=== PATIENT | female | born 1950 | race Caucasian/White ===

== ENCOUNTER 2020-03-30 19:24 | Inpatient (IN) | payer MEDICARE, MEDICAID, SELFPAY ==
[2020-03-30] VITALS (8 sets, daily range): BP systolic 133–167; BP diastolic 75–102; PULSE 95–117; RESP 20–36; TEMP 37.1; O2SAT 93–95
--- NOTE | ~2020-03-30 | XR_ITS ---
EXAMINATION: XR chest 2V DATE: 03/30/2020 20:33 INDICATION: Hypertension and asthma presenting with shortness of breath. TECHNIQUE: PA and lateral views of the chest were obtained. COMPARISON: Chest radiograph and CT dated 02/23/19 and chest radiograph dated 10/21/2016 FINDINGS: Emphysema with prominent chronic pleural parenchymal scarring at the bilateral apices which appears u nchanged since 10/20/2017. Small amount of dense linear embolized methylmethacrylate in a right middl e lobar pulmonary artery. No other airspace opacities, pulmonary edema, pleural effusion or pneumotho rax. The cardiomediastinal silhouette is normal. Old healed lateral right sixth rib fracture. Chronic compression fractures at T5-T7 with vertebral plasties at both T5 and T7. Embolized methylmethacryla te can be extending into vessels arising from the anterior aspect of the T7 vertebral body. IMPRESSION: 1. Emphysema with stable appearance of chronic prominent biapical pleural-parenchymal scarring. No ac julia cardiopulmonary disease. Reviewed, dictated and finalized at location A. IMPRESSION: 1. Emphysema with stable appearance of chronic prominent biapical pleural-paren chymal scarring. No acute cardiopulmonary disease.
--- NOTE | ~2020-03-30 | CT_ITS ---
EXAMINATION: CTA chest PE protocol EXAM DATE: 03/31/2020 17:28 INDICATION: Shortness of breath. History of COPD. TECHNIQUE: Spiral CTA of the chest (pulmonary arteries) was performed with 100 cc Omnipaque 350 intr avenous contrast injection. Images were acquired during the pulmonary arterial phase. Coronal maxi mum intensity projection 3D-reconstructions were created by the technologist on dedicated workstation . Axial, coronal and sagittal reformatted images were reviewed. The dose-length product (DLP) for t his examination was 152.12 mGy-cm. The exposure was tailored according to patient size (auto mA exp osure control), and iterative reconstruction (ASIR) was used as additional dose reduction technique. Comparison is made to prior examination from 02/23/2019. FINDINGS: Pulmonary arteries are well opacified and without intraluminal thrombus. Again there is s mall amount of embolized methyl methacrylate in right middle lobe segmental artery. No thoracic aorti c dissection. There are biapical opacities again noted consistent with scarring. The lungs are otherwise clear, wit h interval resolution of previously seen bilateral reticular nodular infectious process. There are no pleural or pericardial effusions. The scattered regions of right lower lobe endobronchial debris without evidence of postobstructive pneumonia. There is moderate emphysema and hyperinflation. There is no mediastinal, hilar or axillary lymphade nopathy. There is no pneumothorax. Heart normal in size. There is mild to moderate coronary art erial calcification, arterial sclerosis. Gallstones. T5, 6, 7 compression fractures, with methylmethacrylate injection of the T5 and T7 level s. There is moderate to severe loss of the T6 vertebral body height. Stable compared to prior study. IMPRESSION: 1. No pulmonary emboli or acute cardiopulmonary findings. 2. Moderate emphysema and hyperinflation. 3. Apical scarring Reviewed, dictated and finalized at location A.
--- NOTE | 2020-03-30 19:35 | ECG_ITS ---
Measurements Intervals [place] Rate: 114 P: 76 CO: 141 QRS: -7 QRSD: 93 T: 64 QT: 307 QTc: 424 Interpretive Statements SINUS TACHYCARDIA POSSIBLE RIGHT ATRIAL ENLARGEMENT EARLY PRECORDIAL R/S TRANSITION ABNORMAL ECG Electronically Signed On 03-31-2020 7:08:41 CDT by Gerson Zazueta D.O.
[2020-03-30 19:48] LABS: Basophils Percent Auto 0.3 % (0.2-1.2); Eosinophils Absolute Auto 0.1 K/mm3 (0-0.3); Eosinophils Percent Auto 0.4 % (0-4.4); Hematocrit 44.1 % (37.0-47.0); Hemoglobin 15.3 g/dL (12.0-15.0); Immature Granulocyte Absolute 0.23 K/mm3 (0.00-0.031); Immature Granulocyte Percent A 1.7 % (0-0.5); Lymphocytes Absolute Auto 1.24 K/mm3 (0.9-3.2); Lymphocytes Percent Auto 9.3 % (18.3-44.2); Mean Corpuscular HGB Conc 34.7 g/dl (32-36); Mean Corpuscular Hemoglobin 32.7 pg (26-34); Mean Corpuscular Volume 94.2 fl (80-100); Mean Platelet Volume 8.9 fl (7.4-10.4); Monocytes Absolute Auto 1.2 K/mm3 (0.1-0.6); Monocytes Percent Auto 9.3 % (2.6-8.5); Neutrophils Absolute Auto 10.5 K/mm3 (1.3-6.7); Platelet Count Result 168 k/mm3 (150-375); Red Blood Count 4.68 M/mm3 (4.2-5.4); Red Cell Distribution Width 13.2 % (11.5-14.5); White Blood Count 13.3 K/mm3 (4.5-10.0)
[2020-03-30 19:56] LABS: Blood Urea Nitrogen 21 mg/dL (7-17); Calcium 9.1 mg/dL (8.4-10.2); Carbon Dioxide 25 mmol/L (22-30); Chloride 99 mmol/L (98-107); Estimated CRCL calculation 56 ml/min; Estimated Glomerular Filt Rate > 60; Glucose 108 mg/dL (65-105); Potassium 4.5 mmol/L (3.4-5.0); Sodium 130 mmol/L (137-145)
--- NOTE | 2020-03-30 21:24 | ED.SOB ---
HPI - SOB/Dyspnea General Chief Complaint: Shortness of Breath/Dyspnea Stated Complaint: asthma attack Time Seen by Provider: 03/30/20 20:53 History of Present Illness HPI Narrative: Patient presents with her sister for increasing shortness of breath over the last couple weeks. She says she has a combination of asthma and COPD. She has all of her inhalers, and has recently gotten several steroid shot, in addition to 3 Medrol Dosepaks. She is so short of breath that she can hardly walk in the house. She is pretty much been staying on the couch. She has a little bit of a cough, but no fever chills or sweats. She still smokes cigarettes. When asked if she has wheezes, she says only when she lays down she has some crackles. MD elicited complaint: shortness of breath and cough Related Data Home Medications Medication Instructions Recorded Confirmed albuterol sulfate 90 mcg/actuation INHALATION 11/24/19 aerosol inhaler alprazolam 0.25 mg tablet 0.25 mg PO DAILY 11/24/19 ipratropium 0.5 mg-albuterol 3 mg ml INHALATION 11/24/19 (2.5 mg base)/3 mL nebulization soln methylprednisolone 4 mg tablets in See Rx Instructions PO PER PKG DIR 11/24/19 a dose pack ondansetron 4 mg disintegrating mg PO 11/24/19 tablet Allergies Allergy/AdvReac Type Severity Reaction Status Date / Time codeine AdvReac Unknown Nausea and Verified 03/30/20 19:34 Vomiting propoxyphene AdvReac Unknown Nausea Verified 03/30/20 19:34 Review of Systems Review of Systems: Narrative: CONSTITUTIONAL: Denies fever, chills, or sweats. EYES: Denies visual changes, redness, or discharge. ENT: Denies rhinorrhea, congestion, sore throat, or otalgia. CARDIOVASCULAR: Denies chest pain, palpitations, or edema. RESPIRATORY: She has cough and dyspnea. GASTROINTESTINAL: Denies abdominal pain, nausea, vomiting, or diarrhea. GENITOURINARY: Denies dysuria or hematuria. SKIN: Denies rash or itching. MUSCULOSKELETAL: Denies back pain, joint pain, or myalgia. NEUROLOGIC: Denies headache, numbness, or weakness. PSYCHIATRIC: Denies anxiety or depression. [facility] Past Medical History Medical History Asthma COPD (chronic obstructive pulmonary disease) Osteoarthritis of left knee Osteoporosis Surgical History Surgical History H/O Spinal surgery 5, 6, 7 = Nov 2017 Social History Social History Smoking status: Current every day smoker Alcohol intake: current Additional living arrangements comments: Sister & brother in law Gender identity (if verbalized by the patient): Female Exam Narrative: Exam Narrative: GENERAL: Thin woman with excessive facial wrinkles, and retractions. HEAD: Normocephalic, atraumatic. EYES: PERRLA and EOMI. ENT: Nares clear, no rhinorrhea or epistaxis. Mucous membranes moist. NECK: Supple. CHEST: Scattered wheezes and rhonchi. Intermittent size and retractions. Heart rate went up to 110 and oxygenation down to 94 with just sitting up in the bed. HEART: Regular rate and rhythm. No murmur heard. Normal peripheral pulses. ABDOMEN: Soft, nontender, nondistended, normal active bowel sounds. EXTREMITIES: Normal range of motion. No edema. SKIN: Warm, dry, no rash. NEURO: No focal deficits. Alert and oriented x3. PSYCH: Normal mood and affect. Course Reevaluation(s) Reevaluation #1: Talk to the patient about being admitted. She agrees. Date: 03/31/20 Time: 00:13 Consultations Consultation #1: Call Dr. Balderrama and he accepts the admission for observation. He says he will give her the stop smoking lecture. Date: 03/31/20 Time: 00:11 Vital Signs Vital signs: Vital Signs Temperature 98.7 F 03/30/20 19:30 Pulse Rate 117 H 03/30/20 19:30 Respiratory Rate 36 H 03/30/20 19:30 Blood Pressure 167/102 H 03/30/20 19:30 Pulse Oximetry 95 03/30/20 19:30
[2020-03-30] MEDS: methylPREDNISolone SOD SUCC 125 MG VIAL IV PUSH (21:32)
[2020-03-30 21:47] LABS: NT Pro B Type Natriuretic Pept 233 PG/ML (5-100)
[2020-03-30 21:51] LABS: Alveolar/Arterial O2 Gradient 50.7 mmHg; Fractional Inspired Oxygen 21 %; HCO3 ABG 22.7 mEq/l (22.0-26.0); Oxygen Content ABG 17.3 %vol (16.0-22.0); Oxygen Saturation ABG 90.5 % (95.0-100.0); Oxyhemoglobin 84.6 % THb (90.0-100.0); PCO2 ABG 35.3 mmHg (35.0-45.0); PO2 ABG 56.8 mmHg (80.0-100.0); Total Hemoglobin 14.6 g/dL (12.0-18.0); pH ABG 7.427 (7.350-7.450)
[2020-03-30 21:52] LABS: Device ROOM AIR; Modified Allen's Test Pass; Site Drawn LEFT RADIAL
[2020-03-30] MEDS: ALBUTEROL SULFATE NEB 2.5 MG/0.5 ML INH 10 MG INHALATION (21:55)
--- NOTE | 2020-03-30 22:57 | PC.NURSE ---
pt sister number [id number] Leslye Ott
[2020-03-31] VITALS (30 sets, daily range): BP systolic 131–158; BP diastolic 67–95; PULSE 65–115; RESP 16–37; TEMP 35.9–36.9; O2SAT 92–100; BMI 19.5
--- NOTE | 2020-03-31 01:23 | ADMGEN ---
This patient, Marcella Hernández, was admitted to 2 Medical Room 256-. Patient/family oriented to hospital policies and general routines including ID bracelet, bed and alarms, visiting hours, pain management, procedures, bathroom and other care routines, personal items, smoking policy, room service/diet, and visiting hours. Valuables list has been completed. Information on how to activate the Rapid Response Team has been discussed. Patient/Family are encouraged to report perceived risks to care and to ask questions if they do not understand what they are told or what they should do.
--- NOTE | 2020-03-31 01:49 | PM.IMHP ---
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 The patient has had several medrol dose packs and continued to have severe shortness of breath. The patient continues to smoke cigarettes despite her symptoms and has not been getting any relief from her inhalers. She denies any chest pain, fevers or chills. The patient was treated in the ER tonight with several breathing treatments and solumedrol but continued to have shortness of breath and wheezing. We were asked to admit the patient to the hospital for further care. She denies any other symptoms at this time. Review of Systems Review of Systems: All systems reviewed & are unremarkable except as noted in HPI and below PMFSH Past Medical History Medical History Asthma COPD (chronic obstructive pulmonary disease) Osteoarthritis of left knee Osteoporosis Surgical History Surgical History H/O Spinal surgery 5, 6, 7 = Nov 2017 Family History Family History Other Unknown family medical history Social History Social History Smoking packs per day: 10 Smoking cigarettes per day: 200.0 Years smoked: 30 Smoking pack-years: 300.00 Smoking status: Current every day smoker Tobacco type: cigarettes Alcohol intake: former Substance use: former Substance use type: does not use Additional living arrangements comments: Sister & brother in law Gender identity (if verbalized by the patient): Female Spiritual care concerns: No Meds Home Medications and Allergies Home Medications Medication Instructions Recorded Confirmed Type albuterol sulfate 90 mcg/actuation 90 mcg INHALATION Q4H PRN 11/24/19 03/31/20 History aerosol inhaler alprazolam 0.25 mg tablet 0.25 mg PO HS 11/24/19 03/31/20 History ipratropium 0.5 mg-albuterol 3 mg See Rx Instructions .ROUTE .COMPLEX 11/24/19 03/31/20 History (2.5 mg base)/3 mL nebulization soln ondansetron 4 mg disintegrating 4 mg PO DAILY PRN 11/24/19 03/31/20 History tablet alprazolam [Xanax] 1 mg PO TID PRN 03/31/20 03/31/20 History amlodipine 5 mg PO DAILY 03/31/20 03/31/20 History sertraline [Zoloft] 50 mg PO DAILY 03/31/20 03/31/20 History Allergies Allergy/AdvReac Type Severity Reaction Status Date / Time codeine AdvReac Unknown Nausea and Verified 03/30/20 19:34 Vomiting propoxyphene AdvReac Unknown Nausea Verified 03/30/20 19:34 Vital Signs Vital Signs - 24 hr 03/30/20 19:30 03/30/20 19:35 03/30/20 21:12 Temperature 37.1 C Pulse Rate 117 H 99 95 Respiratory Rate 36 H 25 H Blood Pressure 167/102 H 162/75 H Pulse Oximetry 95 95 94 03/30/20 21:56 03/30/20 22:02 03/30/20 22:29 Temperature Pulse Rate 104 H 104 H 103 H Respiratory Rate 33 H 33 H 26 H Blood Pressure 142/102 H Pulse Oximetry 95 95 03/30/20 22:34 03/30/20 23:47 03/31/20 00:21 Temperature Pulse Rate 102 H 99 92 Respiratory Rate 29 H 20 20 Blood Pressure 133/84 140/72 Pulse Oximetry 93 96 03/31/20 00:59 03/31/20 01:29 03/31/20 01:30 Temperature 35.9 C L 35.9 C L Pulse Rate 99 107 H 107 H Respiratory Rate 20 20 20 Blood Pressure 136/67 149/85 H 149/85 H Pulse Oximetry 99 97 97 03/31/20 01:40 Temperature Pulse Rate 111 H Respiratory Rate Blood Pressure Pulse Oximetry Exam Const: General: cooperative, healthy appearing, alert and awake Nutritional Appearance: thin and underweight Orientation/consciousness: patient oriented x3 HENMT: Head: normal to inspection General
[2020-03-31] MEDS: ALPRAZOLAM 0.25 MG TABLET PO ×3 (02:42→20:46)
[2020-03-31] MEDS: ALBUTEROL SULFATE NEB 2.5 MG/0.5 ML INH 5 MG INHALATION ×2 (03:27→08:10)
[2020-03-31 05:41] LABS: Basophils Percent Auto 0.2 % (0.2-1.2); Blood Urea Nitrogen 17 mg/dL (7-17); Calcium 8.3 mg/dL (8.4-10.2); Carbon Dioxide 28 mmol/L (22-30); Chloride 100 mmol/L (98-107); Estimated CRCL calculation 62 ml/min; Estimated Glomerular Filt Rate > 60; Glucose 143 mg/dL (65-105); Hematocrit 40.9 % (37.0-47.0); Immature Granulocyte Absolute 0.22 K/mm3 (0.00-0.031); Immature Granulocyte Percent A 2.3 % (0-0.5); Lymphocytes Absolute Auto 0.52 K/mm3 (0.9-3.2); Lymphocytes Percent Auto 5.3 % (18.3-44.2); Mean Corpuscular HGB Conc 34.2 g/dl (32-36); Mean Corpuscular Hemoglobin 32.4 pg (26-34); Mean Corpuscular Volume 94.7 fl (80-100); Mean Platelet Volume 9.3 fl (7.4-10.4); Monocytes Absolute Auto 0.2 K/mm3 (0.1-0.6); Monocytes Percent Auto 2.3 % (2.6-8.5); Neutrophils Absolute Auto 8.8 K/mm3 (1.3-6.7); Neutrophils Percent Auto 89.9 % (45.5-73.1); Platelet Count Result 149 k/mm3 (150-375); Potassium 4.1 mmol/L (3.4-5.0); Red Blood Count 4.32 M/mm3 (4.2-5.4); Red Cell Distribution Width 12.9 % (11.5-14.5); Sodium 130 mmol/L (137-145); White Blood Count 9.8 K/mm3 (4.5-10.0)
[2020-03-31] MEDS: methylPREDNISolone SOD SUCC 125 MG VIAL 60 MG IV PUSH ×4 (06:02→23:59)
[2020-03-31] MEDS: AMLODIPINE BESYLATE 5 MG TABLET PO (09:10)
[2020-03-31] MEDS: SERTRALINE HCL 50 MG TABLET PO (09:10)
--- NOTE | 2020-03-31 12:50 | ECG_ITS ---
Measurements Intervals [place] Rate: 86 P: 67 VT: 143 QRS: 2 QRSD: 93 T: 57 QT: 363 QTc: 434 Interpretive Statements SINUS RHYTHM NORMAL ECG Electronically Signed On 03-31-2020 14:19:43 CDT by Gerson Zazueta D.O.
--- NOTE | 2020-03-31 13:04 | PM.IMPN ---
Progress Note: A&P Assessment and Plan (1) Acute respiratory failure: Qualifiers: Respiratory failure complication: hypoxia Qualified Code(s): J96.01 - Acute respiratory failure with hypoxia Code(s): J96.00 - Acute respiratory failure, unspecified whether with hypoxia or hypercapnia Status: Acute Assessment and Plan: Appears to be result of COPD exacerbation. Patient does not wear oxygen at home. Currently on 2 L with good oxygenation. No CO2 retention on ABG. Chest x-ray on admission with emphysema with stable appearance of chronic prominent biapical pleural parenchymal scarring but no acute cardiopulmonary disease. Continue nebulizer treatments and IV steroids. With patient's severity of shortness of breath, will check CTA chest. Will continue to monitor closely. Continue other treatments for COPD exacerbation as noted below. Will have patient on bed rest with bedside commode today. Increase activity as respiratory status allows. With patient's issues today, total time spent in critical care 35 minutes. (2) Acute exacerbation of chronic obstructive pulmonary disease: Code(s): J44.1 - Chronic obstructive pulmonary disease with (acute) exacerbation Status: Acute Assessment and Plan: Chest x-ray as noted above. CTA chest now ordered. Continue nebulizer treatments and IV steroids. Will also add Symbicort. Adjust treatment pending her course. (3) SVT (supraventricular tachycardia): Code(s): I47.1 - Supraventricular tachycardia Status: Acute Assessment and Plan: On review of telemetry, patient more likely with SVT. Has had this in the past when hospitalized in 2017 and did see cardiology at that time. Echocardiogram in 2017 with EF 50%, no focal wall motion abnormalities. Will order echocardiogram for Thursday as cannot do on the weekend unless becomes emergent. Albuterol nebulizer change to Xopenex. Low-dose metoprolol tartrate given as already received amlodipine for blood pressure but will be cautious as patient does have COPD. New EKG ordered with sinus rhythm with rate controlled. Repeat BMP ordered due to high T-waves but normal. No significant changes from previous EKGs in comparison. Continue telemetry. (4) Anxiety: Code(s): F41.9 - Anxiety disorder, unspecified Status: Acute Assessment and Plan: Adding to shortness of breath. Will allow p.r.n. alprazolam along with scheduled alprazolam at HS. Also continue sertraline. Adjust treatment as needed. (5) Hypertension: Qualifiers: Hypertension type: essential hypertension Qualified Code(s): I10 - Essential (primary) hypertension Code(s): I10 - Essential (primary) hypertension Status: Acute Assessment and Plan: Patient reports recently started on amlodipine which has helped with blood pressure. Blood pressure reviewed on 03/31/2020 with mild elevation. Will monitor with amlodipine and metoprolol in place. Adjust treatment if needed. (6) Tobacco dependence: Code(s): F17.200 - Nicotine dependence, unspecified, uncomplicated Status: Acute Assessment and Plan: Cessation encouraged. (7) DVT prophylaxis: Code(s): Z29.9 - Encounter for prophylactic measures, unspecified Status: Acute Assessment and Plan: SCDs. Time Spent With Patient Time with patient: 25 - 35 minutes Subjective Date/time seen: 03/31/20 13:04 Interval history: Date of Service: 03/31/2020. Admitted with COPD exacerbation. Called by nursing with heart rate increased to 190s. Patient awake and alert with heart rate already decreased by time I am in room. Does complain of severe shortness of breath. No cough. Will get lightheaded at times. No chest pain or pressure. No abdominal pain. Review of Systems Review of Systems: Narrative: Does not feel well. Constitutional: Constitutional: Denies chills and Denies fever(s) ENT: Denies dysphagia Car
[2020-03-31] MEDS: PANTOPRAZOLE 40 MG TABLET PO (14:13)
[2020-03-31] MEDS: METOPROLOL TARTRATE 12.5 MG TABLET PO ×2 (14:13→20:47)
[2020-03-31 16:17] LABS: Blood Urea Nitrogen 18 mg/dL (7-17); Carbon Dioxide 27 mmol/L (22-30); Chloride 97 mmol/L (98-107); Estimated CRCL calculation 62 ml/min; Estimated Glomerular Filt Rate > 60; Glucose 130 mg/dL (65-105); Potassium 4.3 mmol/L (3.4-5.0); Sodium 128 mmol/L (137-145)
[2020-04-01] VITALS (27 sets, daily range): BP systolic 108–148; BP diastolic 62–74; PULSE 54–158; RESP 14–29; TEMP 36–36.9; O2SAT 93–100
[2020-04-01 05:02] LABS: Blood Urea Nitrogen 25 mg/dL (7-17); Calcium 8.2 mg/dL (8.4-10.2); Carbon Dioxide 31 mmol/L (22-30); Chloride 99 mmol/L (98-107); Estimated CRCL calculation 54 ml/min; Estimated Glomerular Filt Rate > 60; Glucose 123 mg/dL (65-105); Magnesium 2.3 mg/dL (1.6-2.3); Potassium 4.4 mmol/L (3.4-5.0); Sodium 131 mmol/L (137-145)
[2020-04-01] MEDS: methylPREDNISolone SOD SUCC 125 MG VIAL 60 MG IV PUSH ×3 (05:24→20:08)
[2020-04-01] MEDS: ALPRAZOLAM 0.25 MG TABLET PO ×3 (05:30→20:09)
[2020-04-01] MEDS: PANTOPRAZOLE 40 MG TABLET PO (08:24)
[2020-04-01] MEDS: SERTRALINE HCL 50 MG TABLET PO (08:24)
[2020-04-01] MEDS: AMLODIPINE BESYLATE 5 MG TABLET PO (08:24)
[2020-04-01] MEDS: METOPROLOL TARTRATE 12.5 MG TABLET PO ×2 (08:24→18:48)
--- NOTE | 2020-04-01 12:11 | PM.IMPN ---
Progress Note: A&P Assessment and Plan (1) Acute respiratory failure: Qualifiers: Respiratory failure complication: hypoxia Qualified Code(s): J96.01 - Acute respiratory failure with hypoxia Code(s): J96.00 - Acute respiratory failure, unspecified whether with hypoxia or hypercapnia Status: Acute Assessment and Plan: Appears to be result of COPD exacerbation. Patient does not wear oxygen at home. Currently on 3 L with good oxygenation. No CO2 retention on ABG. Chest x-ray on admission with emphysema with stable appearance of chronic prominent biapical pleural parenchymal scarring but no acute cardiopulmonary disease. CTA chest with no pulmonary emboli or acute cardiopulmonary findings, moderate emphysema and hyperinflation and apical scarring. Starting to make some improvement today. Will try to increase activity but still have bedside commode available. Continue Xopenex nebulizer treatments. Add Atrovent nebulizer treatments as already not in place. Will start weaning IV steroids. Will continue to monitor closely. Received call from respiratory therapy this afternoon. Patient continues to have increased respiratory difficulty but also known to be anxious. Will try BiPAP just to help with her work of breathing. (2) Acute exacerbation of chronic obstructive pulmonary disease: Code(s): J44.1 - Chronic obstructive pulmonary disease with (acute) exacerbation Status: Acute Assessment and Plan: Chest x-ray as noted above. CTA chest as noted above. Weaning IV steroids. Continue nebulizer treatments. Continue Symbicort. Will continue to monitor and adjust treatment as needed. (3) SVT (supraventricular tachycardia): Code(s): I47.1 - Supraventricular tachycardia Status: Acute Assessment and Plan: On review of telemetry, patient more likely with SVT. Has had this in the past when hospitalized in 2017 and did see cardiology at that time. Also had tachy arrhythmia when hospitalized for COPD exacerbation in 2019. Echocardiogram in 2017 with EF 50%, no focal wall motion abnormalities. Now on Xopenex nebulizer treatment in place of albuterol. Does have medication for anxiety. Additionally, low-dose metoprolol started yesterday as patient already on amlodipine for her hypertension. On review of telemetry on 04/01/2020 patient does have PVCs but generally in sinus rhythm. EKG on 03/31/2020 with sinus rhythm with rate controlled. Electrolytes are within normal limits. Echocardiogram ordered for tomorrow. Will continue to monitor and adjust treatment as needed. Continue telemetry for now. (4) Anxiety: Code(s): F41.9 - Anxiety disorder, unspecified Status: Acute Assessment and Plan: Adding to shortness of breath. Will continue to allow p.r.n. alprazolam along with scheduled alprazolam at HS. Will also continue sertraline. Adjust treatment as needed. (5) Hypertension: Qualifiers: Hypertension type: essential hypertension Qualified Code(s): I10 - Essential (primary) hypertension Code(s): I10 - Essential (primary) hypertension Status: Chronic Assessment and Plan: Blood pressure reviewed on 04/01/2020 with some elevated readings but improving. Will continue to monitor on amlodipine and metoprolol. Adjust treatment as needed. (6) Tobacco dependence: Code(s): F17.200 - Nicotine dependence, unspecified, uncomplicated Status: Acute Assessment and Plan: Cessation encouraged again today. (7) DVT prophylaxis: Code(s): Z29.9 - Encounter for prophylactic measures, unspecified Status: Acute Assessment and Plan: SCDs. Time Spent With Patient Time with patient: 15 - 25 minutes Subjective Date/time seen: 04/01/20 12:11 Interval history: Date of Service: 04/01/2020. Admitted with COPD exacerbation. Still with shortness of breath but feels a little bit better today. Does still have ch
[2020-04-01] MEDS: ALBUTEROL SULFATE NEB 2.5 MG/0.5 ML INH INHALATION (12:24)
[2020-04-01] MEDS: ONDANSETRON INJ 4 MG/2 ML VIAL IV PUSH (15:45)
[2020-04-01] MEDS: IPRATROPIUM BR 0.02% INH SOLN 0.5 MG/2.5 ML VIAL INHALATION (20:12)
[2020-04-02] VITALS (21 sets, daily range): BP systolic 127–137; BP diastolic 51–75; PULSE 64–176; RESP 18–24; TEMP 36.1–37.5; O2SAT 79–98
--- NOTE | 2020-04-02 | ECHO_ITS ---
Patient Info Name: Marcella Barreto Hernández Age: 69 years : 1950 Gender: Female Ht: 64 in Wt: 113 lbs BSA: 1.52 m2 HR: 66 bpm BP: 130 / 55 mmHg Heart Rhythm: Sinus Rhythm Technical Quality: Good Exam Date: 04/02/2020 9:42 AM Exam Location: [facility] Patient Status: Inpatient Admit Date: 04/01/2020 Staff Ordering Physician: Ronda Doe MD Director Patient Accounting: Gus Pfeiffer, VALDEZ, RT Attending Provider: Calvin Lee MD Referring Physician: KIAN ISABEL; Exam Type: CA echo doppler color flow Study Info Indications R06.02 - Shortness of breath Complete two-dimensional, color flow and Doppler transthoracic echocardiogram is performed. Summary 1. Left ventricular chamber dimension is normal. 2. The left ventricular diastolic function is normal. 3. Left ventricular systolic function is normal, estimated at 55-60%. 4. No significant valvular pathology. 5. Compared with examination from 2017 there have been no changes. Left Ventricle Left ventricular chamber dimension is normal. Left ventricular systolic function is normal, estimated at 55-60%. The left ventricular diastolic function is normal. Right Ventricle Right ventricular chamber dimension is normal. Left Atria Left atrial chamber dimension is normal. Right Atria Right atrial chamber dimension is normal. Aortic Valve The aortic valve is normal. Pulmonic Valve The pulmonic valve is not well visualized. Mitral Valve The mitral valve has normal leaflets. Tricuspid Valve The tricuspid valve leaflets are normal. Pericardium/Pleural The pericardium appears normal. Aorta The aortic root size at the sinus of Valsalva is normal. Left Ventricular Outflow Tract Name Value Normal LVOT 2D LVOT Diameter 2.0 cm LVOT Doppler LVOT Peak Gradient 4 mmHg LVOT Mean Gradient 2 mmHg LVOT VTI 20 cm LVOT VTI/AV VTI Ratio 0.6 LVOT Stroke Volume 62 ml LVOT CO 4.0 l/min LVOT CI 2.6 l/min/m2 Mitral Valve Name Value Normal MV Doppler MV Decel Rabun 298 cm/s2 MV PHT 75 ms MV Area (PHT) 2.9 cm2 4.0-5.0 MV Diastolic Function MV E Peak Velocity 77 cm/s MV A Peak Velocity 91 cm/s MV E/A 0.8 MV Decel Time 257 ms Tricuspid Valve Name Value Normal
[2020-04-02] MEDS: IPRATROPIUM BR 0.02% INH SOLN 0.5 MG/2.5 ML VIAL INHALATION ×3 (01:11→14:47)
[2020-04-02] MEDS: ONDANSETRON INJ 4 MG/2 ML VIAL IV PUSH (01:21)
[2020-04-02] MEDS: ALPRAZOLAM 0.25 MG TABLET PO ×3 (07:08→16:23)
[2020-04-02] MEDS: methylPREDNISolone SOD SUCC 125 MG VIAL 60 MG IV PUSH ×2 (07:09→11:47)
[2020-04-02] MEDS: AMLODIPINE BESYLATE 5 MG TABLET PO (09:15)
[2020-04-02] MEDS: SERTRALINE HCL 50 MG TABLET PO (09:16)
[2020-04-02] MEDS: PANTOPRAZOLE 40 MG TABLET PO (09:16)
[2020-04-02 09:17] LABS: Blood Urea Nitrogen 32 mg/dL (7-17); Calcium 7.9 mg/dL (8.4-10.2); Carbon Dioxide 30 mmol/L (22-30); Chloride 100 mmol/L (98-107); Estimated CRCL calculation 48 ml/min; Estimated Glomerular Filt Rate > 60; Glucose 135 mg/dL (65-105); Magnesium 2.4 mg/dL (1.6-2.3); Sodium 132 mmol/L (137-145)
[2020-04-02] MEDS: METOPROLOL TARTRATE 12.5 MG TABLET PO ×2 (09:19→10:41)
--- NOTE | 2020-04-02 13:33 | PM.IMPN ---
Progress Note: A&P Assessment and Plan (1) Acute respiratory failure: Qualifiers: Respiratory failure complication: hypoxia Qualified Code(s): J96.01 - Acute respiratory failure with hypoxia Code(s): J96.00 - Acute respiratory failure, unspecified whether with hypoxia or hypercapnia Status: Acute Assessment and Plan: Appears to be result of COPD exacerbation. Patient does not wear oxygen at home but remains on oxygen here. No CO2 retention on ABG. Chest x-ray on admission with emphysema with stable appearance of chronic prominent biapical pleural parenchymal scarring but no acute cardiopulmonary disease. CTA chest with no pulmonary emboli or acute cardiopulmonary findings, moderate emphysema and hyperinflation and apical scarring. Definitely improved today. Continue Xopenex and Atrovent nebulizer treatments. Currently on IV steroids. Had long discussion with patient regarding treatment plan. She did become anxious when I explained I would not be here tomorrow. Decision was made to monitor patient today and re-evaluate later. Home oxygen evaluation ordered after discussion with patient and completed with patient currently requiring 2 L oxygen continuously. Return to see patient. Advised patient echocardiogram remains without change. Re-examined patient with lung sounds clear. Will discharge home tonight on tapering prednisone but will need to follow-up with her primary physician within 1 week. (2) Acute exacerbation of chronic obstructive pulmonary disease: Code(s): J44.1 - Chronic obstructive pulmonary disease with (acute) exacerbation Status: Acute Assessment and Plan: Chest x-ray as noted above. CTA chest as noted above. Transition to tapering prednisone at discharge. Continue Symbicort. Continue nebulizer/HFA at home. (3) SVT (supraventricular tachycardia): Code(s): I47.1 - Supraventricular tachycardia Status: Acute Assessment and Plan: On review of telemetry, patient more likely with SVT. Has had this in the past when hospitalized in 2017 and did see cardiology at that time. Also had tachy arrhythmia when hospitalized for COPD exacerbation in 2019. Echocardiogram in 2017 with EF 50%, no focal wall motion abnormalities. Now on Xopenex nebulizer treatment in place of albuterol. Does have medication for anxiety. Telemetry reviewed on 04/02/2020 with patient still having episodes of SVT. Metoprolol increased this morning. Electrolytes within normal limits. Echocardiogram today with EF 55-60% and essentially no change from 2017. Will need to follow as outpatient. (4) Anxiety: Code(s): F41.9 - Anxiety disorder, unspecified Status: Acute Assessment and Plan: Adding to shortness of breath. Will continue to allow p.r.n. alprazolam along with scheduled alprazolam at HS. Will also continue sertraline. (5) Hypertension: Qualifiers: Hypertension type: essential hypertension Qualified Code(s): I10 - Essential (primary) hypertension Code(s): I10 - Essential (primary) hypertension Status: Chronic Assessment and Plan: Blood pressure reviewed on 04/02/2020 and presently controlled. Continue amlodipine and metoprolol. (6) Tobacco dependence: Code(s): F17.200 - Nicotine dependence, unspecified, uncomplicated Status: Acute Assessment and Plan: Cessation encouraged. (7) DVT prophylaxis: Code(s): Z29.9 - Encounter for prophylactic measures, unspecified Status: Acute Assessment and Plan: SCDs. Time Spent With Patient Time with patient: 15 - 25 minutes Subjective Date/time seen: 04/02/20 13:33 Interval history: Date of Service: 04/02/2020. Admitted with COPD exacerbation. Feels better today. Shortness of breath still present but improving. Wheezing improving. Up did have episode of increased heart rate this morning but much better now. Does still have anxiety. No ch
--- NOTE | 2020-04-02 14:56 | HOMEO2EVAL ---
Home Oxygen Evaluation RC: Home Oxygen (O2) Evaluation Start: 04/02/20 13:34 Freq: ONCE Status: Active Protocol: RPE Activity Type Activity Date Activity User E-Sign Co-Sign Detail Recorded Client Recorded Date Recorded By Document 04/02/20 14:45 KRM [email or web address] 04/02/20 14:56 KRM Document 04/02/20 14:47 KRM [email or web address] 04/02/20 14:56 KRM Document 04/02/20 14:50 KRM [email or web address] 04/02/20 14:56 KRM Document 04/02/20 14:56 KRM [email or web address] 04/02/20 14:56 KRM 04/02/20 04/02/20 04/02/20 14:45 14:47 14:50 Home O2 Evaluation Test Phase Resting Resting Exercise Oxygen Delivery Room Air Nasal Cannula Nasal Cannula Oxygen Flow Rate (L/min) 2 2 Pulse Oximetry (90-100 %) 79 L 92 90 Pulse Rate (60-100 beats/min) 104 H 77 96 Activity Tolerance Fair Ambulation Distance (feet) 50 Home Oxygen Evaluation Comments Treatment Charges O2 Evaluation 04/02/20 14:56 Home O2 Evaluation Test Phase Resting Oxygen Delivery Nasal Cannula Oxygen Flow Rate (L/min) 2 Pulse Oximetry (90-100 %) 92 Pulse Rate (60-100 beats/min) 78 Activity Tolerance Ambulation Distance (feet) Home Oxygen Evaluation Comments 2LPM AT REST AND WITH ACTIVITY. Treatment Charges
--- NOTE | 2020-04-02 15:56 | PCRCNOTE ---
PT. REQUIRES 2LPM AT REST AND WITH ACTIVITY. [facility] DME [phone].
--- NOTE | 2020-04-02 16:45 | PM.DS ---
DS: Admitting Diagnosis Admitting Diagnosis Admitting Diagnosis: Chronic obstructive pulmonary disease with (acute) exacerbation DS: Discharge Diagnosis Discharge Diagnosis (1) Acute respiratory failure: Qualifiers: Respiratory failure complication: hypoxia Qualified Code(s): J96.01 - Acute respiratory failure with hypoxia Code(s): J96.00 - Acute respiratory failure, unspecified whether with hypoxia or hypercapnia Status: Acute (2) Acute exacerbation of chronic obstructive pulmonary disease: Code(s): J44.1 - Chronic obstructive pulmonary disease with (acute) exacerbation Status: Acute (3) SVT (supraventricular tachycardia): Code(s): I47.1 - Supraventricular tachycardia Status: Acute (4) Anxiety: Code(s): F41.9 - Anxiety disorder, unspecified Status: Acute (5) Hypertension: Qualifiers: Hypertension type: essential hypertension Qualified Code(s): I10 - Essential (primary) hypertension Code(s): I10 - Essential (primary) hypertension Status: Chronic (6) Tobacco dependence: Code(s): F17.200 - Nicotine dependence, unspecified, uncomplicated Status: Acute DS: Summary Hospital Course Reason for hospitalization: Shortness of breath. Hospital Course: Date of Service of Discharge: April 02, 2020. History of Present Illness: Patient is a 69-year-old woman with known COPD, hypertension, and continued tobacco use who presented to the emergency room with complaint of worsening shortness of breath, dry cough and wheezing for the past few weeks. She has been on several Medrol Dosepaks with continued severe shortness of breath. She does continue to smoke cigarettes despite her symptoms. She does have inhalers at home but has not been getting any relief. No recent chest pain, fever or chills. Cough is nonproductive. No nausea or vomiting. No headache or dizziness. In the emergency room, she did receive several breathing treatments and Solu-Medrol but continued to have shortness of breath and wheezing. As result, she was admitted for further evaluation and treatment. Course in Hospital: Patient was admitted to the medical floor with telemetry where she remained for the duration of her stay. She was started on IV Solu-Medrol along with nebulizer treatments. No antibiotics were given as these were not necessary. Patient additionally was given Symbicort. She continued to have shortness of breath which was aggravated by anxiety as well as episodes of SVT. CTA chest was done while she was in hospital with no pulmonary emboli or acute cardiopulmonary findings but moderate emphysema and hyperinflation along with apical scarring. Patient did make some steady progress but continued to require oxygen. Patient was substantially by 04/02/2020. Wheezing with minimal with aeration improved but still decreased. Discussion was held with patient regarding staying in hospital at least additional 1 day. Patient was somewhat hesitant. Decision was then made to monitor patient through the day on the day of discharge. On re-evaluation later in the day wheezing was not present and she was stable on 2 L. She did have a home oxygen evaluation completed with need for 2 L of oxygen at rest and with activity. She was encouraged to pursue smoking cessation. During her stay, she did have several episodes of tachyarrhythmia. In review of records, she has been noted to have this previously. Tachyarrhythmia was felt to be SVT. Patient was started on low-dose metoprolol which was advanced during her stay with no further episodes by the afternoon of discharge. She was also continued on her home amlodipine with blood pressure remaining stable on both medications. An echocardiogram was ordered with EF 55-60% and essentially no change from 2017. As noted, she did have significant issues with anxiety which would worsen her shortness of breath. She was continued on her home alpraz
== END 2020-04-02 17:29 | disposition home or self-care (01) | DRG 190 ==
LOC: ANHED 22:25 → ANH2MED 03-31 00:52
PROVIDERS: Admitting Provider Family Medicine; Emergency Provider Emergency Medicine; PCP Family Medicine; Visit Provider Hospitalist
DX: J43.9 Emphysema, unspecified (principal); J96.21 Acute and chronic respiratory failure with hypoxia; I47.1 Supraventricular tachycardia; F41.9 Anxiety disorder, unspecified; I10 Essential (primary) hypertension; M17.12 Unilateral primary osteoarthritis, left knee; M81.0 Age-related osteoporosis without current pathological fracture; F17.200 Nicotine dependence, unspecified, uncomplicated
CPT/HCPCS: 36415; 36600; 71046; 71275; 80048; 82805; 83735; 83880; 85025; 93005; 93306; 94618; 94640; 96365; 96374; 96375; 96376; 99285; A9270; G0378; J0456; J2405; J2930; Q9967

== ENCOUNTER 2020-09-13 12:26 | Emergency (ER) | payer MEDICARE, MEDICAID, SELFPAY ==
[2020-09-13] VITALS (22 sets, daily range): BP systolic 119–157; BP diastolic 74–94; PULSE 93–107; RESP 14–28; TEMP 37.1; O2SAT 95–100
--- NOTE | ~2020-09-13 | XR_ITS ---
EXAMINATION: XR chest 1V DATE: 09/13/2020 13:53 INDICATION: Chest injury. TECHNIQUE: A single frontal view of the chest was obtained. COMPARISON: Chest 2 views 03/30/2020, chest CT 03/31/2020 FINDINGS: There are lucencies in the upper lungs, consistent with emphysema. There is scarring at the lung apices. No pleural effusion or pneumothorax. The heart size is normal. There is an old healed f racture of right seventh rib. There are chronic fractures of T5-T7 vertebral bodies with vertebroplas ty at 2 levels. IMPRESSION: 1. Chronic scarring at the lung apices. 2. Emphysema. Reviewed, dictated and finalized at location A. E FINISHER
--- NOTE | ~2020-09-13 | XR_ITS ---
EXAMINATION: XR knee RT 3V DATE: 09/13/2020 13:53 INDICATION: Right knee injury. TECHNIQUE: 3 views of right knee were obtained. COMPARISON: None. FINDINGS: Bone alignment is normal. No fracture. There is mild osteoarthritis of lateral and patellof emoral compartments characterized by tiny marginal osteophytes. No knee joint effusion. IMPRESSION: 1. Mild right knee osteoarthritis. Reviewed, dictated and finalized at location A. TH SERVICES MANAGER
--- NOTE | ~2020-09-13 | CT_ITS ---
EXAMINATION: CT cervical spine wo con EXAM DATE: 09/13/2020 13:34 INDICATION: Head injury. TECHNIQUE: Spiral CT of the cervical spine was performed without contrast. Axial images were reviewe d. Coronal and sagittal reformatted images were also reviewed. The dose-length product (DLP) for thi s examination was 153.45 mGy-cm. The exposure was tailored according to patient size (auto mA exposu re control), and iterative reconstruction (ASIR) was used as additional dose reduction technique. Th ere is no prior study for comparison. FINDINGS: There is no evidence of acute cervical fracture. The odontoid process is intact. Pre-dens space is normal. Prevertebral soft tissue is normal. There are no soft tissue abnormalities identi fied. There is no disc space widening or traumatic vertebral body subluxation suspected. There is m oderate loss of the C5-6 disc height. Moderate right neural foraminal stenosis at that level and mild to moderate on the left. The vertebral body and disc heights are otherwise well maintained. Biapical opacities most likely scarring. There is some emphysema. A detailed level by level evaluation of sp ondylosis can be added as addendum if requested. IMPRESSION: 1. No acute cervical fracture. Reviewed, dictated and finalized at location A. PRODUCER
--- NOTE | ~2020-09-13 | XR_ITS ---
EXAMINATION: XR pelvis 1-2V DATE: 09/13/2020 13:53 INDICATION: Pelvis injury. TECHNIQUE: An anteroposterior view of the pelvis was obtained. COMPARISON: None. FINDINGS: Bone alignment is normal. No fracture. Right hip joint is normal. There is mild left hip os teoarthritis. IMPRESSION: 1. Mild left hip osteoarthritis. Reviewed, dictated and finalized at location A. E FEDERAL RELATIONS DEPUTY DIRECTOR
--- NOTE | ~2020-09-13 | XR_ITS ---
EXAMINATION: XR knee LT 3V DATE: 09/13/2020 13:53 INDICATION: Left knee injury. TECHNIQUE: 3 views of left knee were obtained. COMPARISON: Left knee radiographs 11/24/2019 FINDINGS: Bone alignment is normal. No fracture. There is moderate tricompartmental osteoarthritis. T here is a small knee joint effusion. IMPRESSION: 1. Moderate left knee osteoarthritis. 2. Small left knee joint effusion. Reviewed, dictated and finalized at location A. B CONSULTANT
--- NOTE | ~2020-09-13 | CT_ITS ---
EXAMINATION: CT brain wo con DATE: 09/13/2020 13:33 INDICATION: Fall. TECHNIQUE: Computed tomography (CT) of the head was performed without intravenous contrast. The mA wa s adjusted according to patient size. Iterative reconstruction technique was employed. The dose-lengt h product was 605.33 mGy-cm. COMPARISON: None FINDINGS: There is no intracranial hemorrhage, acute infarction, or abnormal intracranial mass lesion . There is an old lacunar infarct in the right lentiform nucleus. There are scattered areas of low at tenuation in the cerebral white matter, which is within normal limits for the patient's age. The vent ricles are normal in size. There are likely changes of ocular lens replacement surgeries. The paranas al sinuses are clear. The mastoid air cells are normal. IMPRESSION: 1. Old lacunar infarct in the right lentiform nucleus. Reviewed, dictated and finalized at location A. AND EYE SEWING MACHINE OPERATOR
[2020-09-13 13:13] LABS: Basophils Absolute Auto 0.1 K/mm3 (0.0-0.1); Basophils Percent Auto 0.6 % (0.2-1.2); Eosinophils Absolute Auto 0.1 K/mm3 (0-0.3); Eosinophils Percent Auto 1.3 % (0-4.4); Hematocrit 30.3 % (37.0-47.0); Hemoglobin 10.1 g/dL (12.0-15.0); Immature Granulocyte Absolute 0.32 K/mm3 (0.00-0.031); Immature Granulocyte Percent A 3.9 % (0-0.5); Lymphocytes Percent Auto 18.2 % (18.3-44.2); Mean Corpuscular HGB Conc 33.3 g/dl (32-36); Mean Corpuscular Hemoglobin 34.2 pg (26-34); Mean Corpuscular Volume 102.7 fl (80-100); Mean Platelet Volume 9.1 fl (7.4-10.4); Monocytes Absolute Auto 0.7 K/mm3 (0.1-0.6); Monocytes Percent Auto 8.3 % (2.6-8.5); Neutrophils Absolute Auto 5.6 K/mm3 (1.3-6.7); Neutrophils Percent Auto 67.7 % (45.5-73.1); Platelet Count Result 172 k/mm3 (150-375); Red Blood Count 2.95 M/mm3 (4.2-5.4); White Blood Count 8.2 K/mm3 (4.5-10.0)
[2020-09-13 13:24] LABS: Anion Gap 7 mmol/L (8-16); Blood Urea Nitrogen 17 mg/dL (7-17); Calcium 9.4 mg/dL (8.4-10.2); Carbon Dioxide 26 mmol/L (22-30); Chloride 109 mmol/L (98-107); Estimated CRCL calculation 38 ml/min; Estimated Glomerular Filt Rate 55; Glucose 116 mg/dL (65-105); Potassium 3.9 mmol/L (3.4-5.0); Sodium 142 mmol/L (137-145)
[2020-09-13 13:28] LABS: Prothrombin Time 13.4 Seconds (11.1-14.7)
[2020-09-13 13:29] LABS: Partial Thromboplastin Time 24.9 SECONDS (22.3-36.8)
[2020-09-13 13:55] LABS: Troponin I 0.014 ng/mL (0.000-0.034)
--- NOTE | 2020-09-13 14:33 | ED.FALL ---
HPI - Fall General Chief Complaint: Fall Stated Complaint: facial injury/knee injury Time Seen by Provider: 09/13/20 12:37 Source: patient, family and EMS Mode of arrival: EMS Limitations: no limitations History of Present Illness HPI Narrative: Patient is a 70-year-old female who presents for evaluation of injuries related to tripping and falling forward while ambulating just prior to arrival patient presents with skin tears and abrasions of the upper extremities and lower extremities and face patient denies loss of consciousness syncope headache lightheadedness dizziness patient on arrival to emergency department is in no distress does not wish for any kind of pain medication at this time presents with family patient notes that the fall was mechanical Related Data Home Medications Medication Instructions Recorded Confirmed albuterol sulfate 90 mcg/actuation 90 mcg INHALATION Q4H PRN 11/24/19 04/17/20 aerosol inhaler alprazolam 0.25 mg tablet 0.25 mg PO HS 11/24/19 04/17/20 ipratropium 0.5 mg-albuterol 3 mg See Rx Instructions .ROUTE .COMPLEX 11/24/19 04/17/20 (2.5 mg base)/3 mL nebulization soln ondansetron 4 mg disintegrating 4 mg PO DAILY PRN 11/24/19 04/17/20 tablet alprazolam [Xanax] 1 mg PO TID PRN 03/31/20 04/17/20 amlodipine 5 mg PO DAILY 03/31/20 04/17/20 sertraline [Zoloft] 50 mg PO DAILY 03/31/20 04/17/20 calcium carbonate-vitamin D3 1 cap PO HS 04/02/20 04/17/20 [Calcium 600 with Vitamin D3] lansoprazole 30 mg PO BID 04/02/20 04/17/20 Allergies Allergy/AdvReac Type Severity Reaction Status Date / Time codeine AdvReac Unknown Nausea and Verified 09/13/20 12:37 Vomiting propoxyphene AdvReac Unknown Nausea Verified 09/13/20 12:37 Review of Systems Review of Systems: All systems reviewed & are unremarkable except as noted in HPI and below PMFSH Past Medical History Medical History (Updated 09/13/20 @ 15:37 by Chuy Stewart PA-C) Asthma COPD (chronic obstructive pulmonary disease) Osteoarthritis of left knee Osteoporosis Surgical History Surgical History H/O Spinal surgery 5, 6, 7 = Nov 2017 Family History Family History Other Unknown family medical history Social History Social History Smoking packs per day: 10 Smoking cigarettes per day: 200.0 Years smoked: 30 Smoking pack-years: 300.00 Smoking status: Current every day smoker Tobacco type: cigarettes Alcohol intake: former Substance use: former Substance use type: does not use Additional living arrangements comments: Sister & brother in law Gender identity (if verbalized by the patient): Female Spiritual care concerns: No Exam Narrative: Exam Narrative: GENERAL: Well-appearing, well-nourished, and in no acute distress. HEAD: Normocephalic, skin abrasions of the nose upper lip and chin EYES: PERRLA and EOMI. ENT: Nares clear, no rhinorrhea or epistaxis. Mucous membranes moist. NECK: Supple. No adenopathy or masses. CHEST: Clear to auscultation. No respiratory distress. No wheezes rales or rhonchi HEART: Regular rate and rhythm. No murmur heard. Normal peripheral pulses. ABDOMEN: Soft, nontender, nondistended EXTREMITIES: Normal range of motion. No edema. Skin tear left marino as well as the left anterior knee. Skin tear to the right palm. No midline cervical thoracic or lumbar tenderness SKIN: Warm, dry, no rash. NEURO: No focal deficits. Alert and oriented x3. Neurovascularly intact. Capillary refill less than 2-second. Cranial nerves II through XII grossly intact PSYCH: Normal mood and affect. Course Course Emergency Course: Patient had repair of her wounds in the emergency department evaluated felt appropriate for discharge home patient is resting comfortably in no distress noting minimal pain hemodynamically s
== END 2020-09-13 16:01 | disposition home or self-care (01) ==
PROVIDERS: Emergency Medicine Emergency Medical Services; Emergency Provider Emergency Medicine; PCP Family Medicine
DX: S01.81XA Laceration without foreign body of other part of head, initial encounter (principal); S81.812A Laceration without foreign body, left lower leg, initial encounter; S61.411A Laceration without foreign body of right hand, initial encounter; S09.90XA Unspecified injury of head, initial encounter; J43.9 Emphysema, unspecified; F17.210 Nicotine dependence, cigarettes, uncomplicated; M81.0 Age-related osteoporosis without current pathological fracture; M17.0 Bilateral primary osteoarthritis of knee; M16.12 Unilateral primary osteoarthritis, left hip; W01.0XXA Fall on same level from slipping, tripping and stumbling without subsequent striking against object, initial encounter
CPT/HCPCS: 12011; 36415; 70450; 71045; 72125; 72170; 73562; 80048; 84484; 85025; 85610; 85730; 99284

== ENCOUNTER 2021-01-03 08:56 | Observation (INO) | payer MEDICARE, MEDICAID, SELFPAY ==
[2021-01-03] VITALS (29 sets, daily range): BP systolic 114–180; BP diastolic 67–99; PULSE 61–152; RESP 19–32; TEMP 36.4–37.2; O2SAT 90–100; BMI 19.0
--- NOTE | ~2021-01-03 | XR_ITS ---
EXAMINATION: XR chest 1V portable DATE: 01/03/2021 09:55 INDICATION: Chest pain. TECHNIQUE: A single frontal view of the chest was obtained. COMPARISON: Chest single view 09/13/2020, chest CT 03/31/2020 FINDINGS: There is stable scarring at the lung apices. There are lucencies in the upper lungs, consis tent with emphysema. There are changes of vertebroplasty at 2 levels in thoracic spine. There is roller man herb embolized bone cement in right middle lobe. No pleural effusion or pneumothorax. The heart size i s normal. There is an old healed right rib fracture. IMPRESSION: 1. Stable scarring at the lung apices. 2. Emphysema. Reviewed, dictated and finalized at location A. [facility] REPRESENTATIVE
--- NOTE | 2021-01-03 09:59 | ECG_ITS ---
Measurements Intervals [place] Rate: 71 P: 60 [place]: 139 QRS: -56 QRSD: 138 T: -1 QT: 417 QTc: 454 Interpretive Statements SINUS RHYTHM RIGHT BUNDLE BRANCH BLOCK LEFT ANTERIOR FASCICULAR BLOCK BASELINE ARTIFACT- I, III, AVL ABNORMAL ECG Electronically Signed On 01-03-2021 10:32:56 INFECTIOUS DISEASE PHYSICIAN by Gerson Zazueta D.O.
[2021-01-03 10:22] LABS: Basophils Absolute Auto 0.1 K/mm3 (0.0-0.1); Basophils Percent Auto 0.5 % (0.2-1.2); Eosinophils Absolute Auto 0.1 K/mm3 (0-0.3); Eosinophils Percent Auto 0.7 % (0-4.4); Hematocrit 36.9 % (37.0-47.0); Hemoglobin 11.9 g/dL (12.0-15.0); Immature Granulocyte Absolute 0.58 K/mm3 (0.00-0.031); Immature Granulocyte Percent A 4.4 % (0-0.5); Immature Platelet Fraction Pct 2.6 % (0.9-11.2); Lymphocytes Percent Auto 9.8 % (18.3-44.2); Mean Corpuscular HGB Conc 32.2 g/dl (32-36); Mean Corpuscular Volume 92.9 fl (80-100); Mean Platelet Volume 10.2 fl (7.4-10.4); Monocytes Percent Auto 7.8 % (2.6-8.5); Neutrophils Absolute Auto 10.2 K/mm3 (1.3-6.7); Neutrophils Percent Auto 76.8 % (45.5-73.1); Platelet Count Result 134 k/mm3 (150-375); Red Blood Count 3.97 M/mm3 (4.2-5.4); Red Cell Distribution Width 16.2 % (11.5-14.5); White Blood Count 13.3 K/mm3 (4.5-10.0)
[2021-01-03 10:32] LABS: INR 0.9; Prothrombin Time 13.1 Seconds (11.1-14.7)
[2021-01-03 10:33] LABS: Partial Thromboplastin Time 20.8 SECONDS (22.3-36.8)
[2021-01-03 10:35] LABS: Alanine Aminotransferase 19 U/L (4-35); Albumin Level 3.3 g/dL (3.5-5.1); Alkaline Phosphatase 66 U/L (38-126); Anion Gap 5 mmol/L (8-16); Aspartate Amino Transferase 20 U/L (14-36); Bilirubin,Total 0.5 mg/dL (0.2-1.3); Blood Urea Nitrogen 22 mg/dL (7-17); Calcium 8.3 mg/dL (8.4-10.2); Carbon Dioxide 25 mmol/L (22-30); Chloride 107 mmol/L (98-107); Estimated CRCL calculation 54 ml/min; Estimated Glomerular Filt Rate > 60; Glucose 96 mg/dL (65-105); Magnesium 1.8 mg/dL (1.6-2.3); Potassium 3.4 mmol/L (3.4-5.0); Sodium 137 mmol/L (137-145)
[2021-01-03] MEDS: IPRATROPIUM BR 0.02% INH SOLN 0.5 MG/2.5 ML VIAL INHALATION (10:40)
[2021-01-03 10:47] LABS: Troponin I 0.368 ng/mL (0.000-0.034)
[2021-01-03] MEDS: SODIUM CHLORIDE 0.9% IV 500 ML 999 ML IV CONT (10:55)
[2021-01-03] MEDS: ASPIRIN 81 MG CHEWABLE TABLET 324 MG PO (10:55)
[2021-01-03 11:17] LABS: Add Urine Microscopic? NO; Appearance Urine Clear (Clear); Bilirubin Urine Negative (Negative); Blood Urine Negative (Negative); Color Urine Straw (Yellow); Glucose Urine UA Negative (Negative); Ketones Urine Negative (Negative); Leukocyte Esterase Ur Negative LEU/UL (Negative); Mucus Urine Rare /lpf; Nitrate Urine Negative (Negative); Protein Urine Negative (Negative); RBC Urine 0-2 /hpf (0-2); Specific Grav Ur 1.012 (1.001-1.035); Squamous Epithelial Cell Urine Rare /hpf (Few); Urobilinogen Urine Negative mg/dL (<2.0); WBC Urine 0-3 /hpf
[2021-01-03] MEDS: HEPARIN SODIUM 5,000 UNITS/ML VIAL 2500 UNITS IV PUSH (11:53)
[2021-01-03] MEDS: HEPARIN SOD/D5W 100 UNITS/ML 25,000 UNITS/250 ML BAG IV CONT (12:33)
--- NOTE | 2021-01-03 13:48 | ED.CHESTPAIN ---
HPI - Chest Pain General Chief Complaint: Chest Pain <Chuy Stewart PA-C - Last Filed: 01/03/21 20:24> Stated Complaint: I feel like I'm having a heart attack/stroke <JORGE Olea Last Filed: 01/03/21 20:24> Time Seen by Provider: 01/03/21 09:05 <JORGE Olea Last Filed: 01/03/21 20:24> Source: patient <JORGE Olea Last Filed: 01/03/21 20:24> Mode of arrival: ambulatory <JORGE Olea Last Filed: 01/03/21 20:24> Limitations: no limitations <JORGE Olea Last Filed: 01/03/21 20:24> History of Present Illness HPI narrative: Patient is 70-year-old female who presents for evaluation of left-sided chest pain left arm pain and nausea that was self-limited and occurred this morning upon waking patient was brought private vehicle to emergency department by her daughter for evaluation of this on arrival to emergency department the patient's symptoms have resolved patient notes that she had recent evaluation and admission to the ICU at [facility] for SVT was hospitalized for several days and then discharged home. Patient with history of coronary artery disease SVT COPD and tobacco abuse. Patient is followed by Dr. Delgado at [facility] for cardiology where the majority of her doctors are located. Patient resting comfortably in the room in no distress upon arrival patient denies other complaints or illness or injury or trauma <JORGE Olea Last Filed: 01/03/21 20:24> Related Data Home Medications: Home Medications Medication Instructions Recorded Confirmed albuterol sulfate 90 mcg/actuation 2 puff INHALATION Q4H PRN 11/24/19 01/03/21 aerosol inhaler alprazolam 0.25 mg tablet 0.5 mg PO TID PRN 11/24/19 01/03/21 ipratropium 0.5 mg-albuterol 3 mg 3 ml INHALATION Q4H 11/24/19 01/03/21 (2.5 mg base)/3 mL nebulization soln ondansetron 4 mg disintegrating 4 mg PO Q8H PRN 11/24/19 01/03/21 tablet calcium carbonate-vitamin D3 1 cap PO HS 04/02/20 01/03/21 [Calcium 600 with Vitamin D3] amlodipine 2.5 mg PO DAILY 01/03/21 01/03/21 denosumab [Prolia] 60 mg SUBCUT Q6M 01/03/21 01/03/21 furosemide 20 mg PO BID 01/03/21 01/03/21 lansoprazole 15 mg PO BID 01/03/21 01/03/21 meclizine 6.25 mg PO TID PRN 01/03/21 01/03/21 metoprolol succinate 50 mg PO Q12H 01/03/21 01/03/21 potassium chloride 10 meq PO DAILY 01/03/21 01/03/21 prednisone 10 mg PO DIRECTED 01/03/21 01/03/21 rosuvastatin 2.5 mg PO DAILY 01/03/21 01/03/21 sertraline 25 mg PO BID 01/03/21 01/03/21 <Chuy Stewart PA-C - Last Filed: 01/03/21 20:24> Allergies/Adverse Reactions: Allergies Allergy/AdvReac Type Severity Reaction Status Date / Time codeine AdvReac Unknown Nausea and Verified 01/03/21 22:16 Vomiting propoxyphene AdvReac Unknown Nausea Verified 01/03/21 22:16 <Chuy Stewart PA-C - Last Filed: 01/03/21 20:24> Review of Systems Review of Systems: All systems reviewed & are unremarkable except as noted in HPI and below <JORGE Olea Last Filed: 01/03/21 20:24> [facility] Past Medical History Medical History: Medical History Asthma COPD (chronic obstructive pulmonary disease) Coronary artery disease Osteoarthritis of left knee Osteoporosis <JORGE Olea Last Filed: 01/03/21 20:24> Surgical History Surgical History: Surgical History H/O Spinal surgery 5, 6, 7 = Nov 2017 <Chuy Stewart PA-C - Last Filed: 01/03/21 20:24> Family History Family History: Family History Other Unknown family medical history <Chuy Stewart PA-C - Last Filed: 01/03/21 20:24> Social History Social History: Social History Smoking packs per day: 0.5 [place]
--- NOTE | 2021-01-03 14:15 | PC.NURSE ---
Went in to draw patients blood, Pt refusing at this time.
--- NOTE | 2021-01-03 14:16 | PC.NURSE ---
Amol speaking with patient at this time
[2021-01-03] MEDS: LORazepam INJ (*CRX) 2 MG/ML VIAL 1 MG IV PUSH ×2 (14:45→20:56)
--- NOTE | 2021-01-03 15:49 | PC.NURSE ---
checked status of bed status [facility] at this time will call upon receiving
--- NOTE | 2021-01-03 19:30 | PC.NURSE ---
[facility] CALLED TO UPDATE US. THEY WILL NOT HAVE A BED UNTIL TOMORROW. WILL CALL BACK IN THE MORNING WHEN THEY HAVE A BED OPEN.
--- NOTE | 2021-01-03 20:35 | PM.IMHP ---
H&P: HPI History of Present Illness Date/Time: 01/03/21 20:35 Chief Complaint: Left sided chest and arm pain this morning++ Narrative: This is a 70 year old female with known COPD who was recently admitted to [facility] for SVT and today woke up with severe left arm and left chest pain. Associated symptoms included shortness of breath although she denies any worsening cough, fever, nausea, vomiting, chills, or diaphoresis. The patient was evaluated in the ER and found to be having an NSTEMI with elevated troponin of 7.690. She states that she just had a vascular procedure done at [facility] but she can't tell me the name of it. She also believes that she recently had a cardiac angiogram at [facility] but doesn't know the results or exactly what was done. She denies any previous coronary artery disease history. She continues to smoke cigarettes. The patient has been very anxious in the ER today because she has been accepted for transfer to [facility] where all her doctors are but at this time they do not have a bed available. She verbalizes to me that This is a nightmare, I should never have come here . She has been in the ER now for almost 11 hours and has been treated with various doses of ativan IV in the ER. Cardiology has been consulted by ER provider. Currently she denies any chest pain and is just upset that she has to wait to be transferred. The patient has been treated with Xopenex, Aspirin, and anticoagulated with heparin IV. Review of Systems Review of Systems: All systems reviewed & are unremarkable except as noted in HPI and below PMFSH Past Medical History Medical History Asthma COPD (chronic obstructive pulmonary disease) Coronary artery disease Osteoarthritis of left knee Osteoporosis Surgical History Surgical History H/O Spinal surgery 5, 6, 7 = Nov 2017 Family History Family History Other Unknown family medical history Social History Social History Smoking packs per day: 10 Smoking cigarettes per day: 200.0 Years smoked: 30 Smoking pack-years: 300.00 Smoking status: Current every day smoker Tobacco type: cigarettes Alcohol intake: former Substance use: former Substance use type: does not use Additional living arrangements comments: Sister & brother in law Gender identity (if verbalized by the patient): Female Spiritual care concerns: No Meds Home Medications and Allergies Home Medications Medication Instructions Recorded Confirmed Type albuterol sulfate 90 mcg/actuation 90 mcg INHALATION Q4H PRN 11/24/19 04/17/20 History aerosol inhaler alprazolam 0.25 mg tablet 0.5 mg PO HS 11/24/19 04/17/20 History ipratropium 0.5 mg-albuterol 3 mg See Rx Instructions .ROUTE .COMPLEX 11/24/19 04/17/20 History (2.5 mg base)/3 mL nebulization soln ondansetron 4 mg disintegrating 4 mg PO DAILY PRN 11/24/19 04/17/20 History tablet amlodipine 5 mg PO DAILY 03/31/20 04/17/20 History sertraline [Zoloft] 50 mg PO DAILY 03/31/20 04/17/20 History budesonide-formoterol [Symbicort] 2 puff INHALATION Q12HRT 30 Days 04/02/20 04/17/20 Rx #10.2 gm calcium carbonate-vitamin D3 1 cap PO HS 04/02/20 04/17/20 History [Calcium 600 with Vitamin D3] lansoprazole 30 mg PO BID 04/02/20 04/17/20 History metoprolol tartrate 25 mg PO Q12HR 30 Days #60 tablet 04/02/20 04/17/20 Rx prednisone 10 mg PO DIRECTED #30 tablet 04/02/20 04/17/20 Rx furosemide 01/03/21 History meclizine mg 01/03/21 History potassium chloride meq PO 01/03/21 History rosuvastatin mg 01/03/21 History Allergies Allergy/AdvReac Type Severity Reaction Status Date / Time codeine AdvReac Unknown Nausea and Verified 01/03/21 10:08 Vomiting propoxyphene AdvReac Unkn
[2021-01-03 20:55] LABS: Partial Thromboplastin Time 29.9 SECONDS (22.3-36.8)
[2021-01-03 20:57] LABS: Cholesterol 196 mg/dL (0-200); HDL Direct 72 mg/dL; Triglycerides 139 mg/dL (<150)
[2021-01-03 21:08] LABS: LDL Cholesterol Direct 96 mg/dL
[2021-01-03 22:20] LABS: Partial Thromboplastin Time 28.3 SECONDS (22.3-36.8)
--- NOTE | 2021-01-03 22:33 | ADMGEN ---
This patient, Marcella Hernández, was admitted on 01/03/21 at 2142 to IMU Room 204-01. Patient/family oriented to hospital policies and general routines including ID bracelet, bed and alarms, visiting hours, pain management, procedures, bathroom and other care routines, personal items, smoking policy, room service/diet, and visiting hours. Information on how to activate the Rapid Response Team has been discussed. Patient/Family are encouraged to report perceived risks to care and to ask questions if they do not understand what they are told or what they should do.
[2021-01-03] MEDS: HEPARIN SODIUM 5,000 UNITS/ML VIAL 3500 UNITS IV PUSH (23:22)
--- NOTE | 2021-01-03 23:26 | ECG_ITS ---
Measurements Intervals [place] Rate: 90 P: 64 MT: 134 QRS: -63 QRSD: 134 T: 0 QT: 369 QTc: 452 Interpretive Statements SINUS RHYTHM ATRIAL PREMATURE COMPLEXES RIGHT BUNDLE BRANCH BLOCK LEFT ANTERIOR FASCICULAR BLOCK BASELINE ARTIFACT- II, III, V4-V6 ABNORMAL ECG Electronically Signed On 01-04-2021 7:05:22 MAINTENANCE MANAGER by Gerson Zazueta D.O.
[2021-01-04] VITALS (31 sets, daily range): BP systolic 91–140; BP diastolic 60–93; PULSE 69–146; RESP 16–25; TEMP 36.1–36.9; O2SAT 93–98; BMI 19.0
[2021-01-04] MEDS: LORazepam INJ (*CRX) 2 MG/ML VIAL 1 MG IV PUSH (03:10)
[2021-01-04 06:24] LABS: Basophils Absolute Auto 0.1 K/mm3 (0.0-0.1); Basophils Percent Auto 0.4 % (0.2-1.2); Eosinophils Absolute Auto 0.1 K/mm3 (0-0.3); Eosinophils Percent Auto 0.5 % (0-4.4); Hematocrit 40.1 % (37.0-47.0); Hemoglobin 13.1 g/dL (12.0-15.0); Immature Granulocyte Absolute 0.47 K/mm3 (0.00-0.031); Immature Granulocyte Percent A 3.4 % (0-0.5); Lymphocytes Absolute Auto 1.24 K/mm3 (0.9-3.2); Mean Corpuscular HGB Conc 32.7 g/dl (32-36); Mean Corpuscular Hemoglobin 29.8 pg (26-34); Mean Corpuscular Volume 91.1 fl (80-100); Mean Platelet Volume 9.9 fl (7.4-10.4); Monocytes Absolute Auto 0.9 K/mm3 (0.1-0.6); Monocytes Percent Auto 6.8 % (2.6-8.5); Neutrophils Percent Auto 79.9 % (45.5-73.1); Nucleated Red Blood Cells Perc 0.1 % (0.0-0.2); Platelet Count Result 140 k/mm3 (150-375); Red Cell Distribution Width 16.4 % (11.5-14.5); White Blood Count 13.8 K/mm3 (4.5-10.0)
[2021-01-04] MEDS: METOPROLOL SUCCINATE EXT REL 50 MG TABCR PO ×2 (06:32→20:38)
[2021-01-04 06:39] LABS: Partial Thromboplastin Time 55.7 SECONDS (22.3-36.8)
[2021-01-04 06:47] LABS: Anion Gap 3 mmol/L (8-16); Blood Urea Nitrogen 15 mg/dL (7-17); Calcium 8.1 mg/dL (8.4-10.2); Carbon Dioxide 25 mmol/L (22-30); Chloride 106 mmol/L (98-107); Estimated CRCL calculation 49 ml/min; Estimated Glomerular Filt Rate > 60; Glucose 110 mg/dL (65-105); Magnesium 1.7 mg/dL (1.6-2.3); Potassium 3.6 mmol/L (3.4-5.0); Sodium 134 mmol/L (137-145)
[2021-01-04] MEDS: ALPRAZolam (*CRX) 0.5 MG TABLET PO ×2 (08:04→20:40)
[2021-01-04] MEDS: HEPARIN SODIUM 5,000 UNITS/ML VIAL 2000 UNITS IV PUSH (08:04)
--- NOTE | 2021-01-04 08:09 | PM.CNCAR ---
Assessment and Plan Assessment and plan (1) Hyperlipidemia: Qualifiers: Hyperlipidemia type: unspecified Qualified Code(s): E78.5 - Hyperlipidemia, unspecified Code(s): E78.5 - Hyperlipidemia, unspecified Status: Chronic (2) COPD (chronic obstructive pulmonary disease): Qualifiers: COPD type: unspecified COPD Qualified Code(s): J44.9 - Chronic obstructive pulmonary disease, unspecified Code(s): J44.9 - Chronic obstructive pulmonary disease, unspecified Status: Chronic (3) SVT (supraventricular tachycardia): Code(s): I47.1 - Supraventricular tachycardia Status: Acute Assessment and Plan: she was seen and evaluated by Dr. Jordan Blake at [facility], had ablation twice, but now she has recurrence, continue with metoprolol, will consider adding amiodarone (4) Acute respiratory failure: Qualifiers: Respiratory failure complication: hypoxia Qualified Code(s): J96.01 - Acute respiratory failure with hypoxia Code(s): J96.00 - Acute respiratory failure, unspecified whether with hypoxia or hypercapnia Status: Acute (5) Hypoxia: Code(s): R09.02 - Hypoxemia Status: Acute (6) CHF with unknown LVEF: Code(s): I50.9 - Heart failure, unspecified Status: Acute Assessment and Plan: with known severe left ventricular systolic dysfunction, will repeat her echo to evaluate current status (7) Acute non-ST elevation myocardial infarction (NSTEMI): Code(s): I21.4 - Non-ST elevation (NSTEMI) myocardial infarction Status: Acute Assessment and Plan: continue with aspirin heparin, if she gets transferred to [facility] then she will proceed with cardiac catheterization there if she stays here will proceed with cardiac catheterization here with possible intervention as indicated History of Present Illness History of Present Illness Consult date/time: 01/04/21 08:09 70 years old lady with history of known coronary disease known cardiomyopathy, was admitted to the hospital because of history of fall and weakness, noted to have significant shortness of breath and had episode of nausea this morning. I was asked see because of worsening shortness of breath, and episode of significant nausea and then elevated troponin. Apparently she sees stone layout marker at [facility] she had cardiac catheterization a few months ago revealing obtuse marginal disease but it was thought to be too small for intervention, treated medically, at that time also noted to have left ventricular systolic dysfunction treated medically. She has not very good historian and she has significant anxiety and she is very nervous now at this time, her nausea improved lately but her troponin is significantly elevated now. No active chest pain, no orthopnea no leg swelling she has some cough with no sputum production. As she was supposed to be transferred to [facility] but they still do not have beds. Currently she is on heparin and aspirin, and she is more comfortable as far as shortness of breath and cough but she still has some anxiety. I spent some time discussing the findings with her as well as her family at the bedside. She seems to be able to understand and willing to go further for her treatment Reason For Visit: non stemi, copd exacerbation Review of Systems Review of Systems: Narrative: major anxiety nervousness, she is malnutrition, with significant ecchymosis noted all over Cardiovascular: Cardiovascular: Reports as per HPI Respiratory: Respiratory: Reports as per HPI Gastrointestinal: Gastrointestinal: Reports as per HPI [facility] Past Medical History Medical History Asthma COPD (chronic obstructive pulmonary disease) Coronary artery disease Osteoarthritis of left knee Osteoporosis Surgical History Surgical History H
[2021-01-04] MEDS: predniSONE 10 MG TABLET PO (08:13)
[2021-01-04] MEDS: PANTOPRAZOLE 40 MG TABLET PO (08:14)
[2021-01-04] MEDS: SERTRALINE HCL 25 MG TABLET PO ×2 (08:14→18:53)
[2021-01-04] MEDS: amLODIPine BESYLATE 2.5 MG TABLET PO (08:14)
[2021-01-04] MEDS: lisinopriL 10 MG TABLET PO (08:14)
[2021-01-04] MEDS: ASPIRIN 81 MG CHEWABLE TABLET PO (08:14)
[2021-01-04] MEDS: FUROSEMIDE 20 MG TABLET PO (08:14)
--- NOTE | 2021-01-04 11:20 | PM.IMPN ---
Progress Note: A&P Assessment and Plan (1) Acute non-ST elevation myocardial infarction (NSTEMI): Code(s): I21.4 - Non-ST elevation (NSTEMI) myocardial infarction Status: Acute Assessment and Plan: Patient presents with left chest pain to left arm that is now resolved. Troponins 0.368 -> 6.51 -> 7.69 -> 12.5. ED has initiated transfer to [place] where she gets much of her care including her supervisor building maintenance Dr Deglado. We are awaiting bed availability for transfer to [facility] today. Dr Ocasio consulted. If still awaiting transfer into this afternoon he may perform cath here. She remains on heparin gtt. Continue to monitor with cardiac telemetry, monitor for chest pain while awaiting transfer. She has intermittent SVT which cardiology is aware of. (2) Leukocytosis: Qualifiers: Leukocytosis type: unspecified Qualified Code(s): D72.829 - Elevated white blood cell count, unspecified Code(s): D72.829 - Elevated white blood cell count, unspecified Status: Acute Assessment and Plan: WBC 13,800. Afebrile. Suspect may be reactive secondary to above. UA is negative. CXR with emphysema without acute process. No infectious process is suspected at present. Monitor CBC. (3) Anxiety: Code(s): F41.9 - Anxiety disorder, unspecified Status: Acute Assessment and Plan: Requiring multiple doses of ativan in ED. Continue her home Zoloft. Monitor. (4) COPD (chronic obstructive pulmonary disease): Qualifiers: COPD type: unspecified COPD Qualified Code(s): J44.9 - Chronic obstructive pulmonary disease, unspecified Code(s): J44.9 - Chronic obstructive pulmonary disease, unspecified Status: Chronic Assessment and Plan: Continue Xopenex nebs, home symbicort, finishing the end of a prednisone taper started by her digital director 12/28/20. (5) Hyperlipidemia: Qualifiers: Hyperlipidemia type: unspecified Qualified Code(s): E78.5 - Hyperlipidemia, unspecified Code(s): E78.5 - Hyperlipidemia, unspecified Status: Chronic Assessment and Plan: Continue home statin therapy. (6) Hypertension: Qualifiers: Hypertension type: essential hypertension Qualified Code(s): I10 - Essential (primary) hypertension Code(s): I10 - Essential (primary) hypertension Status: Chronic Assessment and Plan: BPs were variable yesterday, appear more stable this morning last 122/77. Continue home Norvasc, lisinopril, metoprolol. Monitor BP and adjust treatment as needed. (7) Tobacco dependence: Code(s): F17.200 - Nicotine dependence, unspecified, uncomplicated Status: Chronic Assessment and Plan: Educated on smoking cessation. She verbalized her understanding. Subjective Date/time seen: 01/04/21 1030 Interval history: Ms. Hernández is a 70yo F admitted for NSTEMI. Her supervisor building maintenance is Dr Delgado at [facility] and in fact it is documented that she was recently hospitalized at [facility] in the ICU due to SVT. She is to be transferred to [facility] today. She is upset that there is still no bed available. She does not wish to answer many of my questions however tells me she is not having chest pain at present. Tells me her breathing is fine . Review of Systems Review of Systems: ROS unobtainable: Yes other (Limited given her decreased cooperation) Exam Narrative: Exam Narrative: General: Thin female resting supine in bed in no acute distress. Anxious but stable. HEENT: Normocephalic, EOMI, oral mucosa moist. Cardiovascular: Rate and rhythm are regular at my encounter. Telemetry review shows in
[2021-01-04] MEDS: ROSUVASTATIN 2.5 MG TABLET PO (11:38)
--- NOTE | 2021-01-04 13:15 | PCNSR ---
On 01/04/21, the student, Tiffanie Lo, provided care and completed [facility] documentation on this patient. I have reviewed the student's documentation and agree with the findings.
[2021-01-04 15:37] LABS: Partial Thromboplastin Time 64.6 SECONDS (22.3-36.8)
--- NOTE | 2021-01-04 15:38 | WPDMODSED ---
Moderate Sedation Note-Pt Data Patient Data Allergies Allergy/AdvReac Type Severity Reaction Status Date / Time codeine AdvReac Unknown Nausea and Verified 01/03/21 22:16 Vomiting propoxyphene AdvReac Unknown Nausea Verified 01/03/21 22:16 Home Medications Medication Instructions Recorded Confirmed Type albuterol sulfate 90 mcg/actuation 2 puff INHALATION Q4H PRN 11/24/19 01/03/21 History aerosol inhaler alprazolam 0.25 mg tablet 0.5 mg PO TID PRN 11/24/19 01/03/21 History ipratropium 0.5 mg-albuterol 3 mg 3 ml INHALATION Q4H 11/24/19 01/03/21 History (2.5 mg base)/3 mL nebulization soln ondansetron 4 mg disintegrating 4 mg PO Q8H PRN 11/24/19 01/03/21 History tablet budesonide-formoterol [Symbicort] 2 puff INHALATION Q12HRT 30 Days 04/02/20 01/03/21 Rx #10.2 gm calcium carbonate-vitamin D3 1 cap PO HS 04/02/20 01/03/21 History [Calcium 600 with Vitamin D3] amlodipine 2.5 mg PO DAILY 01/03/21 01/03/21 History denosumab [Prolia] 60 mg SUBCUT Q6M 01/03/21 01/03/21 History furosemide 20 mg PO BID 01/03/21 01/03/21 History lansoprazole 15 mg PO BID 01/03/21 01/03/21 History meclizine 6.25 mg PO TID PRN 01/03/21 01/03/21 History metoprolol succinate 50 mg PO Q12H 01/03/21 01/03/21 History potassium chloride 10 meq PO DAILY 01/03/21 01/03/21 History prednisone 10 mg PO DIRECTED 01/03/21 01/03/21 History rosuvastatin 2.5 mg PO DAILY 01/03/21 01/03/21 History sertraline 25 mg PO BID 01/03/21 01/03/21 History Current Medications: Active Medications Acetaminophen (Acetaminophen 325 Mg Tablet) 650 mg PO Q4H PRN PRN Reason: Mild Pain (1-3) Alprazolam (Alprazolam (*Crx) 0.5 Mg Tablet) 0.5 mg PO TID PRN PRN Reason: Anxiety Last Admin: 01/04/21 08:04 Dose: 0.5 mg Documented by: Amlodipine Besylate (Amlodipine Besylate 2.5 Mg Tablet) 2.5 mg PO DAILY [facility] Last Admin: 01/04/21 08:14 Dose: 2.5 mg Documented by: Aspirin (Aspirin 81 Mg Chewable Tablet) 81 mg PO DAILY@0800 [facility] Last Admin: 01/04/21 08:14 Dose: 81 mg Documented by: Budesonide/Formoterol Fumarate (Budesonide/Form 160-4.5 Mcg (*Sp)) 2 puff INHALATION Q12HRT [facility] Last Admin: 01/04/21 07:21 Dose: 2 puff Documented by: Calcium Carbonate (Calcium/Vitamin D 500 Mg Tablet) 500 mg PO [facility] Furosemide (Furosemide 20 Mg Tablet) 20 mg PO BID [facility] Last Admin: 01/04/21 08:14 Dose: 20 mg Documented by: Heparin Sodium (Porcine) (Heparin Sodium 5,000 Units/Ml Vial) 3,500 units IV PUSH PRN PRN PRN Reason: aPTT less than 55 seconds Last Admin: 01/03/21 23:22 Dose: 3,500 units Documented by: Heparin Sodium (Porcine) (Heparin Sodium 5,000 Units/Ml Vial) 2,000 units IV PUSH PRN PRN PRN Reason: aPTT 55 - 70 seconds Last Admin: 01/04/21 08:04 Dose: 2,000 units Documented by: Heparin Sodium/Dextrose (Heparin Sodium/D5w 100 Units/Ml) 25,000 units in 250 mls @ 8 mls/hr IV CONT .Q24H [facility]; Protocol Last Titration: 01/04/21 08:05 Dose: 800 units/hr, 8 mls/hr Documented by: Levalbuterol HCl (Levalbuterol Neb 1.25 Mg/0.5 Ml) 1.25 mg INHALATION Q6HRT [facility] Last Admin: 01/04/21 13:05 Dose: 1.25 mg Documented by: Lisinopril (Lisinopril 10 Mg Tablet) 10 mg PO DAILY [facility] Last Admin: 01/04/21 08:14 Dose: 10 mg Documented by: Lorazepam (Lorazepam Inj (*Crx) 2 Mg/Ml Vial) 1 mg IV PUSH Q6H PRN PRN Reason: Anxiety Last Admin: 01/04/21 03:10 Dose: 1 mg Documented by: Metoprolol Succinate (Metoprolol Succinate Ext Rel 50 Mg Tabcr) 50 mg PO Q12HR [facility] Last Admin: 01/04/21 06:32 Dose: 50 mg Documented by: Ondansetron HCl (Ondansetron Inj 4 Mg/2 Ml Vial) 4 mg IV PUSH Q6H PRN PRN Reason: Nausea And Vomiting Pantoprazole Sodium (Pantoprazole 40 Mg Tablet) 40 mg PO QAM [facility] Last Admin: 01/04/21 08:14 Dose: 40 mg Documented by: Prednisone (Prednisone 10 Mg Tablet) 10 mg PO DAILY@0800 [facility] Stop: 01/05/21 08:01 Last Admin: 01/04/21 08:13 Dose: 10 mg Documented by: Rosuvastatin Calcium (Rosuvastatin 2.5 Mg Tablet) 2.5 mg PO DAILY
--- NOTE | 2021-01-04 17:02 | WPDCARDPROC ---
Cardiac Cath Procedure Note Date of procedure:: 01/04/21 Performing physician:: aRmsey Ocasio MD Procedure: 1. Left heart catheterization, selective coronary angiogram. 2. Left ventricular angiogram. 3. Conscious sedation. 4. Angio-Seal device for arterial hemostasis Cable Machine Operator: Dr. Ramsey Ocasio Complications: None. Sedation: Conscious sedation, local anesthesia, using 1% lidocaine for local anesthesia. starting time is 4:40 need p.m. ending time is 4:50 p.m. History: Technique: After informed consent was obtained from patient, was brought to the civil laboratory technician, put in the civil laboratory technician table, prepped and draped in usual sterile fashion. Five Lebanese sheath was inserted into the right common femoral artery, through the sheath 5 Lebanese JL4 catheter inserted, advanced to the left coronary artery, left coronary artery angiogram was obtained. The catheter was exchanged over guidewire into a 5 Lebanese JR4 catheter, advanced to the right coronary artery, right coronary artery angiogram was obtained. The catheter then was exchanged over guidewire into this 5 Lebanese pigtail catheter, advanced to left ventricle, left ventricular angiogram was obtained. The catheter then was pulled, the sheath was pulled applying Angio-Seal device for arterial hemostasis. Patient tolerated the procedure no complication, taken from the civil laboratory technician to his room in stable condition stable vital signs. Hemodynamics: aortic pressure 98/60 . LV pressure 94/04 with LVEDP of 12 mmHg Angiographic findings: Left main: Medium size artery no significant disease or stenosis. Lad medium size artery showed distal LAD 75% tubular lesion but is very distal at the vessel level, at the apex Left circumflex artery, medium size artery, no significant disease or stenosis. There is 1 small obtuse marginal that has total occlusion with stuttering flow but seems to be smaller vessel RCA: Dominant vessel, showed mid RCA significant irregularity with a 40-50% disease. LV: Normal size left ventricle with normal left ventricular systolic function. Summary: Mild coronary artery disease, normal left ventricular systolic function. Recommendation: Maximum medical treatment. Risk factor modification
[2021-01-04] MEDS: SODIUM CHLORIDE 0.9% IV 1,000 ML 125 ML IV CONT (18:53)
[2021-01-04] MEDS: TICAGRELOR 90 MG TABLET 180 MG PO (21:16)
[2021-01-05] VITALS (14 sets, daily range): BP systolic 115–132; BP diastolic 72–75; PULSE 68–91; RESP 12–26; TEMP 36.3–36.4; O2SAT 96–99
[2021-01-05] MEDS: LORazepam INJ (*CRX) 2 MG/ML VIAL 1 MG IV PUSH ×2 (00:23→08:31)
[2021-01-05 05:18] LABS: Basophils Percent Auto 0.2 % (0.2-1.2); Eosinophils Percent Auto 0.2 % (0-4.4); Hemoglobin 11.6 g/dL (12.0-15.0); Immature Granulocyte Percent A 2.9 % (0-0.5); Lymphocytes Absolute Auto 0.63 K/mm3 (0.9-3.2); Lymphocytes Percent Auto 4.6 % (18.3-44.2); Mean Corpuscular HGB Conc 33.1 g/dl (32-36); Mean Corpuscular Hemoglobin 30.7 pg (26-34); Mean Corpuscular Volume 92.6 fl (80-100); Mean Platelet Volume 10.2 fl (7.4-10.4); Monocytes Percent Auto 7.5 % (2.6-8.5); Neutrophils Absolute Auto 11.5 K/mm3 (1.3-6.7); Neutrophils Percent Auto 84.6 % (45.5-73.1); Platelet Count Result 114 k/mm3 (150-375); Red Blood Count 3.78 M/mm3 (4.2-5.4); Red Cell Distribution Width 16.7 % (11.5-14.5); White Blood Count 13.6 K/mm3 (4.5-10.0)
[2021-01-05 05:31] LABS: Anion Gap 4 mmol/L (8-16); Blood Urea Nitrogen 20 mg/dL (7-17); Calcium 8.1 mg/dL (8.4-10.2); Carbon Dioxide 22 mmol/L (22-30); Chloride 109 mmol/L (98-107); Estimated CRCL calculation 56 ml/min; Estimated Glomerular Filt Rate > 60; Glucose 82 mg/dL (65-105); Magnesium 1.7 mg/dL (1.6-2.3); Potassium 3.1 mmol/L (3.4-5.0); Sodium 135 mmol/L (137-145)
[2021-01-05] MEDS: ONDANSETRON INJ 4 MG/2 ML VIAL IV PUSH (06:29)
[2021-01-05] MEDS: ALPRAZolam (*CRX) 0.5 MG TABLET PO (06:29)
[2021-01-05] MEDS: METOPROLOL SUCCINATE EXT REL 50 MG TABCR PO (08:30)
[2021-01-05] MEDS: MAGNESIUM SULF 2 GM/WATER 50ML 2 GM/50 ML BAG IVPB (08:30)
[2021-01-05] MEDS: predniSONE 10 MG TABLET PO (08:30)
[2021-01-05] MEDS: ASPIRIN 81 MG CHEWABLE TABLET PO (08:30)
[2021-01-05] MEDS: POTASSIUM CHLORIDE 20 MEQ TABLET 40 MEQ PO (08:30)
[2021-01-05] MEDS: SERTRALINE HCL 25 MG TABLET PO (08:31)
[2021-01-05] MEDS: PANTOPRAZOLE 40 MG TABLET PO (08:31)
[2021-01-05] MEDS: ROSUVASTATIN 2.5 MG TABLET PO (08:31)
--- NOTE | 2021-01-05 10:19 | P.PNIM_ITS ---
Progress Note: A&P Assessment and Plan (1) Acute non-ST elevation myocardial infarction (NSTEMI): Code(s): I21.4 - Non-ST elevation (NSTEMI) myocardial infarction Status: Acute Assessment and Plan: * Patient presents with left chest pain to left arm that is now resolved with no further recurrence. * Troponins 0.368 -> 6.51 -> 7.69 -> 12.5. ED had initiated transfer to [place] where she gets much of her care including her credit operations processor Dr Delgado however there was still no bed available late yesterday thus cath was performed here. * Dr Ocasio consulted. She was treated with heparin gtt initially now s/p C yesterday. * Cath 01/04/[address] Ocasio showed distal LAD 75% tubular lesion distal; one small obtuse marginal with total occlusion; RCA with 40-50% disease. Further management per Dr Ocasio - appreciate input. * Continue to monitor with cardiac telemetry, monitor for chest pain. (2) Leukocytosis: Qualifiers: Leukocytosis type: unspecified Qualified Code(s): D72.829 - Elevated white blood cell count, unspecified Code(s): D72.829 - Elevated white blood cell count, unspecified Status: Acute Assessment and Plan: * WBC 13,600. Afebrile. Suspect may be reactive secondary to above. She has also been on steroids by her pulley mortiser operator which can be contributing. UA is neg ative. CXR with emphysema without acute process. No infectious process is suspected at present. Monitor CBC. (3) Anxiety: Code(s): F41.9 - Anxiety disorder, unspecified Status: Acute Assessment and Plan: * Continue Ativan PRN. Continue her home Zoloft. Monitor. (4) COPD (chronic obstructive pulmonary disease): Qualifiers: COPD type: unspecified COPD Qualified Code(s): J44.9 - Chronic obstructive pulmonary disease, unspecified Code(s): J44.9 - Chronic obstructive pulmonary disease, unspecified Status: Chronic Assessment and Plan: * Continue Xopenex nebs, home Symbicort, finishing the end of a prednisone taper started by her pulley mortiser operator 12/28/20 but will increase prednisone back up to 50mg daily for now given her significant wheezing this morning. (5) Hyperlipidemia: Qualifiers: Hyperlipidemia type: unspecified Qualified Code(s): E78.5 - Hyperlipidemia, unspecified Code(s): E78.5 - Hyperlipidemia, unspecified Status: Chronic Assessment and Plan: * Continue home statin therapy. (6) Hypertension: Qualifiers: Hypertension type: essential hypertension Qualified Code(s): I10 - Essential (primary) hypertension Code(s): I10 - Essential (primary) hypertension Status: Chronic Assessment and Plan: * BPs more stable this morning last 123/72. * Continue home Norvasc, lisinopril, metoprolol. Monitor BP and adjust treatment as needed. (7) Tobacco dependence: Code(s): F17.200 - Nicotine dependence, unspecified, uncomplicated Status: Chronic Assessment and Plan: * Educated on smoking cessation. She verbalized her understanding. (8) Hypokalemia: Code(s): E87.6 - Hypokalemia Status: Acute Assessment and Plan: * K is low at 3.1 and Mg 1.7 this AM. Replace both. Inverted t-waves are noted, RN is notifying cardiology and I will repe
--- NOTE | 2021-01-05 10:19 | PM.IMPN ---
Progress Note: A&P Assessment and Plan (1) Acute non-ST elevation myocardial infarction (NSTEMI): Code(s): I21.4 - Non-ST elevation (NSTEMI) myocardial infarction Status: Acute Assessment and Plan: Patient presents with left chest pain to left arm that is now resolved with no further recurrence. Troponins 0.368 -> 6.51 -> 7.69 -> 12.5. 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 Dr Ocasio consulted. She was treated with heparin gtt initially now s/p C yesterday. Cath 01/04/[address] Ocasio showed distal LAD 75% tubular lesion distal; one small obtuse marginal with total occlusion; RCA with 40-50% disease. Further management per Dr Ocasio - appreciate input. Continue to monitor with cardiac telemetry, monitor for chest pain. (2) Leukocytosis: Qualifiers: Leukocytosis type: unspecified Qualified Code(s): D72.829 - Elevated white blood cell count, unspecified Code(s): D72.829 - Elevated white blood cell count, unspecified Status: Acute Assessment and Plan: WBC 13,600. Afebrile. Suspect may be reactive secondary to above. 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 UA is negative. CXR with emphysema without acute process. No infectious process is suspected at present. Monitor CBC. (3) Anxiety: Code(s): F41.9 - Anxiety disorder, unspecified Status: Acute Assessment and Plan: Continue Ativan PRN. Continue her home Zoloft. Monitor. (4) COPD (chronic obstructive pulmonary disease): Qualifiers: COPD type: unspecified COPD Qualified Code(s): J44.9 - Chronic obstructive pulmonary disease, unspecified Code(s): J44.9 - Chronic obstructive pulmonary disease, unspecified Status: Chronic Assessment and Plan: Continue Xopenex nebs, home Symbicort, finishing the end of a prednisone taper started by her correctional agency director 12/28/20 but will increase prednisone back up to 50mg daily for now given her significant wheezing this morning. (5) Hyperlipidemia: Qualifiers: Hyperlipidemia type: unspecified Qualified Code(s): E78.5 - Hyperlipidemia, unspecified Code(s): E78.5 - Hyperlipidemia, unspecified Status: Chronic Assessment and Plan: Continue home statin therapy. (6) Hypertension: Qualifiers: Hypertension type: essential hypertension Qualified Code(s): I10 - Essential (primary) hypertension Code(s): I10 - Essential (primary) hypertension Status: Chronic Assessment and Plan: BPs more stable this morning last 123/72. Continue home Norvasc, lisinopril, metoprolol. Monitor BP and adjust treatment as needed. (7) Tobacco dependence: Code(s): F17.200 - Nicotine dependence, unspecified, uncomplicated Status: Chronic Assessment and Plan: Educated on smoking cessation. She verbalized her understanding. (8) Hypokalemia: Code(s): E87.6 - Hypokalemia Status: Acute Assessment and Plan: K is low at 3.1 and Mg 1.7 this AM. Replace both. Inverted t-waves are noted, RN is notifying cardiology and I will repeat BMP and Mg now, replace both as needed with goal to keep K > 4.0 and Mg > 2.0 Subjective Date/time seen: 01/05/21 0930 Interval history: Ms. Hernández is a 70yo F admitted for NSTEMI. 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
[2021-01-05] MEDS: METOPROLOL SUCCINATE EXT REL 25 MG TABCR PO (12:23)
[2021-01-05] MEDS: predniSONE 20 MG TABLET 40 MG PO (12:23)
[2021-01-05] MEDS: TICAGRELOR 90 MG TABLET PO (12:24)
--- NOTE | 2021-01-05 13:54 | PCPTNOTE ---
PT/OR orders received...OT attempted x 2, PT x 1, patient is tearful, adamant about declining to participate with therapy...states that she is going to leave AMA...patient's sister is present and also encourages patient to participate..without success...spoke with LALA Storey she said to go ahead and d/c the patient...will d/c patient
--- NOTE | 2021-01-05 14:18 | PC.NURSE ---
Patient notified of risks of leaving AMA. Dr. Ocasio and Cordelia REEVES notified. Follow up instructions given to patient. Patient signed AMA form.
--- NOTE | 2021-01-05 14:37 | PM.PNCARD ---
Progress Note: A&P Assessment and Plan (1) Hyperlipidemia: Qualifiers: Hyperlipidemia type: unspecified Qualified Code(s): E78.5 - Hyperlipidemia, unspecified Code(s): E78.5 - Hyperlipidemia, unspecified Status: Chronic (2) COPD (chronic obstructive pulmonary disease): Qualifiers: COPD type: unspecified COPD Qualified Code(s): J44.9 - Chronic obstructive pulmonary disease, unspecified Code(s): J44.9 - Chronic obstructive pulmonary disease, unspecified Status: Chronic (3) SVT (supraventricular tachycardia): Code(s): I47.1 - Supraventricular tachycardia Status: Acute Assessment and Plan: she was seen and evaluated by Dr. Jordan Blake at [facility], had ablation twice, but now she has recurrence, continue with metoprolol, But with increased dose of metoprolol to 75 twice a day she has no recurrence, she is okay to be discharged home on that, and to have a follow-up with her own reliner (4) Acute respiratory failure: Qualifiers: Respiratory failure complication: hypoxia Qualified Code(s): J96.01 - Acute respiratory failure with hypoxia Code(s): J96.00 - Acute respiratory failure, unspecified whether with hypoxia or hypercapnia Status: Acute (5) Hypoxia: Code(s): R09.02 - Hypoxemia Status: Acute (6) CHF with unknown LVEF: Code(s): I50.9 - Heart failure, unspecified Status: Acute Assessment and Plan: with known severe left ventricular systolic dysfunction, will repeat her echo to evaluate current status, repeat LV g showed normal left ventricular systolic function (7) Acute non-ST elevation myocardial infarction (NSTEMI): Code(s): I21.4 - Non-ST elevation (NSTEMI) myocardial infarction Status: Acute Assessment and Plan: cardiac catheterization done yesterday showed occluded small obtuse marginal but is very small vessel and moderate disease in the distal LAD but at that level became smaller vessel also her LV function is normal. she is okay from cardiac standpoint to be discharged home, to follow up with her primary reliner in 1-2 weeks Subjective Date/time seen: 01/05/21 14:37 she feels better today, no chest pain no significant arrhythmia now no palpitation. Had cardiac catheterization yesterday showed normal left ventricular systolic function with occluded small obtuse marginal, and moderate distal LAD disease, both of which are very small vessels Exam Narrative: Exam Narrative: Awake alert oriented x3 very mild nutrition, seems to have ecchymoses all over, in moderate nervousness but not in acute respiratory distress Neck is supple no obvious JVD, no carotid bruit Chest: Good air entry bilaterally, lungs are clear to auscultation and percussion bilaterally Cardiovascular: Regular rate and rhythm, 2/6 systolic murmur noted left sternal border Abdomen: Soft nontender bowel sounds positive Extremities: No edema has decreased pulses distally bilaterally Objective Data Vital Signs Vital Signs: Vital Signs - 24 hr 01/04/21 16:00 01/04/21 17:15 01/04/21 17:30 Temperature 36.9 C 36.9 C Pulse Rate 93 81 81 Pulse Rate [Bilateral Pedal (Dorsalis Pedis) Palpation] 81 81 Respiratory Rate 18 25 H 22 H Blood Pressure 102/83 102/69 98/74 L Pulse Oximetry 93 96 96 01/04/21 17:45 01/04/21 18:00 01/04/21 18:31 Temperature 36.6 C Pulse Rate 82 88 81 Pulse Rate [Bilateral Pedal (Dorsalis Pedis) Palpation] 82 88 Respiratory Rate 21 H 20 24 H Blood Pressure 111/86 91/64 L 104/68 Pulse Oximetry 94 94 96 01/04/21 19:00 01/04/21 19:40 01/04/21 19:50 Temperature 36.6 C Pulse Rate 87 76 85 Pulse Rate [Bilateral Pedal (Dorsalis Pedis) Palpation] Respiratory Rate 18 20 20 Blood Pressure 97/67 L Pulse Oximetry 96 01/04/21 20:00 01/04/21 20:38 01/04/21 21:00 Temperature 36.6 C 36.4 C L Pulse Rate 82 79 74 Pulse Rate [Bilateral Pedal (Dorsalis Pedi
== END 2021-01-05 14:27 | disposition left against medical advice (07) ==
LOC: ANHED 20:45 → ANHIMU 20:50
PROVIDERS: Emergency Medicine Emergency Medical Services; Specialist; Admitting Provider Family Medicine; Emergency Provider General Practice; PCP Family Medicine; Visit Provider Physician Assistant
PROC: 4A023N7 Measurement of Cardiac Sampling and Pressure, Left Heart, Percutaneous Approach (ICD-10-PCS; CPT 93452; principal; 2021-01-04 15:30)
DX: I21.4 Non-ST elevation (NSTEMI) myocardial infarction (principal); D72.829 Elevated white blood cell count, unspecified; E87.6 Hypokalemia; F41.9 Anxiety disorder, unspecified; J44.9 Chronic obstructive pulmonary disease, unspecified; E78.5 Hyperlipidemia, unspecified; F17.210 Nicotine dependence, cigarettes, uncomplicated; I47.1 Supraventricular tachycardia; I11.0 Hypertensive heart disease with heart failure; I50.9 Heart failure, unspecified; R06.02 Shortness of breath
CPT/HCPCS: 36415; 51701; 71045; 80048; 80053; 80061; 81003; 83735; 84484; 85025; 85055; 85610; 85730; 93005; 93458; 94640; 96361; 96365; 96366; 96375; 96376; 99291; A9270; C1760; C1887; C1894; G0269; G0378; J1644; J2060; J2250; J2405; J3010; J3475; J7030; J7040; J7512

== ENCOUNTER 2021-08-07 17:06 | Emergency (ER) | payer MEDICARE, MEDICAID, SELFPAY ==
[2021-08-07 17:21] VITALS: BP 136/78; PULSE 99; RESP 16; TEMP 36.9; O2SAT 97
--- NOTE | 2021-08-07 17:25 | ED.WOUNDLAC ---
HPI - Wound/Laceration General Chief Complaint: Wound/Laceration Stated Complaint: cut left leg Time Seen by Provider: 08/07/21 17:35 Source: patient and RN notes reviewed Mode of arrival: ambulatory Limitations: no limitations History of Present Illness HPI narrative: 71-year-old female presents concern for skin tear to the left leg. Reports she sustained a skin tear prior to arrival Extremity Location: Left: lower leg Related Data Home Medications Medication Instructions Recorded Confirmed albuterol sulfate 90 mcg/actuation 2 puff INHALATION Q4H PRN 11/24/19 01/30/21 aerosol inhaler alprazolam 0.25 mg tablet 0.5 mg PO TID PRN 11/24/19 01/30/21 ipratropium 0.5 mg-albuterol 3 mg 3 ml INHALATION Q4H 11/24/19 01/30/21 (2.5 mg base)/3 mL nebulization soln ondansetron 4 mg disintegrating 4 mg PO Q8H PRN 11/24/19 01/30/21 tablet calcium carbonate-vitamin D3 1 cap PO HS 04/02/20 01/30/21 [Calcium 600 with Vitamin D3] amlodipine 2.5 mg PO DAILY 01/03/21 01/30/21 denosumab [Prolia] 60 mg SUBCUT Q6M 01/03/21 01/30/21 furosemide 20 mg PO BID 01/03/21 01/30/21 lansoprazole 15 mg PO BID 01/03/21 01/30/21 meclizine 6.25 mg PO TID PRN 01/03/21 01/30/21 metoprolol succinate 50 mg PO Q12H 01/03/21 01/30/21 potassium chloride 10 meq PO DAILY 01/03/21 01/30/21 prednisone 10 mg PO DIRECTED 01/03/21 01/30/21 rosuvastatin 2.5 mg PO DAILY 01/03/21 01/30/21 sertraline 25 mg PO BID 01/03/21 01/30/21 clopidogrel 08/07/21 [id number] INHALATION 08/07/21 [Trelegy Ellipta] Allergies Allergy/AdvReac Type Severity Reaction Status Date / Time codeine AdvReac Unknown Nausea and Verified 01/03/21 22:16 Vomiting propoxyphene AdvReac Unknown Nausea Verified 01/03/21 22:16 Review of Systems Review of Systems: CONSTITUTIONAL: Denies malaise, chills, sweats, or fever. SKIN: Reports skin tear to the left lower leg MUSCULOSKELETAL: Denies muscle skeletal pain All systems reviewed & are unremarkable except as noted in HPI and below PMFSH Past Medical History Medical History (Updated 08/07/21 @ 18:07 by Nell Kamara NP) Asthma COPD (chronic obstructive pulmonary disease) Coronary artery disease Osteoarthritis of left knee Osteoporosis Surgical History Surgical History H/O Spinal surgery 5, 6, 7 = Nov 2017 Family History Family History Other Unknown family medical history Social History Social History Smoking packs per day: 0.5 Smoking cigarettes per day: 10.0 Years smoked: 40 Smoking pack-years: 20.00 Smoking status: Current every day smoker Tobacco type: cigarettes Alcohol intake: never Alcohol use details: Occasional Substance use: never Substance use type: does not use Additional living arrangements comments: Sister & brother in law Gender identity (if verbalized by the patient): Female Spiritual care concerns: No Comments At time of signature, agree with nursing past medical, surgical, social and family history. There is no relevant family history pertinent to the presenting complaint Exam Narrative: GENERAL: Well-appearing, well-nourished, and in no acute distress. HEAD: Normocephalic, atraumatic. EYES: PERRLA, conjunctivae clear ENT: Mucous membranes moist. NECK: Supple. No lymphadenopathy CHEST: Clear to auscultation. No respiratory distress. HEART: Regular rate and rhythm. SKIN: Warm, dry. 8 cm linear skin tear over the noted to the left lower leg with surrounding ecchymosis. No edema, erythema, induration noted NEURO: Alert and oriented x3. PSYCH: Normal mood and affect Course Course Emergency Course: Torn skin replaced, approximated as much as possible, wound closed with Steri-Strips and covered with Tegaderm. Patient is aware of diagnosis, understands and agrees to jg
== END 2021-08-07 18:14 | disposition home or self-care (01) ==
PROVIDERS: Emergency Provider Nurse Practitioner; PCP Family Medicine
DX: S81.812A Laceration without foreign body, left lower leg, initial encounter (principal); X58.XXXA Exposure to other specified factors, initial encounter; F17.210 Nicotine dependence, cigarettes, uncomplicated; J44.9 Chronic obstructive pulmonary disease, unspecified; I25.10 Atherosclerotic heart disease of native coronary artery without angina pectoris; M17.12 Unilateral primary osteoarthritis, left knee; M81.0 Age-related osteoporosis without current pathological fracture
CPT/HCPCS: 99213; G0463

== ENCOUNTER 2021-10-02 08:01 | Inpatient (IN) | payer MEDICARE, MEDICAID, SELFPAY ==
[2021-10-02] VITALS (21 sets, daily range): BP systolic 120–153; BP diastolic 64–90; PULSE 63–89; RESP 14–26; TEMP 36.3–36.5; O2SAT 96–100
--- NOTE | ~2021-10-02 | CT_ITS ---
EXAMINATION: CT chest abdomen pelvis w con DATE: 10/02/2021 10:22 INDICATION: Chest tightness and left-sided abdominal pain post fall TECHNIQUE: Computed tomography (CT) of the chest, abdomen, and pelvis was performed with 100 mL Omnip aque-350 intravenous contrast. Automated exposure control and iterative reconstruction technique were employed. The dose-length product was 347.82 mGy-cm. COMPARISON: Chest CT dated 03/31/2020 and 11/22/2017 FINDINGS: CHEST CT: Moderate emphysema with stable appearance of prominent relatively symmetric biapical pleural-parenchy mal scarring. Mild dependent atelectasis in the right lower lobe. No pneumonia, pulmonary edema, pleu ral effusion or pneumothorax. Small amount of embolized methylmethacrylate within the pulmonary arter y of the right middle lobe. Heart size is normal. Atherosclerotic coronary artery calcification. No p ericardial effusion. Atherosclerotic calcifications along the normal caliber aorta. Small penetrating atherosclerotic ulcer along the medial side of the distal descending thoracic aorta. No dissection. No pathologically enlarged thoracic lymphadenopathy. Compression fractures with vertebral plasties at T5 and T7 and without plasty at T6. ABDOMEN/PELVIS CT: Focal hepatic steatosis at the ligamentum teres. 6 mm hepatic cyst along the gallbladder fossa. Galls tones at the neck of the otherwise normal-appearing gallbladder with no wall thickening or pericholec ystic inflammatory change to suggest acute cholecystitis. Spleen, pancreas and bilateral adrenal glan ds are normal. Bilateral renal cysts measuring up to 2.7 cm the right kidney. Large gas-filled gastri c diverticulum at the gastric fundus. Moderate amount stool scattered throughout the colon. Prominent sigmoid diverticulosis without adjacent inflammatory change to suggest diverticulitis. No bowel obst ruction. Bladder, uterus and bilateral adnexa are unremarkable. No free intraperitoneal gas or fluid. No pathologically enlarged abdominal or pelvic lymphadenopathy. There is scattered calcified atheros clerosis of the tortuous and ectatic aorta and many of the other arteries without hemodynamically sig nificant stenosis. Moderate to severe lower lumbar spondylosis. No acute osseous abnormality. IMPRESSION: 1. No acute osseous abnormality or acute intrathoracic, abdominal or pelvic process. 2. Moderate emphysema with prominent chronic biapical pleural-parenchymal scarring. 3. Cholelithiasis. 4. Sigmoid diverticulosis. 5. Small penetrating atherosclerotic ulcer at the distal descending thoracic aorta. Reviewed, dictated and finalized at location B. STOCK CARET[employer]ER IMPRESSION: 1. No acute osseous abnormality or acute intrathoracic, abdominal or pelvic pro cess. 2. Moderate emphysema with prominent chronic biapical pleural-parenchymal scarr ing. 3. Cholelithiasis. 4. Sigmoid diverticulosis. 5. Small penetrating atherosclerotic ulcer at the distal descending thoracic ao rta.
--- NOTE | ~2021-10-02 | CT_ITS ---
EXAMINATION: CT cervical spine wo con DATE: 10/02/2021 10:21 INDICATION: Neck pain. TECHNIQUE: Computed tomography (CT) of the cervical spine was performed without intravenous contrast. Automated exposure control and iterative reconstruction technique were employed. The dose-length pro duct was 108.51 mGy-cm. COMPARISON: CT cervical spine 09/13/2020, chest CT 03/31/2020 FINDINGS: The lung apices demonstrate emphysema and chronic scarring. There is 2 mm retrolisthesis of C4 on C5 and C5 on C6. Vertebral body heights are normal. There is mildly decreased disc height at C 4-C5 and moderately decreased disc at C5-C6. The following disc levels are specifically discussed: C2-C3: There is mild bilateral uncovertebral joint osteoarthritis. There is mild bilateral facet join t osteoarthritis. There is mild right neural foraminal stenosis. There is no central canal stenosis. C3-C4: There is mild bilateral uncovertebral joint osteoarthritis. There is moderate bilateral facet joint osteoarthritis. There is mild right neural foraminal stenosis. There is no central canal stenos is. C4-C5: There is no uncovertebral joint osteoarthritis. There is moderate bilateral facet joint osteoa rthritis. There is no neural foraminal stenosis. There is no central canal stenosis. C5-C6: There is severe bilateral uncovertebral joint osteoarthritis. There is mild bilateral facet valentine int osteoarthritis. There is moderate right and mild left neural foraminal stenosis. There is mild ce ntral canal stenosis. C6-C7: There is mild left uncovertebral joint osteoarthritis. There is no facet joint osteoarthritis. There is no neural foraminal stenosis. There is mild central canal stenosis. C7-T1: There is no uncovertebral joint osteoarthritis. There is mild bilateral facet joint osteoarthr itis. There is no neural foraminal stenosis. There is no central canal stenosis. IMPRESSION: 1. No fracture. 2. Moderate cervical spondylosis. Reviewed, dictated and finalized at location A. LESOFT TALEO MANAGER
--- NOTE | ~2021-10-02 | MR_ITS ---
EXAMINATION: MR brain/brain stem wo/w con DATE: 10/03/2021 11:32 INDICATION: Confusion. TECHNIQUE: Magnetic resonance imaging (MRI) of the brain and brainstem was performed without and with 9 mL MultiHance intravenous contrast. Sequences included sagittal and axial T1-weighted FSE, axial d iffusion-weighted FS EPI, axial T2*-weighted GRE, axial T2-weighted FLAIR Propeller, and axial T2-vira ghted Propeller. Postcontrast sequences included axial, sagittal, and coronal T1-weighted FSE. Appare nt diffusion coefficient (ADC) maps were created. COMPARISON: Head CT 10/02/2021 FINDINGS: There are scattered areas of nonspecific increased T2-weighted signal intensity in the cere bral white matter and alison, which is within normal limits for the patient's age. There are prominent perivascular spaces in the bilateral basal ganglia. There is no intracranial hemorrhage, acute infarc tion, or abnormal intracranial mass lesion. The ventricles are normal in size. There are likely hernández es of ocular lens replacement surgeries. The paranasal sinuses are clear. The mastoid air cells are n ormal. IMPRESSION: 1. Normal aging brain. Reviewed, dictated and finalized at location A. DRESSER IMPRESSION: 1. Normal aging brain.
--- NOTE | ~2021-10-02 | XR_ITS ---
EXAMINATION: XR hand RT min 3V DATE: 10/02/2021 08:48 INDICATION: Right hand injury. TECHNIQUE: 3 views of right hand were obtained. COMPARISON: None. FINDINGS: Bone alignment is normal. No fracture. There is severe osteoarthritis of triscaphe joint an d mild osteoarthritis of first carpometacarpal joint, first and second metacarpophalangeal joints, an d most of the interphalangeal joints. IMPRESSION: 1. Polyarticular osteoarthritis. Reviewed, dictated and finalized at location A. EW SCHEDULING COORDINATOR
--- NOTE | ~2021-10-02 | XR_ITS ---
EXAMINATION: XR knee RT 3V DATE: 10/02/2021 08:48 INDICATION: Right knee injury. TECHNIQUE: 3 views of right knee were obtained. COMPARISON: Right knee radiographs 09/13/2020 FINDINGS: Bone alignment is normal. No fracture. There is mild osteoarthritis of patellofemoral michael rtment. No knee joint effusion. IMPRESSION: 1. Mild right knee osteoarthritis. Reviewed, dictated and finalized at location A. CAPTAIN
--- NOTE | ~2021-10-02 | CT_ITS ---
EXAMINATION: CT brain wo con DATE: 10/02/2021 10:21 INDICATION: Headache. TECHNIQUE: Computed tomography (CT) of the head was performed without intravenous contrast. The mA wa s adjusted according to patient size. Iterative reconstruction technique was employed. The dose-lengt h product was 605.33 mGy-cm. COMPARISON: Head CT 09/13/2020 FINDINGS: There are old lacunar infarcts in the right basal ganglia. There are scattered areas of low attenuation in the cerebral white matter, which is within normal limits for the patient's age. There is no intracranial hemorrhage, acute infarction, or abnormal intracranial mass lesion. The ventricle s are normal in size. The paranasal sinuses are clear. There are likely changes of ocular lens replac ement surgeries. There are trace bilateral mastoid effusions. IMPRESSION: 1. Old lacunar infarcts in the right basal ganglia. Reviewed, dictated and finalized at location A. VAN CDL TRUCK DRIVER
--- NOTE | ~2021-10-02 | XR_ITS ---
EXAMINATION: XR chest 1V portable DATE: 10/04/2021 12:45 INDICATION: Cough and wheezing TECHNIQUE: frontal view of the chest was obtained. COMPARISON: 01/03/[address] dated 10/02/2021 FINDINGS: Hyperexpansion of lungs consistent with emphysema better appreciated on prior CT. Unchanged moderate biapical pleural-parenchymal scarring. 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 No other airspace opacities, pulmonary edema, pleural effusion or pneumothorax. The cardiomediastinal silhouette is normal. Compression fractures with prior vertebroplasty at T5 and T7 and without vertebral plasties at T6. Old right seventh rib fracture. IMPRESSION: 1. Emphysema with chronic moderate biapical pleural-parenchymal scarring. No acute cardiopulmonary di sease. Reviewed, dictated and finalized at location B. F TENDER HEAD IMPRESSION: 1. Emphysema with chronic moderate biapical pleural-parenchymal scarring. No ac tyonek cardiopulmonary disease.
--- NOTE | ~2021-10-02 | XR_ITS ---
EXAMINATION: XR hand LT min 3V DATE: 10/02/2021 08:48 INDICATION: Left hand injury. TECHNIQUE: 3 views of left hand were obtained. COMPARISON: None. FINDINGS: Bone alignment is normal. No fracture. There is mild osteoarthritis of triscaphe joint and moderate osteoarthritis of first carpometacarpal joint. There is mild osteoarthritis of most of the i nterphalangeal joints. IMPRESSION: 1. Polyarticular osteoarthritis. Reviewed, dictated and finalized at location A. HEARTH LABORER
--- NOTE | ~2021-10-02 | XR_ITS ---
EXAMINATION: XR wrist RT min 3V DATE: 10/02/2021 08:48 INDICATION: Right wrist injury. TECHNIQUE: 4 views of right wrist were obtained. COMPARISON: None. FINDINGS: Bone alignment is normal. No fracture. There is severe osteoarthritis of triscaphe joint an d mild osteoarthritis of first carpometacarpal joint. IMPRESSION: 1. Polyarticular osteoarthritis. Reviewed, dictated and finalized at location A. RVISOR BROODER FARM
--- NOTE | ~2021-10-02 | US_ITS ---
EXAMINATION: US carotid duplex BI DATE: 10/03/2021 09:08 INDICATION: Infarcts in the right basal ganglia. TECHNIQUE: Grayscale, color Doppler, and pulsed Doppler images of the cervical carotid arteries were obtained. The degree of vessel stenosis is placed in one of the following categories: normal, <50%, 5 0-69%, >=70% but less than near-occlusion, near-occlusion, or total occlusion. Note that percent sten osis relative to normal distal artery lumen diameter is indirectly measured from velocity measurement s as described by Munir, et al. Radiology 2003; 229:340-346. COMPARISON: None. FINDINGS: RIGHT: The right common carotid artery (CCA) peak systolic velocity (PSV) is 71 cm/s. The right internal car otid artery (ICA) PSV is 57 cm/s. The right ICA end-diastolic velocity (EDV) is 14 cm/s. The right IC A/CCA PSV ratio is 0.8. Grayscale and color Doppler images yield an estimate of <50% diameter reducti on from plaque in the ICA. There is antegrade flow in the right vertebral artery. LEFT: The left CCA PSV is 72 cm/s. The left ICA PSV is 81 cm/s. The left ICA EDV is 24 cm/s. The left ICA/C CA PSV ratio is 1.1. Grayscale and color Doppler images yield an estimate of <50% diameter reduction from plaque in the ICA. There is antegrade flow in the left vertebral artery. IMPRESSION: 1. <50% stenosis in the right internal carotid artery. 2. <50% stenosis in the left internal carotid artery. Reviewed, dictated and finalized at location A. N GROWER
--- NOTE | ~2021-10-02 | XR_ITS ---
EXAMINATION: XR elbow LT min 3V DATE: 10/02/2021 08:48 INDICATION: Left elbow injury. TECHNIQUE: 4 views of left elbow were obtained. COMPARISON: None. FINDINGS: Bone alignment is normal. No fracture. Joint spaces are well maintained. There is no elbow joint effusion. IMPRESSION: 1. No fracture. Reviewed, dictated and finalized at location A. RRER MACHINE IMPRESSION: 1. No fracture.
--- NOTE | 2021-10-02 08:19 | ECG_ITS ---
Measurements Intervals [place] Rate: 68 P: 52 MA: 171 QRS: -54 QRSD: 160 T: 33 QT: 490 QTc: 523 Interpretive Statements SINUS RHYTHM ATRIAL PREMATURE COMPLEXES RIGHT BUNDLE BRANCH BLOCK LEFT ANTERIOR FASCICULAR BLOCK BASELINE ARTIFACT- V4-V5 ABNORMAL ECG Electronically Signed On 10-02-2021 11:27:46 CHANGE MANAGEMENT ANALYST by Gerson Zazueta D.O.
[2021-10-02] MEDS: SODIUM CHLORIDE 0.9% IV 1,000 ML 999 ML IV CONT (08:25)
[2021-10-02 09:34] LABS: Prothrombin Time 13.5 Seconds (11.1-14.7)
[2021-10-02 09:35] LABS: Partial Thromboplastin Time 29.5 SECONDS (22.3-36.8)
[2021-10-02 09:40] LABS: Acetaminophen < 10 ug/mL (10-30); Ammonia < 9 umol/L (9-30); Ethanol < 10 mg/dL (<10); Salicylate < 1.0 mg/dL (2-20)
[2021-10-02 09:45] LABS: Alanine Aminotransferase 9 U/L (4-35); Albumin Level 3.8 g/dL (3.5-5.1); Alkaline Phosphatase 83 U/L (38-126); Anion Gap 8 mmol/L (8-16); Aspartate Amino Transferase 19 U/L (14-36); Bilirubin,Total 0.6 mg/dL (0.2-1.3); Blood Urea Nitrogen 20 mg/dL (7-17); Calcium 8.7 mg/dL (8.4-10.2); Carbon Dioxide 27 mmol/L (22-30); Chloride 100 mmol/L (98-107); Estimated Glomerular Filt Rate 44; Glucose 82 mg/dL (65-110); Potassium 2.7 mmol/L (3.4-5.0); Sodium 135 mmol/L (137-145)
[2021-10-02 09:48] LABS: Troponin I 0.028 ng/mL (0.000-0.034)
[2021-10-02] MEDS: POTASSIUM CHLORIDE 20 MEQ PACKET (FOR LIQUID) 40 MEQ PO (09:54)
[2021-10-02 10:11] LABS: Basophils Absolute Auto 0.1 K/mm3 (0.0-0.1); Basophils Percent Auto 0.5 % (0.2-1.2); Eosinophils Absolute Auto 0.3 K/mm3 (0-0.3); Eosinophils Percent Auto 2.5 % (0-4.4); Hemoglobin 10.2 g/dL (12.0-15.0); Immature Granulocyte Absolute 0.11 K/mm3 (0.00-0.031); Lymphocytes Absolute Auto 1.41 K/mm3 (0.9-3.2); Lymphocytes Percent Auto 12.7 % (18.3-44.2); Mean Corpuscular HGB Conc 31.9 g/dl (32-36); Mean Corpuscular Hemoglobin 30.2 pg (26-34); Mean Corpuscular Volume 94.7 fl (80-100); Mean Platelet Volume 11.4 fl (7.4-10.4); Monocytes Absolute Auto 0.8 K/mm3 (0.1-0.6); Monocytes Percent Auto 7.6 % (2.6-8.5); Neutrophils Absolute Auto 8.4 K/mm3 (1.3-6.7); Neutrophils Percent Auto 75.7 % (45.5-73.1); Platelet Count Result 150 k/mm3 (150-375); Red Blood Count 3.38 M/mm3 (4.2-5.4); Red Cell Distribution Width 15.1 % (11.5-14.5); White Blood Count 11.1 K/mm3 (4.5-10.0)
[2021-10-02 10:14] LABS: Magnesium 1.8 mg/dL (1.6-2.3); Phosphorus 2.4 mg/dL (2.5-4.5)
[2021-10-02] MEDS: TETANUS,DIPHTHERIA,AC PERTUSSIS ADULT (0.5 ML) BOOSTRIX IM (10:32)
--- NOTE | 2021-10-02 11:35 | ED.FALL ---
HPI - Fall General Chief Complaint: Fall Stated Complaint: fall Time Seen by Provider: 10/02/21 08:14 Source: patient and family History of Present Illness HPI Narrative: Patient was brought in the ER after a fall. Family reports she was very confused last night denies prior history of dementia. Family reports she was dressed like to start her day she was talking to individuals that were there. She thought her grandson was sitting on the couch after looking at a picture of him sitting on the couch. They have noted intermittent episodes of confusion over the past couple weeks but most significantly last night. They returned to monitor however she ended up in the garage and was screaming for help. They found her on the ground by the car the fall was unwitnessed. Patient is unable to clearly describe the events. Patient's only complaint is low back pain Related Data Home Medications Medication Instructions Recorded Confirmed albuterol sulfate 90 mcg/actuation 2 puff INHALATION Q4H PRN 11/24/19 09/18/21 aerosol inhaler alprazolam 0.25 mg tablet 0.5 mg PO TID PRN 11/24/19 09/18/21 ipratropium 0.5 mg-albuterol 3 mg 3 ml INHALATION Q4H 11/24/19 09/18/21 (2.5 mg base)/3 mL nebulization soln ondansetron 4 mg disintegrating 4 mg PO Q8H PRN 11/24/19 09/18/21 tablet calcium carbonate-vitamin D3 1 cap PO HS 04/02/20 09/18/21 [Calcium 600 with Vitamin D3] amlodipine 2.5 mg PO DAILY 01/03/21 09/18/21 denosumab [Prolia] 60 mg SUBCUT Q6M 01/03/21 09/18/21 furosemide 20 mg PO BID 01/03/21 09/18/21 lansoprazole 15 mg PO BID 01/03/21 09/18/21 meclizine 6.25 mg PO TID PRN 01/03/21 09/18/21 metoprolol succinate 50 mg PO Q12H 01/03/21 09/18/21 potassium chloride 10 meq PO DAILY 01/03/21 09/18/21 prednisone 10 mg PO DIRECTED 01/03/21 09/18/21 rosuvastatin 2.5 mg PO DAILY 01/03/21 09/18/21 sertraline 25 mg PO BID 01/03/21 09/18/21 clopidogrel 08/07/21 09/18/21 [id number]-[id number] INHALATION 08/07/21 09/18/21 [Trelegy Ellipta] Allergies Allergy/AdvReac Type Severity Reaction Status Date / Time codeine AdvReac Unknown Nausea and Verified 10/02/21 08:20 Vomiting propoxyphene AdvReac Unknown Nausea Verified 10/02/21 08:20 Review of Systems Review of Systems: CONSTITUTIONAL: Denies fever, chills, or sweats. EYES: Denies visual changes, redness, or discharge. ENT: Denies rhinorrhea, congestion, sore throat, or otalgia. CARDIOVASCULAR: Denies chest pain, palpitations, or edema. RESPIRATORY: Denies cough or dyspnea. GASTROINTESTINAL: Denies abdominal pain, nausea, vomiting, or diarrhea. GENITOURINARY: Denies dysuria or hematuria. SKIN: Denies rash or itching. MUSCULOSKELETAL: Denies back pain, joint pain, or myalgia. NEUROLOGIC: Denies headache, numbness, dizziness, or weakness. PSYCHIATRIC: Denies anxiety or depression. All systems reviewed & are unremarkable except as noted in HPI and below PMFSH Past Medical History Medical History (Updated 10/02/21 @ 15:37 by Joanne Hogan NP) Anxiety Asthma COPD (chronic obstructive pulmonary disease) Coronary artery disease Hypertension Osteoarthritis of left knee Osteoporosis Surgical History Surgical History H/O Spinal surgery 5, 6, 7 = Nov 2017 Family History Family History Other Unknown family medical history Social History Social History (Updated 10/02/21 @ 15:09 by Joanne Hogan NP) Social History: The patient is listed as a full code. She is listed as currently being a smoker. He is not known how much she drinks Smoking packs per day: 0.5 Smoking cigarettes per day: 10.0 Years smoked: 40 Smoking pack-years: 20.00 Smoking status: Current every day smoker Tobacco type: cigarettes Alcohol intake: never Alcohol use details: Occasional Substance use: never Substance use type: does not use Additional daniel
[2021-10-02 12:14] LABS: Glucose Point of Care 68 mg/dl (65-105)
--- NOTE | 2021-10-02 12:23 | PC.NURSE ---
Bedside glucose 68. Pt given pepsi, refused apple juice, aware.
[2021-10-02 13:18] LABS: Add Urine Microscopic? YES; Appearance Urine Clear (Clear); Bilirubin Urine Negative (Negative); Blood Urine 1+ (Negative); Color Urine Straw (Yellow); Glucose Urine UA Negative (Negative); Ketones Urine Negative (Negative); Leukocyte Esterase Ur Trace LEU/UL (Negative); Nitrate Urine Negative (Negative); Protein Urine Negative (Negative); Squamous Epithelial Cell Urine Many /hpf (Few); Urobilinogen Urine Negative mg/dL (<2.0)
[2021-10-02 13:31] LABS: Amphetamine Screen Urine Negative (Negative); Barbiturate Screen Urine Negative (Negative); Benzodiazepines Screen Urine Positive (Negative); Cannabinoid Screen Urine Negative (Negative); Cocaine Screen Urine Negative (Negative); Methadone Screen Urine Negative (Negative); Opiate Screen Urine Negative (Negative); Phencyclidine Screen Urine Negative (Negative)
[2021-10-02] MEDS: HALOPERIDOL LACTATE 5 MG/ML VIAL IV PUSH ×2 (13:33→14:16)
[2021-10-02] MEDS: LORazepam INJ (*CRX) 2 MG/ML VIAL 1 MG IV PUSH ×2 (13:48→16:24)
--- NOTE | 2021-10-02 14:51 | PM.IMHP ---
H&P: HPI History of Present Illness Date/Time: 10/02/21 14:51 this is a 71-year-old female patient who resides with her family. Is reported that she has a history of dementia. The family is not at the bedside at this time. However troponin ER note that the patient was very confused last night. The family reported to the emergency provider that she was dressed home and was talking to individuals that were not there. The patient was having hallucinations. She thought that her grandson was sitting on the couch after looking at a picture of him. She is having episodes of confusion over the past couple weeks. The patient has multiple purple bruises and skin tears on both of her arms. Since our purple bruise over her left eyelid and multiple skin tears to both her arms. She has purple bruising all over arms and her legs. The patient stated that she had fallen down 14 steps. The patient stated that she falls all the time. The family reported to the emergency department that the patient has been having more episodes of confusion over the last couple weeks but more significantly at night. The patient was found to be in the garage and was screaming for help. The fall was unwitnessed. When I went to assess the patient in the room, she started screaming and was wanting to call the police. I had asked her about what happened and why she was at the hospital and that is when she got became very upset. She accused me of possibly reporting conditions in her home and accused the nurse of causing all of her skin tears when an IV was placed. The patient is very confused and attempting to get out of bed. She is refusing to get back into bed and is unsteady on her feet. I did order her some Haldol in the ER physician gave her some Ativan. The patient was given a tetanus booster, IV fluids, Haldol and Ativan. Her white count was noted to be 11.1. H&H 10.2 and 32. Potassium 2.7. Potassium supplement has been ordered. Creatinine 1.2 the patient is being admitted to observation status on the date of service 10/02/2021. Chief Complaint: Fall Review of Systems Review of Systems: ROS unobtainable: Yes unobtainable due to mental status [facility] Past Medical History Medical History (Updated 10/02/21 @ 15:37 by Joanne Hogan NP) Anxiety Asthma COPD (chronic obstructive pulmonary disease) Coronary artery disease Hypertension Osteoarthritis of left knee Osteoporosis Surgical History Surgical History H/O Spinal surgery 5, 6, 7 = Nov 2017 Family History Family History Other Unknown family medical history Social History Social History (Updated 10/02/21 @ 15:09 by Joanne Hogan NP) Social History: The patient is listed as a full code. She is listed as currently being a smoker. He is not known how much she drinks Smoking packs per day: 0.5 Smoking cigarettes per day: 10.0 Years smoked: 40 Smoking pack-years: 20.00 Smoking status: Current every day smoker Tobacco type: cigarettes Alcohol intake: never Alcohol use details: Occasional Substance use: never Substance use type: does not use Additional living arrangements comments: Sister & brother in law Gender identity (if verbalized by the patient): Female Spiritual care concerns: No Meds Home Medications and Allergies Home Medications Medication Instructions Recorded Confirmed Type albuterol sulfate 90 mcg/actuation 2 puff INHALATION Q4H PRN 11/24/19 09/18/21 History aerosol inhaler alprazolam 0.25 mg tablet 0.5 mg PO TID PRN 11/24/19 09/18/21 History ipratropium 0.5 mg-albuterol 3 mg 3 ml INHALATION Q4H 11/24/19 09/18/21 History (2.5 mg base)/3 mL nebulization soln ondansetron 4 mg disintegrating 4 mg PO Q8H PRN 11/24/19 09/18/21 History tablet budesonide-formoterol [Symbicort] 2 puff INHALATION Q12HRT 30 Days 04/02/20 1
[2021-10-02] MEDS: NICOTINE (*PBKC) 21 MG PATCH 1 PATCH TRANSDERM (15:14)
[2021-10-02] MEDS: HALOPERIDOL LACTATE 5 MG/ML VIAL 10 MG IV PUSH (15:14)
[2021-10-02 15:23] LABS: Glucose Point of Care 86 mg/dl (65-105)
[2021-10-02] MEDS: diphenhydrAMINE HCl INJ 50 MG/ML VIAL 25 MG IV PUSH (17:01)
--- NOTE | 2021-10-02 18:08 | ADMGEN ---
This patient, Marcella Hernández, was admitted to Medical Room 257-01. Patient/family oriented to hospital policies and general routines including ID bracelet, bed and alarms, visiting hours, pain management, procedures, bathroom and other care routines, personal items, smoking policy, room service/diet, and visiting hours. Information on how to activate the Rapid Response Team has been discussed. Patient/Family are encouraged to report perceived risks to care and to ask questions if they do not understand what they are told or what they should do.
[2021-10-02] MEDS: SODIUM CHLORIDE 0.9% IV 1,000 ML 125 ML IV CONT (18:50)
[2021-10-02 21:27] LABS: Anion Gap 7 mmol/L (8-16); Blood Urea Nitrogen 16 mg/dL (7-17); Carbon Dioxide 24 mmol/L (22-30); Chloride 104 mmol/L (98-107); Estimated Glomerular Filt Rate > 60; Glucose 86 mg/dL (65-110); Potassium 2.7 mmol/L (3.4-5.0); Sodium 135 mmol/L (137-145)
--- NOTE | 2021-10-02 23:33 | PC.NURSE ---
Late entry charting: Around 1:00 PM, patient became increasingly agitated. Remained oriented to person, place, and time, but was increasingly difficult to redirect or calm. MD aware, ordered haldol. Throughout the day, patient continued to be agitated and combative, which escalated to security being present to attempt to keep patient in bed and allow RN to give IV medications. Daughters were called for the patient in an attempt to help re-orient patient to no avail. Daughters remained at bedside, very helpful in attempting to redirect patient. Pt was placed on a bed alarm, 1:1 registered safety engineer to keep patient free from falls and in bed. Multiple skin tears made worse by patient thrashing herself in bed. Multiple attempts by this RN were made to re-dress and cover wounds using triple antibiotic, telfa, gauze, and coban when patient would allow without hitting.
[2021-10-02] MEDS: LORazepam INJ (*CRX) 2 MG/ML VIAL 0.5 MG IV PUSH (23:38)
[2021-10-02] MEDS: MAGNESIUM SULF 1 GM/D5W 100 ML 1 GM/100 ML BAG IVPB (23:44)
[2021-10-03] VITALS (14 sets, daily range): BP systolic 108–192; BP diastolic 59–95; PULSE 77–97; RESP 18–24; TEMP 36.2–36.7; O2SAT 90–99
--- NOTE | 2021-10-03 | ECHO_ITS ---
Patient Info Name: Marcella Barreto Hernández Age: 71 years : 1950 Gender: Female Ht: 64 in Wt: 99 lbs BSA: 1.41 m2 HR: 87 bpm BP: 192 / 95 mmHg Heart Rhythm: Sinus Rhythm Technical Quality: Good Exam Date: 10/03/2021 9:17 AM Exam Location: [facility] Patient Status: Inpatient Admit Date: 10/02/2021 Staff Ordering Physician: Tonie Timmons PA-C Cuff Matcher: Sherry Shirley RDCS Attending Provider: Tonie Timmons PA-C Referring Physician: Iain KELLY; Exam Type: CA echo doppler w bubble study Study Info Indications - CONFUSION - OLD CVA Complete two-dimensional, color flow and Doppler transthoracic echocardiogram is performed with agitated saline. Contrast/Agitated Saline Contrast/Ag. Saline: Agitated Saline Amount: 30.00 ml Existing IV Access: Yes IV Access Condition: patent with no signs of infiltration Summary 1. Left ventricular chamber dimension is mildly enlarged. 2. Left ventricular systolic function is normal, estimated at 55-60%. 3. There is mildly increased left ventricular wall thickness. 4. The left ventricular diastolic function is grade I diastolic dysfunction. 5. Left atrial chamber dimension is mildly enlarged. 6. Intact interatrial septum visualized by color flow imaging. 7. A couple of bubbles are noted greater than 5 cardiac cycles after injection and with Valsalva. 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 8. The mitral valve annulus is mildly calcified. 9. There is mild mitral valve regurgitation. 10. There is mild tricuspid valve regurgitation. Left Ventricle Left ventricular chamber dimension is mildly enlarged. Left ventricular systolic function is normal, estimated at 55-60%. There is mildly increased left ventricular wall thickness. The left ventricular diastolic function is grade I diastolic dysfunction. Right Ventricle Right ventricular chamber dimension is normal. Right ventricular systolic function is normal. Left Atria Left atrial chamber dimension is mildly enlarged. Right Atria Right atrial chamber dimension is normal. Atrial Septum A couple of bubbles are noted greater than 5 cardiac cycles after injection and with Valsalva. 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 Intact interatrial septum visualized by color flow imaging. Aortic Valve The aortic valve is trileaflet. There is mild aortic valve sclerosis. There is no aortic valve stenosis. There is trace aortic valve regurgitation. Pulmonic Valve The pulmonic valve is normal. There is no pulmonic valve stenosis. There is trace pulmonic regurgitation. Mitral Valve There is no mitral valve stenosis. There is mild mitral valve regurgitation. The mitral valve annulus is mildly calcified. Tricuspid Valve The tricuspid valve leaflets are normal. There is no significant tricuspid valve stenosis. There is mild tricuspid valve regurgitation. No pulmonary hypertension, estimated pulmonary arterial systolic pressure is 25 mmHg. Pericardium/Pleural The pericardium appears normal. There is no pericardial effusion. Inferior Vena Cava Normal inferior vena cava with >50% collapse upon inspiration consistent with normal right atrial pressure, 10 mmHg. Aorta The aortic root size at the sinus of Valsalva is normal. There is mild aortic atherosclerosis. Left Ventri
[2021-10-03] MEDS: KCL 20 MEQ/SW 100 ML 100 ML 50 MEQ IVPB ×2 (00:35→02:58)
[2021-10-03] MEDS: SODIUM CHLORIDE 0.9% IV 1,000 ML 125 ML IV CONT (04:09)
--- NOTE | 2021-10-03 07:30 | PM.IMPN ---
Progress Note: A&P Assessment and Plan (1) Fall: Qualifiers: Encounter type: initial encounter Qualified Code(s): W19.XXXA - Unspecified fall, initial encounter Code(s): W19.XXXA - Unspecified fall, initial encounter Status: Acute Assessment and Plan: Patient is a 71-year-old woman with a history of mild coronary artery disease per catheterization on December 2020, COPD on DuoNeb treatments, dyslipidemia, history of SVT status post 2 ablation and currently on metoprolol for rate control, who presented to the emergency room after sustaining a fall at home. The patient lives with her sister and her . She has been having increased confusion, trouble with her balance, frequent falls, high anxiety, agitation, and increased shortness of breath over the last few weeks. She was brought to the emergency room secondary to a fall for further evaluation and workup since it was unwitnessed. Initial vitals showed elevated blood pressure 141/73, heart rate 68 beats per minute, increased respiratory rate 25, afebrile, normal oxygenation 96% on room air. Initial labs showed leukocytosis at 11,100, normocytic anemia with a hemoglobin of 10, hematocrit 32%, normal coag panel, hypokalemia at 2.7, elevated creatinine at 1.2, BUN 20, low phosphorus at 2.4, normal LFTs, negative ammonia level, troponin within normal limits x1. Urinalysis showed no signs of UTI only contaminant with many squamous cells. Urine drug screen was positive for benzodiazepines, negative for alcohol, Tylenol overdoses or salicylates. due to the patient's fall and multiple bruises she had multiple x-rays of her elbow, hands, knee, wrist which showed no acute fracture. CT head showed old lacunar infarcts in the right basal ganglia. Cervical CT showed no fracture, moderate cervical spondylosis. CT chest abdomen pelvis with contrast showed no osseous abnormality or acute intra thoracic, abdominal or pelvic process. Moderate emphysema. Cholelithiasis. And a small penetrating atherosclerotic ulcer at the distal descending thoracic aorta. Carotid Doppler showed less than 50% stenosis bilaterally. MRI showed normal aging brain. Patient was admitted into the hospital for further evaluation of her agitation, confusion, and consult to neurology. Neurology evaluated the patient and recommended getting an EEG to rule out seizure activity. I also talked to the neurologist about making adjustments to her medication given her anxiety, confusion and sundowning she has been having. He recommended adding Seroquel 12.5 mg b.i.d.. PT OT have been ordered for further evaluation Will continue monitoring overnight for further confusion episodes. Will keep IV Ativan p.r.n. for agitation or anxiety. talked to the patient's son Pop about the patient's findings and pending EEG results and echocardiogram. Plan for PT/ OT therapy and we will discuss further options tomorrow. Continue monitoring. Appreciate neurology's input. If the patient continues have issues with agitation then I might need to consult the psychiatrist Dr. Gonzalez. (2) Confusion: Code(s): R41.0 - Disorientation, unspecified Status: Acute Assessment and Plan: see above. (3) Hypokalemia: Code(s): E87.6 - Hypokalemia Status: Acute Assessment and Plan: Potassium is 2.7 which was replaced And potassium was 3.1 today. Will give another 40 mEq p.o. of potassium and IV magnesium 2 g. Will recheck labs in the morning. (4) Hypertension: Qualifiers: Hypertension type: essential hypertension Qualified Code(s): I10 - Essential (primary) hypertension Code(s): I10 - Essential (primary) hypertension Status: Chronic Assessment and Plan: patient's blood pressure has been intermittently eleva
[2021-10-03] MEDS: FLUTICASONE/SALMETEROL 115-21 MCG INHALER 1 PUFF 2 PUFF INHALATION (08:14)
[2021-10-03] MEDS: POTASSIUM PHOS/SODIUM PHOS 250 MG TABLET PO (10:08)
[2021-10-03] MEDS: POTASSIUM CHLORIDE 20 MEQ TABLET 40 MEQ PO ×2 (10:08→13:51)
[2021-10-03] MEDS: CLOPIDOGREL BISULFATE 75 MG TABLET PO (10:11)
[2021-10-03] MEDS: FAMOTIDINE 20 MG TABLET PO ×2 (10:11→16:25)
[2021-10-03] MEDS: METOPROLOL TARTRATE 12.5 MG TABLET PO ×2 (10:12→21:44)
[2021-10-03] MEDS: PANTOPRAZOLE 40 MG TABLET PO (10:12)
[2021-10-03] MEDS: FUROSEMIDE 20 MG TABLET PO (10:12)
[2021-10-03] MEDS: ROSUVASTATIN 10 MG TABLET PO (10:13)
[2021-10-03] MEDS: SERTRALINE HCL 25 MG TABLET PO ×2 (10:13→21:44)
[2021-10-03] MEDS: ENOXAPARIN 40 MG/0.4 ML SYRINGE SUB-Q (10:25)
[2021-10-03] MEDS: LORazepam INJ (*CRX) 2 MG/ML VIAL 0.5 MG IV PUSH ×3 (10:56→23:39)
[2021-10-03 11:30] LABS: Basophils Absolute Auto 0.1 K/mm3 (0.0-0.1); Basophils Percent Auto 0.6 % (0.2-1.2); Eosinophils Absolute Auto 0.2 K/mm3 (0-0.3); Eosinophils Percent Auto 1.8 % (0-4.4); Hematocrit 33.4 % (37.0-47.0); Hemoglobin 10.8 g/dL (12.0-15.0); Immature Granulocyte Absolute 0.08 K/mm3 (0.00-0.031); Immature Granulocyte Percent A 0.8 % (0-0.5); Immature Platelet Fraction Pct 14.7 % (0.9-11.2); Lymphocytes Percent Auto 10.5 % (18.3-44.2); Mean Corpuscular HGB Conc 32.3 g/dl (32-36); Mean Corpuscular Hemoglobin 29.9 pg (26-34); Mean Corpuscular Volume 92.5 fl (80-100); Mean Platelet Volume 11.3 fl (7.4-10.4); Monocytes Absolute Auto 0.7 K/mm3 (0.1-0.6); Monocytes Percent Auto 6.5 % (2.6-8.5); Neutrophils Absolute Auto 8.4 K/mm3 (1.3-6.7); Neutrophils Percent Auto 79.8 % (45.5-73.1); Red Blood Count 3.61 M/mm3 (4.2-5.4); Red Cell Distribution Width 14.9 % (11.5-14.5); White Blood Count 10.5 K/mm3 (4.5-10.0)
--- NOTE | 2021-10-03 11:56 | WPDNEURCNPN ---
Assessment and Plan Additional Plan 1. Ongoing dementia 2. Moderate cervical spondylosis 3 atherosclerotic ulcer at the descending distal thoracic aorta number hypokalemia 5. Intermittent hallucination rule out the possibility of seizures Consult date: 10/03/21 HPI: Marcella Hernández is a 71 year old female[facility] where it was reported by the family members that she was talking to the individuals that were not there she thought that her grandson was with sitting on the couch after looking at a picture of him and they also reported she has been having episodes of confusion over the last several weeks she was noted to have multiple bruises and skin tears on both of upper extremities along with the purple bruise over her left eyelid and multiple skin tears to both her arms she had fallen down 14 steps and she also reported that she has fallen several times by the family it was mentioned to the ER physicians that she has several episodes of increasing confusion and L3-1 time was in the garage and was screaming for help at the time of initial evaluation by the hospitalist she was increasingly confused is screaming and had to be given Ativan and Haldol in the emergency room before came to the floor routine lab had documented hemoglobin 10.2 but potassium only 2.7 which was supplemented. She does have ongoing history of COPD, coronary artery disease, hypertension, osteoarthritis of left knee, and osteoporosis. Initial evaluation documented negative x-rays of the elbow hand x-rays with polyarticular osteoarthritis knee x-ray with mild right knee osteoarthritis, CT scan of the head with old lacunar infarct in the right basal ganglia, moderate cervical spondylosis of the cervical spine, moderate emphysema with prominent chronic by epic [place] pleural parenchymal scarring cholelithiasis and sigmoid diverticulosis on chest and abdomen and pelvis CT scan along with small penetrating atherosclerotic ulcer at the distal descending thoracic aorta Review of Systems Review of Systems: All systems reviewed & are unremarkable except as noted in HPI and below [facility] Past Medical History Medical History Anxiety Asthma COPD (chronic obstructive pulmonary disease) Coronary artery disease Hypertension Osteoarthritis of left knee Osteoporosis Surgical History Surgical History H/O Spinal surgery 5, 6, 7 = Nov 2017 Family History Family History Other Unknown family medical history Social History Social History Social History: The patient is listed as a full code. She is listed as currently being a smoker. He is not known how much she drinks Smoking packs per day: 0.5 Smoking cigarettes per day: 10.0 Years smoked: 40 Smoking pack-years: 20.00 Smoking status: Current every day smoker Tobacco type: cigarettes Alcohol intake: never Alcohol use details: Occasional Substance use: never Substance use type: does not use Additional living arrangements comments: Sister & brother in law Gender identity (if verbalized by the patient): Female Spiritual care concerns: No Meds Home Medications and Allergies Home Medications Medication Instructions Recorded Confirmed Type albuterol sulfate 90 mcg/actuation 2 puff INHALATION Q4H PRN 11/24/19 10/02/21 History aerosol inhaler ipratropium 0.5 mg-albuterol 3 mg 3 ml INHALATION Q4H 11/24/19 10/02/21 History (2.5 mg base)/3 mL nebulization soln budesonide-formoterol [Symbicort] 2 puff INHALATION Q12HRT 30 Days 04/02/20 10/02/21 Rx #10.2 gm furosemide 20 mg PO DAILY 01/03/21 10/02/21 History meclizine 6.25 mg PO TID PRN 01/03/21 10/02/21 History rosuvastatin 10 mg PO DAILY 01/03/21 10/02/21 History sertraline 25 mg PO BID
[2021-10-03 12:20] LABS: Platelet Clumps Present; Platelet Estimate Adequate (Adequate)
[2021-10-03 13:02] LABS: Alanine Aminotransferase 9 U/L (4-35); Albumin Level 3.3 g/dL (3.5-5.1); Alkaline Phosphatase 86 U/L (38-126); Anion Gap 11 mmol/L (8-16); Aspartate Amino Transferase 20 U/L (14-36); Bilirubin,Total 0.4 mg/dL (0.2-1.3); Blood Urea Nitrogen 9 mg/dL (7-17); CRP 1.9 mg/dL (<1.0); Calcium 7.6 mg/dL (8.4-10.2); Carbon Dioxide 18 mmol/L (22-30); Chloride 104 mmol/L (98-107); Estimated Glomerular Filt Rate > 60; Glucose 89 mg/dL (65-110); Lactate Dehydrogenase 467 U/L (313-618); Magnesium 1.8 mg/dL (1.6-2.3); Potassium 3.1 mmol/L (3.4-5.0); Sodium 133 mmol/L (137-145)
--- NOTE | 2021-10-03 13:30 | PCNEURO ---
EEG was attempted but unable to complete due to patients confusion and unable to lay still. Will check back on patient condition tomorrow morning.
[2021-10-03] MEDS: MAGNESIUM SULF 2 GM/WATER 50ML 2 GM/50 ML BAG IVPB (13:50)
[2021-10-03] MEDS: ALBUTEROL SULFATE NEB 2.5 MG/0.5 ML INH INHALATION ×2 (14:01→22:02)
[2021-10-03] MEDS: IPRATROPIUM BR 0.02% INH SOLN 0.5 MG/2.5 ML VIAL INHALATION ×2 (14:02→22:02)
--- NOTE | 2021-10-03 15:20 | PCOTNOTE ---
Attempted OT evaluation, despite education on benefits of participating with OT patient reports cannot get out of bed at this time due to being to tired. Will follow and attempt at later time.
[2021-10-03] MEDS: SUCRALFATE 1 GM TABLET PO ×2 (16:25→21:44)
[2021-10-03] MEDS: diphenhydrAMINE HCl INJ 50 MG/ML VIAL 25 MG IV PUSH (21:44)
[2021-10-03] MEDS: QUEtiapine FUMARATE 12.5 MG TABLET PO (21:44)
[2021-10-04] VITALS (13 sets, daily range): BP systolic 118–133; BP diastolic 67–68; PULSE 74–104; RESP 17–20; TEMP 36–37.2; O2SAT 95–97; BMI 17.5
[2021-10-04] MEDS: ALBUTEROL SULFATE NEB 2.5 MG/0.5 ML INH INHALATION ×3 (00:30→15:05)
[2021-10-04] MEDS: IPRATROPIUM BR 0.02% INH SOLN 0.5 MG/2.5 ML VIAL INHALATION ×3 (00:30→15:06)
--- NOTE | 2021-10-04 00:33 | PCRCNOTE ---
pt extremely combative
--- NOTE | 2021-10-04 00:35 | PCRCNOTE ---
pt took nebulizer off and refused treatment senior living through
[2021-10-04] MEDS: diphenhydrAMINE HCl INJ 50 MG/ML VIAL 25 MG IV PUSH (03:49)
--- NOTE | 2021-10-04 04:36 | PCRCNOTE ---
pt unavailable to do treatment- CUT OFF MACHINE OPERATOR cleaning pt up
--- NOTE | 2021-10-04 05:39 | PC.NURSE ---
PT WAS RESTLESS ALL NIGHT DID NOT SLEEP. MULTIPLE NEW SKIN TEARS ON ARMS AND LEGS MEPILEX DRESSINGS APPLIED. WAS UNABLE TO RESTART PT IV FLUIDS DO TO AGITATION AND PICKING AT THE IV SITE.
[2021-10-04 06:26] LABS: Basophils Absolute Auto 0.1 K/mm3 (0.0-0.1); Basophils Percent Auto 0.5 % (0.2-1.2); Eosinophils Absolute Auto 0.2 K/mm3 (0-0.3); Eosinophils Percent Auto 1.9 % (0-4.4); Hemoglobin 10.1 g/dL (12.0-15.0); Immature Granulocyte Absolute 0.07 K/mm3 (0.00-0.031); Immature Granulocyte Percent A 0.6 % (0-0.5); Immature Platelet Fraction Pct 12.5 % (0.9-11.2); Lymphocytes Absolute Auto 0.96 K/mm3 (0.9-3.2); Lymphocytes Percent Auto 8.4 % (18.3-44.2); Mean Corpuscular HGB Conc 31.6 g/dl (32-36); Mean Corpuscular Hemoglobin 30.2 pg (26-34); Mean Corpuscular Volume 95.8 fl (80-100); Monocytes Absolute Auto 0.9 K/mm3 (0.1-0.6); Neutrophils Absolute Auto 9.2 K/mm3 (1.3-6.7); Neutrophils Percent Auto 80.6 % (45.5-73.1); Red Blood Count 3.34 M/mm3 (4.2-5.4); Red Cell Distribution Width 15.2 % (11.5-14.5); White Blood Count 11.4 K/mm3 (4.5-10.0)
[2021-10-04 06:35] LABS: Anion Gap 8 mmol/L (8-16); Blood Urea Nitrogen 11 mg/dL (7-17); Calcium 7.7 mg/dL (8.4-10.2); Carbon Dioxide 19 mmol/L (22-30); Chloride 108 mmol/L (98-107); Estimated Glomerular Filt Rate > 60; Glucose 92 mg/dL (65-110); Magnesium 2.6 mg/dL (1.6-2.3); Potassium 3.3 mmol/L (3.4-5.0); Sodium 135 mmol/L (137-145)
[2021-10-04 09:10] LABS: Platelet Estimate Adequate (Adequate)
[2021-10-04 09:11] LABS: Platelet Clumps Present
--- NOTE | 2021-10-04 09:45 | PCNEURO ---
EEG was attempted again this morning. Family member at bedside and agreed patient would be unable to cooperate enough for the hour it would take to do test.
[2021-10-04] MEDS: POTASSIUM CHLORIDE 20 MEQ TABLET 40 MEQ PO (09:55)
[2021-10-04] MEDS: NICOTINE (*PBKC) 21 MG PATCH 1 PATCH TRANSDERM (09:55)
--- NOTE | 2021-10-04 10:55 | PCRCNOTE ---
Window of time for administration has passed. See next scheduled administration.
[2021-10-04] MEDS: FLUTICASONE/SALMETEROL 115-21 MCG INHALER 1 PUFF 2 PUFF INHALATION ×2 (11:12→20:30)
--- NOTE | 2021-10-04 11:46 | PC.NURSE ---
patient refused to take all medication this morning. multiple attempts were taken. will continue to try throughout the day. Laura REEVES notified
--- NOTE | 2021-10-04 11:58 | PM.IMPN ---
Progress Note: A&P Assessment and Plan (1) Fall: Qualifiers: Encounter type: initial encounter Qualified Code(s): W19.XXXA - Unspecified fall, initial encounter Code(s): W19.XXXA - Unspecified fall, initial encounter Status: Acute Assessment and Plan: Patient is a 71-year-old woman with a history of mild coronary artery disease per catheterization on December 2020, COPD on DuoNeb treatments, dyslipidemia, history of SVT status post 2 ablation and currently on metoprolol for rate control, who presented to the emergency room after sustaining a fall at home. The patient lives with her sister and her . She has been having increased confusion, trouble with her balance, frequent falls, high anxiety, agitation, and increased shortness of breath over the last few weeks. She was brought to the emergency room secondary to a fall for further evaluation and workup since it was unwitnessed. Initial vitals showed elevated blood pressure 141/73, heart rate 68 beats per minute, increased respiratory rate 25, afebrile, normal oxygenation 96% on room air. Initial labs showed leukocytosis at 11,100, normocytic anemia with a hemoglobin of 10, hematocrit 32%, normal coag panel, hypokalemia at 2.7, elevated creatinine at 1.2, BUN 20, low phosphorus at 2.4, normal LFTs, negative ammonia level, troponin within normal limits x1. Urinalysis showed no signs of UTI only contaminant with many squamous cells. Urine drug screen was positive for benzodiazepines, negative for alcohol, Tylenol overdoses or salicylates. due to the patient's fall and multiple bruises she had multiple x-rays of her elbow, hands, knee, wrist which showed no acute fracture. CT head showed old lacunar infarcts in the right basal ganglia. Cervical CT showed no fracture, moderate cervical spondylosis. CT chest abdomen pelvis with contrast showed no osseous abnormality or acute intra thoracic, abdominal or pelvic process. Moderate emphysema. Cholelithiasis. And a small penetrating atherosclerotic ulcer at the distal descending thoracic aorta. Carotid Doppler showed less than 50% stenosis bilaterally. MRI showed normal aging brain. Patient was admitted into the hospital for further evaluation of her agitation, confusion, and consult to neurology. Neurology evaluated the patient and recommended getting an EEG to rule out seizure activity which is pending PT OT have been ordered for further evaluation I called Dr. Gonzalez Psychiastrist about the patient and recommended discontinuing the Seroquel, increasing Zoloft to 50 mg AM and 25 mg HS, Continuing on her home Benzodiazapines but plans to wean her off of them to prevent further falls. He will also come and see her in consultation and appreciate any further recommendations he has. Discussed with the patients family, Daughter, sister and son Pop. We will see about discharge planning to include possible inpatient geripsych vs assisted with hospice vs SNF. Continue monitoring. Appreciate neurology's and psych input and recommendations. (2) Confusion: Code(s): R41.0 - Disorientation, unspecified Status: Acute Assessment and Plan: see above. (3) Hypokalemia: Code(s): E87.6 - Hypokalemia Status: Acute Assessment and Plan: Potassium is 2.7 which was replaced And potassium was 3.3 today. Will give another 40 mEq p.o. of potassium Magnesium was normal. (4) Hypertension: Qualifiers: Hypertension type: essential hypertension Qualified Code(s): I10 - Essential (primary) hypertension Code(s): I10 - Essential (primary) hypertension Status: Chronic Assessment and Plan: Patient's blood pressure has been intermittently elevated most likely secondary to her confusion and anxiety. She is not o
[2021-10-04] MEDS: ALPRAZolam (*CRX) 0.5 MG TABLET PO ×2 (13:00→18:20)
[2021-10-04] MEDS: NYSTATIN 100,000 UNITS/ML SUSP 5 ML ORAL.SUSP PO ×2 (13:54→22:27)
[2021-10-04 14:58] LABS: EDCOVIDSCREEN Negative (Negative)
--- NOTE | 2021-10-04 19:47 | WPDCNPSYCH ---
HPI Data of Consult Date/Time: 10/04/21 19:47 Requesting Physician: Tonie Timmons PA-C Primary Care Provider: Jordan Gay, Consult Narrative Narrative: Attention: When I approached the patient with her nurse and with sister visiting at approximately 7:45 p.m. on Thursday, , the patient refused the interview. She stated she had things to do and that she would contact me by phone later on and that I should leave my business card. She would not even respond to simple questions about orientation. Patient terminated the interview at that point with a plan to return next morning. I had conducted a thorough chart review and had even interviewed the patient's nurse prior to seeing the patient. The patient's sister who was visiting explained to me that earlier in the evening the patient was not recognizing who the sister was. The patient was confused and thought the patient was actually the daughter. She told her sister to go out and play thinking that she was speaking with her daughter. Later however she was able to be reoriented and recognized her sister for who she was. This evaluation is being conducted in the context of a psychiatric emergency as evidenced by the patient refusing to take medications and food. I spoke with the sugar house supervisor. We do not have a restriction of rights form they can be completed prior to my going forward with this evaluation in treatment. However the best interest of the patient we will do so. 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 Although psychosis may be high in the differential diagnosis, confabulation from advanced dementia which may also have a superimposed delirium from multiple medical problems is also a consideration. She was able to be reoriented when she thought that her sister was actually her daughter. Her thinking that she is out to dinner and that someone is going to get her may actually be more of being disoriented to situation rather than having the fixed belief of a delusion of some primary psychotic disorder. As her medical condition optimizes, hopefully she will be better at reality testing and will be able to again eat and take medications. The patient may need to be transferred to a geriatric psychiatry service that has associated tertiary care medical services available. Plan: Increase sertraline from 25mg p.o. b.i.d. to sertraline 50mg p.o. q.a.m.; and, 25mg p.o. q.h.s. 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 Patient was on according to her physician assistant football coach verbal report alprazolam 1mg p.o. t.i.d.. Alprazolam is reduced to 0.5mg p.o. q.i.d.. Olanzapine 2.5mg p.o. q.h.s. might be a good intervention for the target symptom of psychosis and her behavioral features Haldol 0.5 mg p.o. or IM t.i.d. p.r.n. psychosis. Ativan ( lorazepam ) 0.5mg p.o. or IM b.i.d. p.r.n. agitation might be a worthwhile consideration Medical evaluation to include hepatitis panel, serum HIV, serum RPR, and perhaps a repeat urine analysis. Reason for consultation: Patient is a 71-year-old lady whose consultation has been ordered by LALA Rivas for depression, psychosis, and agitation. the patient's physician assistant football coach, nurse, chart, and sister served as historians the patient made only a few comments to me. History of present illness: Patient was admitted to the medical service through the emergency department following a fall at home. She had been having increased confusion, trouble with balance, frequent falls, high anxiety, agitation, and shortness of breath over the past few weeks. The patient's physician assistant football coach reported that the patient has advanced dementia and can no longer rec
[2021-10-04] MEDS: METOPROLOL TARTRATE 12.5 MG TABLET PO (22:27)
[2021-10-04] MEDS: SUCRALFATE 1 GM TABLET PO (22:27)
[2021-10-04] MEDS: SERTRALINE HCL 25 MG TABLET PO (22:28)
[2021-10-04 22:57] LABS: HIV 1/2 Ab P24 Ag Result Negative (Negative)
[2021-10-04 23:14] LABS: Hepatitis B Surface Antigen Negative (Negative)
[2021-10-04 23:20] LABS: HAV RESULT Negative (Negative); Hepatitis B Core IgM Result Negative (Negative)
[2021-10-04 23:32] LABS: Hepatitis C Virus Antibody Negative (Negative)
[2021-10-05] VITALS (10 sets, daily range): BP systolic 122–152; BP diastolic 63–84; PULSE 70–98; RESP 14–20; TEMP 36.4–37.1; O2SAT 95–100
[2021-10-05] MEDS: LORazepam INJ (*CRX) 2 MG/ML VIAL 0.5 MG IM
[2021-10-05] MEDS: ALBUTEROL SULFATE (*SP) AEROSOL 1 PUFF 2 PUFF INHALATION (00:16)
[2021-10-05 05:53] LABS: Basophils Percent Auto 0.3 % (0.2-1.2); Eosinophils Absolute Auto 0.4 K/mm3 (0-0.3); Eosinophils Percent Auto 3.9 % (0-4.4); Hemoglobin 9.6 g/dL (12.0-15.0); Immature Granulocyte Absolute 0.06 K/mm3 (0.00-0.031); Immature Granulocyte Percent A 0.6 % (0-0.5); Lymphocytes Absolute Auto 0.91 K/mm3 (0.9-3.2); Lymphocytes Percent Auto 9.6 % (18.3-44.2); Mean Corpuscular Volume 93.8 fl (80-100); Mean Platelet Volume 10.3 fl (7.4-10.4); Monocytes Absolute Auto 0.9 K/mm3 (0.1-0.6); Monocytes Percent Auto 8.9 % (2.6-8.5); Neutrophils Absolute Auto 7.3 K/mm3 (1.3-6.7); Neutrophils Percent Auto 76.7 % (45.5-73.1); Platelet Count Result 197 k/mm3 (150-375); Red Cell Distribution Width 15.3 % (11.5-14.5); White Blood Count 9.5 K/mm3 (4.5-10.0)
[2021-10-05 06:07] LABS: Anion Gap 9 mmol/L (8-16); Blood Urea Nitrogen 13 mg/dL (7-17); Calcium 7.7 mg/dL (8.4-10.2); Carbon Dioxide 18 mmol/L (22-30); Chloride 110 mmol/L (98-107); Estimated CRCL calculation 46 ml/min; Estimated Glomerular Filt Rate > 60; Glucose 111 mg/dL (65-110); Sodium 137 mmol/L (137-145)
[2021-10-05] MEDS: ASPIRIN 81 MG ENTERIC TABLET PO (08:17)
[2021-10-05] MEDS: FUROSEMIDE 20 MG TABLET PO (08:17)
[2021-10-05] MEDS: FAMOTIDINE 20 MG TABLET PO (08:17)
[2021-10-05] MEDS: OLANZapine 2.5 MG TABLET PO (08:18)
[2021-10-05] MEDS: SERTRALINE HCL 50 MG TABLET PO (08:18)
[2021-10-05] MEDS: LORazepam (*CRX) 0.5 MG TABLET PO ×4 (08:18→21:54)
[2021-10-05] MEDS: METOPROLOL TARTRATE 12.5 MG TABLET PO ×2 (08:18→21:54)
[2021-10-05] MEDS: PANTOPRAZOLE 40 MG TABLET PO ×2 (08:18→21:54)
[2021-10-05] MEDS: ROSUVASTATIN 10 MG TABLET PO (08:18)
[2021-10-05] MEDS: NICOTINE (*PBKC) 21 MG PATCH 1 PATCH TRANSDERM (08:19)
[2021-10-05] MEDS: NYSTATIN 100,000 UNITS/ML SUSP 5 ML ORAL.SUSP PO ×4 (08:19→21:55)
[2021-10-05] MEDS: POTASSIUM CHLORIDE 20 MEQ PACKET (FOR LIQUID) 40 MEQ PO ×2 (08:54→17:14)
--- NOTE | 2021-10-05 10:25 | PM.IMPN ---
Progress Note: A&P Assessment and Plan (1) Fall: Qualifiers: Encounter type: initial encounter Qualified Code(s): W19.XXXA - Unspecified fall, initial encounter Code(s): W19.XXXA - Unspecified fall, initial encounter Status: Acute Assessment and Plan: Patient is a 71-year-old woman with a history of mild coronary artery disease per catheterization on December 2020, COPD on DuoNeb treatments, dyslipidemia, history of SVT status post 2 ablation and currently on metoprolol for rate control, who presented to the emergency room after sustaining a fall at home. The patient lives with her sister and her . She has been having increased confusion, trouble with her balance, frequent falls, high anxiety, agitation, and increased shortness of breath over the last few weeks. She was brought to the emergency room secondary to a fall for further evaluation and workup since it was unwitnessed. Initial vitals showed elevated blood pressure 141/73, heart rate 68 beats per minute, increased respiratory rate 25, afebrile, normal oxygenation 96% on room air. Initial labs showed leukocytosis at 11,100, normocytic anemia with a hemoglobin of 10, hematocrit 32%, normal coag panel, hypokalemia at 2.7, elevated creatinine at 1.2, BUN 20, low phosphorus at 2.4, normal LFTs, negative ammonia level, troponin within normal limits x1. Urinalysis showed no signs of UTI only contaminant with many squamous cells. Urine drug screen was positive for benzodiazepines, negative for alcohol, Tylenol overdoses or salicylates. due to the patient's fall and multiple bruises she had multiple x-rays of her elbow, hands, knee, wrist which showed no acute fracture. CT head showed old lacunar infarcts in the right basal ganglia. Cervical CT showed no fracture, moderate cervical spondylosis. CT chest abdomen pelvis with contrast showed no osseous abnormality or acute intra thoracic, abdominal or pelvic process. Moderate emphysema. Cholelithiasis. And a small penetrating atherosclerotic ulcer at the distal descending thoracic aorta. Carotid Doppler showed less than 50% stenosis bilaterally. MRI showed normal aging brain. Patient was admitted into the hospital for further evaluation of her agitation, confusion, and consult to neurology. Neurology evaluated the patient and recommended getting an EEG to rule out seizure activity which is pending PT OT have been ordered for further evaluation I called Dr. Gonzalez Psychiastrist about the patient and recommended discontinuing the Seroquel, increasing Zoloft to 50 mg AM and 25 mg HS, Continuing on her home Benzodiazapines but plans to wean her off of them to prevent further falls, Alprazolam 0.5 mg QID, Olanzapine 2.5 mg HS, Haldol as needed for psychosis and Ativan as needed for benzo withdrawal. The patient is doing much better today. Talked to Dr. Gonzalez who is not going to make any further medication adjustments at this time and will continue to monitor. Patient maybe able to be discharged home with home health vs SNF placement if she continues to do well on her medications. Will talk with family. Continue monitoring. Appreciate neurology's and psych input and recommendations. (2) Confusion: Code(s): R41.0 - Disorientation, unspecified Status: Acute Assessment and Plan: see above. (3) Hypokalemia: Code(s): E87.6 - Hypokalemia Status: Acute Assessment and Plan: Potassium is 2.7 which was replaced and potassium was 3.0 today. Will give another 40 mEq p.o. BID scheduled Magnesium was normal. (4) Hypertension: Qualifiers: Hypertension type: essential hypertension Qualified Code(s): I10 - Essential (primary) hypertension Code(s): I10 - Essential (primary) hypertension Status: Chroni
--- NOTE | 2021-10-05 11:02 | WPDPNPSYCH ---
Objective Data Vital Signs Vital Signs: Vital Signs - 24 hr 10/04/21 11:16 10/04/21 11:28 10/04/21 12:00 Temperature Pulse Rate 96 92 98 Respiratory Rate 20 20 Blood Pressure Pulse Oximetry 10/04/21 14:05 10/04/21 15:06 10/04/21 15:12 Temperature 99.0 F Pulse Rate 104 H 96 100 Respiratory Rate 20 20 20 Blood Pressure 133/68 Pulse Oximetry 97 10/04/21 22:00 10/04/21 22:27 10/05/21 05:00 Temperature 96.8 F L 97.6 F Pulse Rate 98 100 87 Respiratory Rate 17 20 Blood Pressure 118/67 122/63 Pulse Oximetry 95 95 10/05/21 08:18 Temperature Pulse Rate 70 Respiratory Rate Blood Pressure Pulse Oximetry Intake/Output Intake/Output: Intake & Output 10/02/21 10/03/21 10/04/21 10/05/21 23:59 23:59 23:59 23:59 Intake Total 1000 2070 502 560 Output Total 1000 Balance 1000 1070 502 560 Meds/Results Medications: Active Medications Generic Name Dose Route Start Last Admin Trade Name Freq PRN Reason Stop Dose Admin Albuterol 2 puff 10/03/21 07:31 10/05/21 00:16 Albuterol Sulfate (*Sp) Aerosol 1 Puff INHALATION 2 puff Q4H PRN Administration Bronchospasm Albuterol 2.5 mg 10/03/21 12:00 10/05/21 05:53 Albuterol Sulfate Neb 2.5 Mg/0.5 Ml Inh INHALATION Not Given Q4HRT ALTA Aspirin 81 mg 10/04/21 09:00 10/05/21 08:17 Aspirin 81 Mg Enteric Tablet PO 81 mg QAM ALTA Administration Diphenhydramine HCl 25 mg 10/02/21 16:50 10/04/21 03:49 Diphenhydramine Hcl Inj 50 Mg/Ml Vial IV PUSH 25 mg Q4H PRN Administration Itching Enoxaparin Sodium 40 mg 10/03/21 09:00 10/05/21 08:17 Enoxaparin 40 Mg/0.4 Ml Syringe SUB-Q Not Given DAILY ALTA Famotidine 20 mg 10/03/21 09:00 10/05/21 08:17 Famotidine 20 Mg Tablet PO 20 mg BID ALTA Administration Furosemide 20 mg 10/03/21 09:00 10/05/21 08:17 Furosemide 20 Mg Tablet PO 20 mg DAILY ALTA Administration Haloperidol 0.5 mg 10/04/21 21:04 Haloperidol 0.5 Mg Tablet PO BID PRN Psychosis Haloperidol Lactate 0.5 mg 10/04/21 21:04 Haloperidol Lactate 5 Mg/Ml Vial IM BID PRN Psychosis Hydralazine HCl 10 mg 10/03/21 07:36 Hydralazine Hcl 20 Mg/Ml Vial IV PUSH Q8H PRN Blood Pressure - High Ipratropium [place] 0.5 mg 10/03/21 12:00 10/05/21 05:53 Ipratropium Br 0.02% Inh Soln 0.5 Mg/2.5 Ml Vial INHALATION Not Given Q4HRT ALTA Lorazepam 0.5 mg 10/04/21 21:04 Lorazepam (*Crx) 0.5 Mg Tablet PO BID PRN Agitation Lorazepam 0.5 mg 10/04/21 21:04 10/05/21 00:00 Lorazepam Inj (*Crx) 2 Mg/Ml Vial IM 0.5 mg BID PRN Administration Agitation Lorazepam 0.5 mg 10/05/21 09:00 10/05/21 08:18 Lorazepam (*Crx) 0.5 Mg Tablet PO 0.5 mg QID ALTA Administration Lorazepam 0.5 mg 10/05/21 02:53 Lorazepam (*Crx) 0.5 Mg Tablet PO Q4H PRN Hypertension or Tachycardia Lorazepam 0.5 mg 10/05/21 02:55 Lorazepam Inj (*Crx) 2 Mg/Ml Vial IM Q4H PRN Hypertension or Tachycardia Meclizine HCl 6.25 mg 10/03/21 07:31 Meclizine Hcl 6.25 Mg Tablet PO TID PRN Dizziness Metoprolol Tartrate 12.5 mg 10/03/21 09:00 10/05/21 08:18 Metoprolol Tartrate 12.5 Mg Tablet PO 12.5 mg Q12HR ALTA Administration Nicotine 1 patch 10/04/21 09:00 10/05/21 08:19 Nicotine (*Pbkc) 21 Mg Patch TRANSDERM 1 patch QAM ALTA Administration Nystatin 5 ml 10/04/21 13:00 10/05/21 08:19 Nystatin 100,000 Units/Ml Susp 5 Ml Oral.Susp PO 5 ml QID ALTA Administration Olanzapine 2.5 mg 10/05/21 09:00 10/05/21 08:18 Olanzapine 2.5 Mg Tablet PO 2.5 mg QAM ALTA Administration Pantoprazole Sodium 40 mg 10/03/21 09:00 10/05/21 08:18 Pantoprazole 40 Mg Tablet PO 40 mg QAM ALTA Administration Potassium Chloride 40 meq 10/05/21 09:00 10/05/21 08:54 Potassium Chloride 20 Meq Packet (For Liquid) PO 40 meq BID ALTA Administration Rosuvastatin
[2021-10-05] MEDS: IPRATROPIUM BR 0.02% INH SOLN 0.5 MG/2.5 ML VIAL INHALATION (12:26)
[2021-10-05] MEDS: ALBUTEROL SULFATE NEB 2.5 MG/0.5 ML INH INHALATION (12:27)
[2021-10-05] MEDS: SUCRALFATE 1 GM TABLET PO ×3 (12:29→21:53)
[2021-10-05] MEDS: FLUTICASONE/SALMETEROL 115-21 MCG INHALER 1 PUFF 2 PUFF INHALATION (21:05)
[2021-10-05] MEDS: SERTRALINE HCL 25 MG TABLET PO (21:53)
[2021-10-06] VITALS (14 sets, daily range): BP systolic 105–141; BP diastolic 54–71; PULSE 63–89; RESP 14–20; TEMP 36–37.1; O2SAT 93–98
[2021-10-06] MEDS: LORazepam INJ (*CRX) 2 MG/ML VIAL 0.5 MG IM (01:18)
[2021-10-06 06:00] LABS: Hematocrit 32.2 % (37.0-47.0)
[2021-10-06] MEDS: SUCRALFATE 1 GM TABLET PO ×4 (06:00→20:32)
--- NOTE | 2021-10-06 06:00 | PC.NURSE ---
called respiratory about missed nebulizer treatments overnight. Per Quin Mauricio and KARENA stated that patient did receive her treatments overnight and they must not have scanned. They will correct this to reflect in the MAR
[2021-10-06 06:20] LABS: Anion Gap 8 mmol/L (8-16); Blood Urea Nitrogen 13 mg/dL (7-17); Calcium 7.6 mg/dL (8.4-10.2); Carbon Dioxide 19 mmol/L (22-30); Chloride 111 mmol/L (98-107); Estimated CRCL calculation 46 ml/min; Estimated Glomerular Filt Rate > 60; Glucose 100 mg/dL (65-110); Magnesium 2.1 mg/dL (1.6-2.3); Potassium 3.2 mmol/L (3.4-5.0); Sodium 138 mmol/L (137-145)
--- NOTE | 2021-10-06 08:55 | PCOTNOTE ---
Attempted to see pt for occupational therapy tx this AM, pt was pleasantly confused asking where the kitchen table was. When pt was oriented to place and purpose of therapy, pt declined to participate stating that she would prefer to complete self care tasks with her sister/daughter here and is more worried about finding her items she lost and getting her cup of coffee. Pt declined to complete any therapeutic activities/exercises also at this time. If therapist is able to, pt will be attempted later today if available. RN was made aware of pt's refusal. Will continue per POC duration/frequency tomorrow.
[2021-10-06] MEDS: NICOTINE (*PBKC) 21 MG PATCH 1 PATCH TRANSDERM (09:23)
[2021-10-06] MEDS: NYSTATIN 100,000 UNITS/ML SUSP 5 ML ORAL.SUSP PO ×3 (09:23→20:32)
[2021-10-06] MEDS: PANTOPRAZOLE 40 MG TABLET PO ×2 (09:24→20:31)
[2021-10-06] MEDS: ROSUVASTATIN 10 MG TABLET PO (09:24)
[2021-10-06] MEDS: METOPROLOL TARTRATE 12.5 MG TABLET PO ×2 (09:24→20:31)
[2021-10-06] MEDS: OLANZapine 2.5 MG TABLET PO (09:24)
[2021-10-06] MEDS: ASPIRIN 81 MG ENTERIC TABLET PO (09:24)
[2021-10-06] MEDS: SERTRALINE HCL 50 MG TABLET PO (09:24)
[2021-10-06] MEDS: LORazepam (*CRX) 0.5 MG TABLET PO ×4 (09:24→20:31)
[2021-10-06] MEDS: POTASSIUM CHLORIDE 20 MEQ PACKET (FOR LIQUID) 40 MEQ PO ×2 (09:25→18:02)
[2021-10-06] MEDS: POTASSIUM CHLORIDE 20 MEQ PACKET (FOR LIQUID) PO (09:28)
--- NOTE | 2021-10-06 11:12 | PCRCNOTE ---
Window of time for administration has passed. See next scheduled administration.
--- NOTE | 2021-10-06 11:17 | WPDPNPSYCH ---
Objective Data Vital Signs Vital Signs: Vital Signs - 24 hr 10/05/21 12:00 10/05/21 12:25 10/05/21 12:31 Temperature 97.7 F Pulse Rate 88 87 90 Respiratory Rate 14 20 20 Blood Pressure 132/68 Pulse Oximetry 100 10/05/21 16:00 10/05/21 20:00 10/05/21 20:40 Temperature 98.1 F 98.8 F Pulse Rate 93 98 90 Respiratory Rate 14 18 20 Blood Pressure 152/84 H 146/78 H Pulse Oximetry 99 98 10/05/21 20:50 10/05/21 21:54 10/06/21 00:00 Temperature 97.5 F L Pulse Rate 92 92 63 Respiratory Rate 20 20 Blood Pressure 141/71 H Pulse Oximetry 94 10/06/21 00:56 10/06/21 04:00 10/06/21 08:00 Temperature 96.8 F L 98.8 F Pulse Rate 88 85 79 Respiratory Rate 20 16 14 Blood Pressure 123/63 105/54 L Pulse Oximetry 96 96 10/06/21 09:24 Temperature Pulse Rate 84 Respiratory Rate Blood Pressure Pulse Oximetry Intake/Output Intake/Output: Intake & Output 10/03/21 10/04/21 10/05/21 10/06/21 23:59 23:59 23:59 23:59 Intake Total 2070 502 800 240 Output Total 1000 Balance 1070 502 800 240 Meds/Results Medications: Active Medications Generic Name Dose Route Start Last Admin Trade Name Freq PRN Reason Stop Dose Admin Albuterol 2 puff 10/03/21 07:31 10/05/21 00:16 Albuterol Sulfate (*Sp) Aerosol 1 Puff INHALATION 2 puff Q4H PRN Administration Bronchospasm Albuterol 2.5 mg 10/03/21 12:00 10/06/21 11:10 Albuterol Sulfate Neb 2.5 Mg/0.5 Ml Inh INHALATION Not Given Q4HRT ATLA Aspirin 81 mg 10/04/21 09:00 10/06/21 09:24 Aspirin 81 Mg Enteric Tablet PO 81 mg QAM ALTA Administration Diphenhydramine HCl 25 mg 10/02/21 16:50 10/04/21 03:49 Diphenhydramine Hcl Inj 50 Mg/Ml Vial IV PUSH 25 mg Q4H PRN Administration Itching Enoxaparin Sodium 40 mg 10/03/21 09:00 10/06/21 09:25 Enoxaparin 40 Mg/0.4 Ml Syringe SUB-Q Not Given DAILY ALTA Furosemide 20 mg 10/06/21 07:30 Furosemide 20 Mg Tablet PO DAILY PRN leg swelling Haloperidol 0.5 mg 10/04/21 21:04 Haloperidol 0.5 Mg Tablet PO BID PRN Psychosis Haloperidol Lactate 0.5 mg 10/04/21 21:04 Haloperidol Lactate 5 Mg/Ml Vial IM BID PRN Psychosis Hydralazine HCl 10 mg 10/03/21 07:36 Hydralazine Hcl 20 Mg/Ml Vial IV PUSH Q8H PRN Blood Pressure - High Ipratropium [place] 0.5 mg 10/03/21 12:00 10/05/21 17:35 Ipratropium Br 0.02% Inh Soln 0.5 Mg/2.5 Ml Vial INHALATION Not Given Q4HRT ALTA Lorazepam 0.5 mg 10/04/21 21:04 Lorazepam (*Crx) 0.5 Mg Tablet PO BID PRN Agitation Lorazepam 0.5 mg 10/04/21 21:04 10/06/21 01:18 Lorazepam Inj (*Crx) 2 Mg/Ml Vial IM 0.5 mg BID PRN Administration Agitation Lorazepam 0.5 mg 10/05/21 09:00 10/06/21 09:24 Lorazepam (*Crx) 0.5 Mg Tablet PO 0.5 mg QID ALTA Administration Lorazepam 0.5 mg 10/05/21 02:53 Lorazepam (*Crx) 0.5 Mg Tablet PO Q4H PRN Hypertension or Tachycardia Lorazepam 0.5 mg 10/05/21 02:55 Lorazepam Inj (*Crx) 2 Mg/Ml Vial IM Q4H PRN Hypertension or Tachycardia Meclizine HCl 6.25 mg 10/03/21 07:31 Meclizine Hcl 6.25 Mg Tablet PO TID PRN Dizziness Metoprolol Tartrate 12.5 mg 10/03/21 09:00 10/06/21 09:24 Metoprolol Tartrate 12.5 Mg Tablet PO 12.5 mg Q12HR ALTA Administration Nicotine 1 patch 10/04/21 09:00 10/06/21 09:23 Nicotine (*Pbkc) 21 Mg Patch TRANSDERM 1 patch QAM ALTA Administration Nystatin 5 ml 10/04/21 13:00 10/06/21 09:23 Nystatin 100,000 Units/Ml Susp 5 Ml Oral.Susp PO 5 ml QID ALTA Administration Olanzapine 2.5 mg 10/05/21 09:00 10/06/21 09:24 Olanzapine 2.5 Mg Tablet PO 2.5 mg QAM ALTA Administration Pantoprazole Sodium 40 mg 10/05/21 21:00 10/06/21 09:24 Pantoprazole 40 Mg Tablet PO 40 mg Q12HR ALTA Administration Potassium Chloride 40 meq 10/05/21 09:00 10/06/21 09:25 Potassium Chloride 20 Meq Packet
[2021-10-06] MEDS: ALBUTEROL SULFATE NEB 2.5 MG/0.5 ML INH INHALATION ×3 (11:26→21:26)
[2021-10-06] MEDS: IPRATROPIUM BR 0.02% INH SOLN 0.5 MG/2.5 ML VIAL INHALATION ×3 (11:26→21:25)
[2021-10-06] MEDS: FLUTICASONE/SALMETEROL 115-21 MCG INHALER 1 PUFF 2 PUFF INHALATION ×2 (11:28→21:26)
--- NOTE | 2021-10-06 11:29 | PM.IMPN ---
Progress Note: A&P Assessment and Plan (1) Fall: Qualifiers: Encounter type: initial encounter Qualified Code(s): W19.XXXA - Unspecified fall, initial encounter Code(s): W19.XXXA - Unspecified fall, initial encounter Status: Acute Assessment and Plan: Patient is a 71-year-old woman with a history of mild coronary artery disease per catheterization on December 2020, COPD on DuoNeb treatments, dyslipidemia, history of SVT status post 2 ablation and currently on metoprolol for rate control, who presented to the emergency room after sustaining a fall at home. The patient lives with her sister and her . She has been having increased confusion, trouble with her balance, frequent falls, high anxiety, agitation, and increased shortness of breath over the last few weeks. She was brought to the emergency room secondary to a fall for further evaluation and workup since it was unwitnessed. Initial vitals showed elevated blood pressure 141/73, heart rate 68 beats per minute, increased respiratory rate 25, afebrile, normal oxygenation 96% on room air. Initial labs showed leukocytosis at 11,100, normocytic anemia with a hemoglobin of 10, hematocrit 32%, normal coag panel, hypokalemia at 2.7, elevated creatinine at 1.2, BUN 20, low phosphorus at 2.4, normal LFTs, negative ammonia level, troponin within normal limits x1. Urinalysis showed no signs of UTI only contaminant with many squamous cells. Urine drug screen was positive for benzodiazepines, negative for alcohol, Tylenol overdoses or salicylates. due to the patient's fall and multiple bruises she had multiple x-rays of her elbow, hands, knee, wrist which showed no acute fracture. CT head showed old lacunar infarcts in the right basal ganglia. Cervical CT showed no fracture, moderate cervical spondylosis. CT chest abdomen pelvis with contrast showed no osseous abnormality or acute intra thoracic, abdominal or pelvic process. Moderate emphysema. Cholelithiasis. And a small penetrating atherosclerotic ulcer at the distal descending thoracic aorta. Carotid Doppler showed less than 50% stenosis bilaterally. MRI showed normal aging brain. Patient was admitted into the hospital for further evaluation of her agitation, confusion, and consult to neurology. Neurology evaluated the patient and recommended getting an EEG to rule out seizure activity which is pending PT OT have been ordered for further evaluation I called Dr. Gonzalez Psychiastrist and will continue to current regimen which is: Zoloft to 50 mg AM and 25 mg HS Lorazapam 0.5 mg QID Olanzapine 2.5 mg HS Haldol as needed for psychosis and Ativan as needed for benzo withdrawal. The patient is doing much better today. Talked to Dr. Gonzalez who is not going to make any further medication adjustments at this time and recommends following up with him as an outpatient 10/22/21, as he only has outpatient appointments Thursday afternoons. Will continue to have patient work with therapy and decided best placement options. Patient maybe able to be discharged home with home health vs SNF placement if she continues to do well on her medications. Continue monitoring. Appreciate neurology's and psych input and recommendations. (2) Confusion: Code(s): R41.0 - Disorientation, unspecified Status: Acute Assessment and Plan: see above. (3) Hypokalemia: Code(s): E87.6 - Hypokalemia Status: Acute Assessment and Plan: Potassium is 2.7 which was replaced and potassium was 3.2 today. Will give another 40 mEq p.o. BID scheduled Magnesium was normal. (4) Hypertension: Qualifiers: Hypertension type: essential hypertension Qualified Code(s): I10 - Essential (primary) hypertension Code(s): I10 - Essential (primary) hy
[2021-10-06 14:17] LABS: Add Urine Microscopic? YES; Appearance Urine Cloudy (Clear); Bilirubin Urine Negative (Negative); Blood Urine 1+ (Negative); Color Urine Amber (Yellow); Glucose Urine UA Negative (Negative); Ketones Urine Negative (Negative); Leukocyte Esterase Ur Negative LEU/UL (Negative); Mucus Urine Heavy /lpf; Nitrate Urine Negative (Negative); Protein Urine 1+ mg/dL (Negative); Specific Grav Ur 1.018 (1.001-1.035); Squamous Epithelial Cell Urine Many /hpf (Few); WBC Urine 0-3 /hpf
[2021-10-06] MEDS: SERTRALINE HCL 25 MG TABLET PO (20:32)
[2021-10-07] VITALS (15 sets, daily range): BP systolic 107–125; BP diastolic 65–88; PULSE 75–94; RESP 16–20; TEMP 36.3–37.3; O2SAT 95–98
[2021-10-07] MEDS: IPRATROPIUM BR 0.02% INH SOLN 0.5 MG/2.5 ML VIAL INHALATION ×5 (01:20→22:38)
[2021-10-07] MEDS: ALBUTEROL SULFATE NEB 2.5 MG/0.5 ML INH INHALATION ×5 (01:20→22:38)
[2021-10-07 06:27] LABS: Anion Gap 8 mmol/L (8-16); Blood Urea Nitrogen 15 mg/dL (7-17); Calcium 7.6 mg/dL (8.4-10.2); Carbon Dioxide 20 mmol/L (22-30); Chloride 110 mmol/L (98-107); Estimated CRCL calculation 46 ml/min; Estimated Glomerular Filt Rate > 60; Glucose 85 mg/dL (65-110); Potassium 3.1 mmol/L (3.4-5.0); Sodium 138 mmol/L (137-145)
[2021-10-07] MEDS: SUCRALFATE 1 GM TABLET PO ×3 (06:35→20:08)
[2021-10-07] MEDS: NYSTATIN 100,000 UNITS/ML SUSP 5 ML ORAL.SUSP PO ×4 (09:58→20:08)
[2021-10-07] MEDS: ENOXAPARIN 40 MG/0.4 ML SYRINGE SUB-Q (09:58)
[2021-10-07] MEDS: LORazepam (*CRX) 0.5 MG TABLET PO ×5 (09:59→20:08)
[2021-10-07] MEDS: METOPROLOL TARTRATE 12.5 MG TABLET PO ×2 (09:59→20:08)
[2021-10-07] MEDS: OLANZapine 2.5 MG TABLET PO (09:59)
[2021-10-07] MEDS: ROSUVASTATIN 10 MG TABLET PO (09:59)
[2021-10-07] MEDS: ASPIRIN 81 MG ENTERIC TABLET PO (09:59)
[2021-10-07] MEDS: POTASSIUM CHLORIDE 20 MEQ TABLET 60 MEQ PO (10:00)
[2021-10-07] MEDS: SERTRALINE HCL 50 MG TABLET PO (10:00)
[2021-10-07] MEDS: PANTOPRAZOLE 40 MG TABLET PO ×2 (10:00→20:07)
[2021-10-07 10:25] LABS: Rapid Plasma Reagin Non-Reactive (NonReactive)
--- NOTE | 2021-10-07 11:02 | WPDNEUROPN ---
Progress Note: A&P Additional Plan stable with no focal neurological abnormality on MRI treatment will be continued as such Time Spent With Patient Time with patient: less than 15 minutes Subjective Date/time seen: 10/07/21 11:02 71 years old lady with ongoing history of 1. Dementia 2. Moderate cervical spondylosis 3. 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 Intermittent hallucination with the possibility of seizures, evaluation documented normal aging brain, normal Doppler study of the carotids, CT of the chest with moderate emphysema and chronic biapical pleural parenchymal scarring in addition to cholelithiasis and sigmoid diverticulosis, CBC without leukocytosis and hemoglobin of 10 point, normal BMP except potassium of 3.1 UA slightly abnormal, patient has already been seen by the psychiatrist as well and the treatment is being continued Review of Systems Review of Systems: All systems reviewed & are unremarkable except as noted in HPI and below Objective Data Vital Signs Vital Signs: Vital Signs - 24 hr 10/06/21 11:28 10/06/21 11:29 10/06/21 11:39 Temperature Pulse Rate 76 80 Respiratory Rate 18 18 Blood Pressure Pulse Oximetry 93 10/06/21 15:01 10/06/21 17:20 10/06/21 17:30 Temperature 36.8 C Pulse Rate 89 78 76 Respiratory Rate 14 20 18 Blood Pressure 136/66 Pulse Oximetry 98 10/06/21 20:00 10/06/21 20:31 10/06/21 21:26 Temperature 36.2 C L Pulse Rate 85 80 80 Respiratory Rate 18 20 Blood Pressure 114/56 L Pulse Oximetry 96 98 10/07/21 00:00 10/07/21 01:21 10/07/21 04:00 Temperature 36.5 C 36.5 C Pulse Rate 85 81 93 Respiratory Rate 18 18 18 Blood Pressure 125/88 121/68 Pulse Oximetry 96 95 10/07/21 08:21 10/07/21 09:58 10/07/21 09:59 Temperature 36.3 C L Pulse Rate 90 75 Respiratory Rate 18 Blood Pressure 111/65 Pulse Oximetry 97 97 Intake/Output Intake/Output: Intake & Output 10/04/21 10/05/21 10/06/21 10/07/21 23:59 23:59 23:59 23:59 Intake Total 502 800 240 120 Output Total 100 Balance 502 800 140 120 Meds/Results Medications: Active Medications Generic Name Dose Route Start Last Admin Trade Name Freq PRN Reason Stop Dose Admin Albuterol 2 puff 10/03/21 07:31 10/05/21 00:16 Albuterol Sulfate (*Sp) Aerosol 1 Puff INHALATION 2 puff Q4H PRN Administration Bronchospasm Albuterol 2.5 mg 10/03/21 12:00 10/07/21 08:20 Albuterol Sulfate Neb 2.5 Mg/0.5 Ml Inh INHALATION 2.5 mg Q4HRT ALTA Administration Aspirin 81 mg 10/04/21 09:00 10/07/21 09:59 Aspirin 81 Mg Enteric Tablet PO 81 mg QAM ALTA Administration Diphenhydramine HCl 25 mg 10/02/21 16:50 10/04/21 03:49 Diphenhydramine Hcl Inj 50 Mg/Ml Vial IV PUSH 25 mg Q4H PRN Administration Itching Enoxaparin Sodium 40 mg 10/03/21 09:00 10/07/21 09:58 Enoxaparin 40 Mg/0.4 Ml Syringe SUB-Q 40 mg DAILY ALTA Administration Furosemide 20 mg 10/06/21 07:30 Furosemide 20 Mg Tablet PO DAILY PRN leg swelling Haloperidol 0.5 mg 10/04/21 21:04 Haloperidol 0.5 Mg Tablet PO BID PRN Psychosis Haloperidol Lactate 0.5 mg 10/04/21 21:04 Haloperidol Lactate 5 Mg/Ml Vial IM BID PRN Psychosis Hydralazine HCl 10 mg 10/03/21 07:36 Hydralazine Hcl 20 Mg/Ml Vial IV PUSH Q8H PRN Blood Pressure - High Ipratropium [place] 0.5 mg 10/03/21 12:00 10/07/21 08:20 Ipratropium Br 0.02% Inh Soln 0.5 Mg/2.5 Ml Vial INHALATION 0.5 mg Q4HRT ALTA Administration Lorazepam 0.5 mg 10/04/21 21:04 10/07/21 10:00 Lorazepam (*Crx) 0.5 Mg Tablet PO 0.5 mg BID PRN Administration Agitation Lorazepam 0.5 mg 10/04/21 21:04 10/06/21 01:18 Lorazepam Inj (*Crx) 2 Mg/Ml Vial IM 0.5 mg BID PRN Administration Agitation Lorazepam 0.5 mg 10/05/21 09:00 10/07/21 09:59 Lorazepam (*Crx) 0.5 Mg Tablet PO 0.5 mg QID ALTA Administration Lo
--- NOTE | 2021-10-07 11:40 | PCNFU ---
Nutrition Follow-Up Complete: Inadequate Oral Intake as related to Dementia as evidenced by poor po intake. goal: Meet estimated nutritional needs patient is progressing towards goal. We will continue current goal. Pt current nutrition is Regular with Ensure compact BID Last recorded weight is 45 kg Bowel Motility:+BM reported 10/04 Labs Reviewed:K 3.1 Meds Noted:Ativan,Atrovent, Protonix, Zoloft, Crestor, Carafate. Skin:WNL Additional Notes: Patient remains on a regular diet. Oral intake improved today 40% of tray for breakfast. Neurology and Psych have both been consulted. Patient still remains confused. Agree with diet orders. Monitoring :Will monitor every 3 days.
--- NOTE | 2021-10-07 12:16 | PM.IMPN ---
Progress Note: A&P Assessment and Plan (1) Fall: Qualifiers: Encounter type: initial encounter Qualified Code(s): W19.XXXA - Unspecified fall, initial encounter Code(s): W19.XXXA - Unspecified fall, initial encounter Status: Acute Assessment and Plan: Patient is a 71-year-old woman with a history of mild coronary artery disease per catheterization on December 2020, COPD on DuoNeb treatments, dyslipidemia, history of SVT status post 2 ablation and currently on metoprolol for rate control, who presented to the emergency room after sustaining a fall at home. The patient lives with her sister and her . She has been having increased confusion, trouble with her balance, frequent falls, high anxiety, agitation, and increased shortness of breath over the last few weeks. She was brought to the emergency room secondary to a fall for further evaluation and workup since it was unwitnessed. Initial vitals showed elevated blood pressure 141/73, heart rate 68 beats per minute, increased respiratory rate 25, afebrile, normal oxygenation 96% on room air. Initial labs showed leukocytosis at 11,100, normocytic anemia with a hemoglobin of 10, hematocrit 32%, normal coag panel, hypokalemia at 2.7, elevated creatinine at 1.2, BUN 20, low phosphorus at 2.4, normal LFTs, negative ammonia level, troponin within normal limits x1. Urinalysis showed no signs of UTI only contaminant with many squamous cells. Urine drug screen was positive for benzodiazepines, negative for alcohol, Tylenol overdoses or salicylates. due to the patient's fall and multiple bruises she had multiple x-rays of her elbow, hands, knee, wrist which showed no acute fracture. CT head showed old lacunar infarcts in the right basal ganglia. Cervical CT showed no fracture, moderate cervical spondylosis. CT chest abdomen pelvis with contrast showed no osseous abnormality or acute intra thoracic, abdominal or pelvic process. Moderate emphysema. Cholelithiasis. And a small penetrating atherosclerotic ulcer at the distal descending thoracic aorta. Carotid Doppler showed less than 50% stenosis bilaterally. MRI showed normal aging brain. Patient was admitted into the hospital for further evaluation of her agitation, confusion, and consult to neurology. Neurology evaluated the patient and recommended getting an EEG to rule out seizure activity which is pending PT OT have been ordered for further evaluation I called Dr. Gonzalez Psychiastrist and will continue to current regimen which is: Zoloft to 50 mg AM and 25 mg HS Lorazapam 0.5 mg QID Olanzapine 2.5 mg HS Haldol as needed for psychosis and Ativan as needed for benzo withdrawal. The patient is doing much better today and we are waiting on SNF placement and insurance authorization. Talked to Dr. Gonzalez who is not going to make any further medication adjustments at this time and recommends following up with him as an outpatient 10/22/21, as he only has outpatient appointments Thursdays. Will continue to have patient work with therapy and decided best placement options. Continue monitoring. Appreciate neurology's and psych input and recommendations. (2) Confusion: Code(s): R41.0 - Disorientation, unspecified Status: Acute Assessment and Plan: see above. (3) Hypokalemia: Code(s): E87.6 - Hypokalemia Status: Acute Assessment and Plan: Potassium is 2.7 which was replaced and potassium was 3.1 today. Will give 60 mEq now and recheck this afternoon. Magnesium was normal. (4) Hypertension: Qualifiers: Hypertension type: essential hypertension Qualified Code(s): I10 - Essential (primary) hypertension Code(s): I10 - Essential (primary) hypertension Status: Chronic Assessment a
--- NOTE | 2021-10-07 12:25 | PCNEURO ---
EEG was attempted again this morning and patient is more alert but refused to have test done. Will inform Dr Saucedo and see if I can cancel this order.
[2021-10-07 14:36] LABS: Potassium 4.4 mmol/L (3.4-5.0)
[2021-10-07] MEDS: SERTRALINE HCL 25 MG TABLET PO (20:07)
[2021-10-07] MEDS: FLUTICASONE/SALMETEROL 115-21 MCG INHALER 1 PUFF 2 PUFF INHALATION (22:38)
[2021-10-08] VITALS (12 sets, daily range): BP systolic 118–153; BP diastolic 59–91; PULSE 70–109; RESP 18–22; TEMP 36.2–37.1; O2SAT 96–100
[2021-10-08] MEDS: LORazepam (*CRX) 0.5 MG TABLET PO ×5 (03:17→20:30)
[2021-10-08] MEDS: HALOPERIDOL LACTATE 5 MG/ML VIAL IM (04:10)
--- NOTE | 2021-10-08 04:16 | PCDIET ---
patient continues to be agitated, confused, climbing out of bed, combative with care. gave haldol im due to fact she refuses to take po at this time.
[2021-10-08 05:54] LABS: Anion Gap 6 mmol/L (8-16); Blood Urea Nitrogen 14 mg/dL (7-17); Calcium 8.2 mg/dL (8.4-10.2); Carbon Dioxide 21 mmol/L (22-30); Chloride 108 mmol/L (98-107); Estimated CRCL calculation 46 ml/min; Estimated Glomerular Filt Rate > 60; Glucose 108 mg/dL (65-110); Magnesium 1.9 mg/dL (1.6-2.3); Potassium 4.1 mmol/L (3.4-5.0); Sodium 135 mmol/L (137-145)
[2021-10-08] MEDS: SUCRALFATE 1 GM TABLET PO ×4 (06:18→20:27)
[2021-10-08] MEDS: NYSTATIN 100,000 UNITS/ML SUSP 5 ML ORAL.SUSP PO ×4 (09:50→20:28)
[2021-10-08] MEDS: METOPROLOL TARTRATE 12.5 MG TABLET PO ×2 (09:51→20:28)
[2021-10-08] MEDS: SERTRALINE HCL 50 MG TABLET PO (09:52)
[2021-10-08] MEDS: OLANZapine 2.5 MG TABLET PO ×2 (09:52→20:27)
[2021-10-08] MEDS: ASPIRIN 81 MG ENTERIC TABLET PO (09:52)
[2021-10-08] MEDS: PANTOPRAZOLE 40 MG TABLET PO ×2 (09:52→20:27)
[2021-10-08] MEDS: NICOTINE (*PBKC) 21 MG PATCH 1 PATCH TRANSDERM (09:53)
[2021-10-08] MEDS: ENOXAPARIN 40 MG/0.4 ML SYRINGE SUB-Q (09:53)
[2021-10-08] MEDS: ROSUVASTATIN 10 MG TABLET PO (09:53)
--- NOTE | 2021-10-08 10:42 | PCOTNOTE ---
Attempted to see patient, patient very agitated and sitter present in room. Patient yelling out she would like to get up and walk out of the hospital , etc. Attempted to get patient to ambulate in room with therapist or perform ADL tasks. Patient impulsive, attempting to stand at EOB prior to donning gait belt and re-directed to sit and listen to therapist. Patient increasingly agitated, combative, and ultimately refused to participate in any tasks with this therapist. Will re-attempt to see for OT if time allows.
--- NOTE | 2021-10-08 11:59 | PCOTNOTE ---
Attempted patient for 2nd time this AM as patient's sitter notified this therapist that patient's daughter was present in patient's room. Patient agreeable to donning shoes EOB, but refused to continue participating in any functional mobility or ADLs. OT session not completed.
--- NOTE | 2021-10-08 14:50 | PM.IMPN ---
Progress Note: A&P Assessment and Plan (1) Fall: Qualifiers: Encounter type: initial encounter Qualified Code(s): W19.XXXA - Unspecified fall, initial encounter Code(s): W19.XXXA - Unspecified fall, initial encounter Status: Acute Assessment and Plan: Patient is a 71-year-old woman with a history of mild coronary artery disease per catheterization on December 2020, COPD on DuoNeb treatments, dyslipidemia, history of SVT status post 2 ablation and currently on metoprolol for rate control, who presented to the emergency room after sustaining a fall at home. The patient lives with her sister and her . She has been having increased confusion, trouble with her balance, frequent falls, high anxiety, agitation, and increased shortness of breath over the last few weeks. She was brought to the emergency room secondary to a fall for further evaluation and workup since it was unwitnessed. Initial vitals showed elevated blood pressure 141/73, heart rate 68 beats per minute, increased respiratory rate 25, afebrile, normal oxygenation 96% on room air. Initial labs showed leukocytosis at 11,100, normocytic anemia with a hemoglobin of 10, hematocrit 32%, normal coag panel, hypokalemia at 2.7, elevated creatinine at 1.2, BUN 20, low phosphorus at 2.4, normal LFTs, negative ammonia level, troponin within normal limits x1. Urinalysis showed no signs of UTI only contaminant with many squamous cells. Urine drug screen was positive for benzodiazepines, negative for alcohol, Tylenol overdoses or salicylates. due to the patient's fall and multiple bruises she had multiple x-rays of her elbow, hands, knee, wrist which showed no acute fracture. CT head showed old lacunar infarcts in the right basal ganglia. Cervical CT showed no fracture, moderate cervical spondylosis. CT chest abdomen pelvis with contrast showed no osseous abnormality or acute intra thoracic, abdominal or pelvic process. Moderate emphysema. Cholelithiasis. And a small penetrating atherosclerotic ulcer at the distal descending thoracic aorta. Carotid Doppler showed less than 50% stenosis bilaterally. MRI showed normal aging brain. Patient was admitted into the hospital for further evaluation of her agitation, confusion, and consult to neurology. Neurology evaluated the patient and recommended getting an EEG to rule out seizure activity which is pending PT OT have been ordered for further evaluation I called Dr. Gonzalez Psychiastrist and will continue to current regimen which is: Zoloft to 50 mg AM and 25 mg HS Lorazapam 0.5 mg QID Olanzapine 2.5 mg HS Haldol as needed for psychosis and Ativan as needed for benzo withdrawal. Talked to Dr. Gonzalez who is not going to make any further medication adjustments at this time and recommends following up with him as an outpatient 10/22/21, as he only has outpatient appointments Thursday afternoons. Will continue to have patient work with therapy and decided best placement options. Waiting on SNF placement and insurance authorization. (2) Confusion: Code(s): R41.0 - Disorientation, unspecified Status: Acute Assessment and Plan: see above. (3) Hypokalemia: Code(s): E87.6 - Hypokalemia Status: Acute Assessment and Plan: Potassium is 2.7 which was replaced and potassium was 3.1 today. Will give 60 mEq now and recheck this afternoon. Magnesium was normal. This has resolved. (4) Hypertension: Qualifiers: Hypertension type: essential hypertension Qualified Code(s): I10 - Essential (primary) hypertension Code(s): I10 - Essential (primary) hypertension Status: Chronic Assessment and Plan: Patient's blood pressure has been intermittently elevated most likely secondary to her confusion and
[2021-10-08] MEDS: predniSONE 20 MG TABLET 60 MG PO (15:32)
[2021-10-08] MEDS: IPRATROPIUM BR 0.02% INH SOLN 0.5 MG/2.5 ML VIAL INHALATION (16:11)
[2021-10-08] MEDS: ALBUTEROL SULFATE NEB 2.5 MG/0.5 ML INH INHALATION ×2 (16:11)
[2021-10-08] MEDS: lamoTRIgine 25 MG TABLET PO (20:28)
[2021-10-08] MEDS: SERTRALINE HCL 25 MG TABLET PO (20:28)
--- NOTE | 2021-10-08 22:33 | PCRCNOTE ---
past scheduled treatment window, see next available administration
[2021-10-09] VITALS (14 sets, daily range): BP systolic 121–148; BP diastolic 59–97; PULSE 72–113; RESP 16–21; TEMP 36.3–37.2; O2SAT 96–100
[2021-10-09] MEDS: IPRATROPIUM BR 0.02% INH SOLN 0.5 MG/2.5 ML VIAL INHALATION ×4 (00:12→21:33)
[2021-10-09] MEDS: ALBUTEROL SULFATE NEB 2.5 MG/0.5 ML INH INHALATION ×4 (00:12→21:33)
[2021-10-09] MEDS: LORazepam (*CRX) 0.5 MG TABLET PO ×5 (04:02→21:01)
--- NOTE | 2021-10-09 04:12 | PCRCNOTE ---
pt only did 1/2 of midnight treatment due to combativeness. pt does not want to keep nebulizer mask on face. pt is clear of wheezing and secretions.
--- NOTE | 2021-10-09 04:17 | PCRCNOTE ---
pt combative. therapist will come back to see if pt is calm enough for treatment
[2021-10-09] MEDS: SUCRALFATE 1 GM TABLET PO ×4 (06:28→20:56)
[2021-10-09 06:45] LABS: Basophils Percent Auto 0.5 % (0.2-1.2); Hematocrit 31.2 % (37.0-47.0); Hemoglobin 9.9 g/dL (12.0-15.0); Immature Granulocyte Absolute 0.07 K/mm3 (0.00-0.031); Immature Granulocyte Percent A 1.2 % (0-0.5); Lymphocytes Absolute Auto 0.91 K/mm3 (0.9-3.2); Lymphocytes Percent Auto 15.4 % (18.3-44.2); Mean Corpuscular HGB Conc 31.7 g/dl (32-36); Mean Corpuscular Hemoglobin 29.6 pg (26-34); Mean Corpuscular Volume 93.4 fl (80-100); Mean Platelet Volume 10.7 fl (7.4-10.4); Monocytes Absolute Auto 0.6 K/mm3 (0.1-0.6); Monocytes Percent Auto 9.5 % (2.6-8.5); Neutrophils Absolute Auto 4.4 K/mm3 (1.3-6.7); Neutrophils Percent Auto 73.4 % (45.5-73.1); Platelet Count Result 157 k/mm3 (150-375); Red Blood Count 3.34 M/mm3 (4.2-5.4); Red Cell Distribution Width 14.9 % (11.5-14.5); White Blood Count 5.9 K/mm3 (4.5-10.0)
[2021-10-09 07:01] LABS: Anion Gap 6 mmol/L (8-16); Blood Urea Nitrogen 18 mg/dL (7-17); Calcium 8.3 mg/dL (8.4-10.2); Carbon Dioxide 21 mmol/L (22-30); Chloride 105 mmol/L (98-107); Estimated CRCL calculation 36 ml/min; Estimated Glomerular Filt Rate > 60; Glucose 144 mg/dL (65-110); Potassium 4.3 mmol/L (3.4-5.0); Sodium 132 mmol/L (137-145)
[2021-10-09] MEDS: PANTOPRAZOLE 40 MG TABLET PO ×2 (09:34→20:55)
[2021-10-09] MEDS: NYSTATIN 100,000 UNITS/ML SUSP 5 ML ORAL.SUSP PO ×4 (09:34→20:55)
[2021-10-09] MEDS: OLANZapine 2.5 MG TABLET PO ×2 (09:34→20:55)
[2021-10-09] MEDS: NICOTINE (*PBKC) 21 MG PATCH 1 PATCH TRANSDERM (09:35)
[2021-10-09] MEDS: predniSONE 40 MG, predniSONE 10 MG 50 MG PO (09:35)
[2021-10-09] MEDS: lamoTRIgine 25 MG TABLET PO ×2 (09:36→20:55)
[2021-10-09] MEDS: METOPROLOL TARTRATE 12.5 MG TABLET PO ×2 (09:36→20:55)
[2021-10-09] MEDS: ASPIRIN 81 MG ENTERIC TABLET PO (09:36)
[2021-10-09] MEDS: SERTRALINE HCL 50 MG TABLET PO (09:36)
[2021-10-09] MEDS: ROSUVASTATIN 10 MG TABLET PO (09:36)
[2021-10-09] MEDS: ENOXAPARIN 40 MG/0.4 ML SYRINGE SUB-Q (09:37)
--- NOTE | 2021-10-09 10:38 | PCRCNOTE ---
Window of time for administration has passed. See next scheduled administration.
--- NOTE | 2021-10-09 13:23 | PCOTNOTE ---
Attempted to see pt. however, pt. exhibiting confusion and stating she had already completed all ADLs offered, therapy explained the benefits of participating in therapy with pt. adamantly refusing. Will continue POC tomorrow.
--- NOTE | 2021-10-09 13:54 | PM.IMPN ---
Progress Note: A&P Assessment and Plan (1) Fall: Qualifiers: Encounter type: initial encounter Qualified Code(s): W19.XXXA - Unspecified fall, initial encounter Code(s): W19.XXXA - Unspecified fall, initial encounter Status: Acute Assessment and Plan: -Initial labs showed leukocytosis at 11,100, normocytic anemia with a hemoglobin of 10, hematocrit 32%, normal coag panel, hypokalemia at 2.7, elevated creatinine at 1.2, BUN 20, low phosphorus at 2.4, normal LFTs, negative ammonia level, troponin within normal limits x1. -Urinalysis showed no signs of UTI only contaminant with many squamous cells. Urine drug screen was positive for benzodiazepines, negative for alcohol, Tylenol overdoses or salicylates. -Due to the patient's fall and multiple bruises she had multiple x-rays of her elbow, hands, knee, wrist which showed no acute fracture. -CT head showed old lacunar infarcts in the right basal ganglia. -Cervical CT showed no fracture, moderate cervical spondylosis. -CT chest abdomen pelvis with contrast showed no osseous abnormality or acute intra thoracic, abdominal or pelvic process. Moderate emphysema. Cholelithiasis. And a small penetrating atherosclerotic ulcer at the distal descending thoracic aorta. -Carotid Doppler showed less than 50% stenosis bilaterally. -MRI showed normal aging brain. PT OT have been ordered for further evaluation I called Dr. Gonzalez Psychiastrist and will continue to current regimen which is: Zoloft to 50 mg AM and 25 mg HS Lorazapam 0.5 mg QID Olanzapine 2.5 mg HS Haldol as needed for psychosis and Ativan as needed for benzo withdrawal. Talked to Dr. Gonzalez who is not going to make any further medication adjustments at this time and recommends following up with him as an outpatient 10/22/21, as he only has outpatient appointments Thursday afternoons. Will continue to have patient work with therapy and decided best placement options. Neurology evaluated the patient and recommended getting an EEG to rule out seizure activity, unfortunately patient refused this test multiple times. He then started her on Lamictal in the event the hallucinations were at all related to seizure activity with the added benefit of it also treating psychiatric disorders. She has been doing well on this medication regimen and is now A/Ox3 and stable for discharge. Will follow up outpatient w/ Dr. Saucedo in 3 months. Waiting on SNF placement and insurance authorization. (2) Confusion: Code(s): R41.0 - Disorientation, unspecified Status: Acute Assessment and Plan: see above. (3) Hypokalemia: Code(s): E87.6 - Hypokalemia Status: Acute Assessment and Plan: Potassium was 2.7 which was replaced. Hypokalemia resolved. (4) Hypertension: Qualifiers: Hypertension type: essential hypertension Qualified Code(s): I10 - Essential (primary) hypertension Code(s): I10 - Essential (primary) hypertension Status: Chronic Assessment and Plan: Patient's blood pressure has been intermittently elevated most likely secondary to her confusion and anxiety. She is not on any chronic blood pressure medications, only metoprolol for her history of SVT. She does have findings of atherosclerotic ulcer of the aorta which needs very strict blood pressure control. I have told her son this and we will work on blood pressure control and decreasing her anxiety. BP 121/70, stable Continue with metoprolol. P.r.n. hydralazine for blood pressure greater than 180 systolic, 100 diastolic. Continue monitoring blood pressure throughout the day. Make adjustments if needed. (5) Anxiety: Code(s): F41.9 - Anxiety disorder, unspecified
--- NOTE | 2021-10-09 14:15 | PCPTNOTE ---
Attempted to see patient for PT at this time, however patient is confused and refused to participated. Patient reported she was waiting to go home. Encouraged patient to ambulate and to work with therapy, patient reported not right now.
[2021-10-09] MEDS: SERTRALINE HCL 25 MG TABLET PO (20:56)
[2021-10-09] MEDS: FLUTICASONE/SALMETEROL 115-21 MCG INHALER 1 PUFF 2 PUFF INHALATION (21:34)
[2021-10-10] VITALS (7 sets, daily range): BP systolic 110–121; BP diastolic 54–67; PULSE 88–110; RESP 16–18; TEMP 36.4–37; O2SAT 95–98
[2021-10-10] MEDS: IPRATROPIUM BR 0.02% INH SOLN 0.5 MG/2.5 ML VIAL INHALATION (02:17)
[2021-10-10] MEDS: ALBUTEROL SULFATE NEB 2.5 MG/0.5 ML INH INHALATION (02:17)
[2021-10-10] MEDS: LORazepam INJ (*CRX) 2 MG/ML VIAL 0.5 MG IM (05:47)
[2021-10-10 06:02] LABS: Basophils Percent Auto 0.2 % (0.2-1.2); Hematocrit 26.6 % (37.0-47.0); Hemoglobin 8.5 g/dL (12.0-15.0); Immature Granulocyte Absolute 0.09 K/mm3 (0.00-0.031); Immature Granulocyte Percent A 1.1 % (0-0.5); Lymphocytes Absolute Auto 1.66 K/mm3 (0.9-3.2); Mean Corpuscular Hemoglobin 29.6 pg (26-34); Mean Corpuscular Volume 92.7 fl (80-100); Mean Platelet Volume 10.7 fl (7.4-10.4); Monocytes Absolute Auto 0.9 K/mm3 (0.1-0.6); Neutrophils Absolute Auto 5.6 K/mm3 (1.3-6.7); Neutrophils Percent Auto 67.7 % (45.5-73.1); Platelet Count Result 201 k/mm3 (150-375); Red Blood Count 2.87 M/mm3 (4.2-5.4); Red Cell Distribution Width 14.9 % (11.5-14.5); White Blood Count 8.3 K/mm3 (4.5-10.0)
[2021-10-10 06:11] LABS: Alanine Aminotransferase 10 U/L (4-35); Alkaline Phosphatase 58 U/L (38-126); Anion Gap 5 mmol/L (8-16); Aspartate Amino Transferase 18 U/L (14-36); Bilirubin,Total 0.2 mg/dL (0.2-1.3); Blood Urea Nitrogen 19 mg/dL (7-17); Calcium 8.1 mg/dL (8.4-10.2); Carbon Dioxide 19 mmol/L (22-30); Chloride 111 mmol/L (98-107); Estimated CRCL calculation 36 ml/min; Estimated Glomerular Filt Rate > 60; Glucose 104 mg/dL (65-110); Potassium 3.5 mmol/L (3.4-5.0); Sodium 135 mmol/L (137-145)
--- NOTE | 2021-10-10 08:22 | PC.NURSE ---
pt suspicious and refusing meds, sitter at bedside, many attempts to reorient and console pt
--- NOTE | 2021-10-10 10:58 | PCNFU ---
Nutrition Follow-Up Complete: Inadequate Oral Intake as related to Dementia as evidenced by poor po intake. goal: Meet estimated nutritional needs Patient has limited progress towards goal. We will continue current goal. Pt current nutrition is Regular with ensure compact BID. Last recorded weight is 45 kg, no new weight to report. Bowel Motility:+BM reported 10/07 Labs Reviewed:BUN 19, Na 135,Alb 3.0,Hgb 8.5,Hct 26.6 Meds Noted:Ativan, Protonix, Zoloft, Crestor,Carafate, Atrovent. Skin:WNL Additional Notes: Patient remains on a regular diet-Oral Intake remains poor, 5-25% of meals. Po intake is encouraged. Waiting on SNF placement and insurance authorization for discharge. Monitoring: Will monitor every 3 days.
[2021-10-10] MEDS: SERTRALINE HCL 50 MG TABLET PO (12:42)
[2021-10-10] MEDS: ROSUVASTATIN 10 MG TABLET PO (12:42)
[2021-10-10] MEDS: PANTOPRAZOLE 40 MG TABLET PO (12:42)
[2021-10-10] MEDS: lamoTRIgine 25 MG TABLET PO (12:42)
[2021-10-10] MEDS: LORazepam (*CRX) 0.5 MG TABLET PO (12:43)
[2021-10-10] MEDS: predniSONE 20 MG TABLET 40 MG PO (12:43)
[2021-10-10] MEDS: OLANZapine 2.5 MG TABLET PO (12:43)
[2021-10-10] MEDS: ASPIRIN 81 MG ENTERIC TABLET PO (12:44)
[2021-10-10] MEDS: SUCRALFATE 1 GM TABLET PO (12:44)
[2021-10-10] MEDS: NYSTATIN 100,000 UNITS/ML SUSP 5 ML ORAL.SUSP PO (12:44)
[2021-10-10] MEDS: METOPROLOL TARTRATE 12.5 MG TABLET PO (12:45)
--- NOTE | 2021-10-10 12:50 | PC.NURSE ---
pt worked with therapy and walked in walker, had some lunch and is in better spirits, is agreeable to taking PO meds, assisted back to bed and is resting comfortably
--- NOTE | 2021-10-10 13:27 | PM.DS ---
DS: Admitting Diagnosis Discharge Date 10/10/21 Admitting Diagnosis confusion DS: Discharge Diagnosis Discharge Diagnosis (1) Fall: Qualifiers: Encounter type: initial encounter Qualified Code(s): W19.XXXA - Unspecified fall, initial encounter Code(s): W19.XXXA - Unspecified fall, initial encounter Status: Acute Assessment and Plan: -Initial labs showed leukocytosis at 11,100, normocytic anemia with a hemoglobin of 10, hematocrit 32%, normal coag panel, hypokalemia at 2.7, elevated creatinine at 1.2, BUN 20, low phosphorus at 2.4, normal LFTs, negative ammonia level, troponin within normal limits x1. -Urinalysis showed no signs of UTI only contaminant with many squamous cells. Urine drug screen was positive for benzodiazepines, negative for alcohol, Tylenol overdoses or salicylates. -Due to the patient's fall and multiple bruises she had multiple x-rays of her elbow, hands, knee, wrist which showed no acute fracture. -CT head showed old lacunar infarcts in the right basal ganglia. -Cervical CT showed no fracture, moderate cervical spondylosis. -CT chest abdomen pelvis with contrast showed no osseous abnormality or acute intra thoracic, abdominal or pelvic process. Moderate emphysema. Cholelithiasis. And a small penetrating atherosclerotic ulcer at the distal descending thoracic aorta. -Carotid Doppler showed less than 50% stenosis bilaterally. -MRI showed normal aging brain. -Doing well with PT/OT -I called Dr. Gonzalez Psychiastrist and will continue to current regimen which is: Zoloft to 50 mg AM and 25 mg HS Lorazapam 0.5 mg QID Olanzapine 2.5 mg HS Haldol as needed for psychosis and Ativan as needed for benzo withdrawal. Talked to Dr. Gonzalez who is not going to make any further medication adjustments at this time and recommends following up with him as an outpatient 10/22/21, as he only has outpatient appointments Thursday afternoons. -Neurology evaluated the patient and recommended getting an EEG to rule out seizure activity, unfortunately patient refused this test multiple times. He then started her on Lamictal in the event the hallucinations were at all related to seizure activity with the added benefit of it also treating psychiatric disorders. She has been doing well on this medication regimen and is now A/Ox3 and stable for discharge. Will follow up outpatient w/ Dr. Naseer in 3 months. (2) Confusion: Code(s): R41.0 - Disorientation, unspecified Status: Acute Assessment and Plan: see above. (3) Hypokalemia: Code(s): E87.6 - Hypokalemia Status: Acute Assessment and Plan: Potassium was 2.7 which was replaced. Hypokalemia resolved. (4) Hypertension: Qualifiers: Hypertension type: essential hypertension Qualified Code(s): I10 - Essential (primary) hypertension Code(s): I10 - Essential (primary) hypertension Status: Chronic Assessment and Plan: Patient's blood pressure has been intermittently elevated most likely secondary to her confusion and anxiety. She is not on any chronic blood pressure medications, only metoprolol for her history of SVT. She does have findings of atherosclerotic ulcer of the aorta which needs very strict blood pressure control. BP has remained stable Continued with metoprolol. P.r.n. hydralazine was available for blood pressure greater than 180 systolic, 100 diastolic, but was never needed during admission. (5) Anxiety: Code(s): F41.9 - Anxiety disorder, unspecified Status: Chronic Assessment and Plan: Talked with psychiatrist, continue to work on decreasing taper of Benzo, 0.5 mg QID while here, then mentioned continuing to decrease by 0.5 mg weekly, but h
[2021-10-10 14:15] LABS: EDCOVIDSCREEN Negative (Negative)
--- NOTE | 2021-10-10 14:47 | PC.NURSE ---
Report called to RN at [facility], reviewed plan of care and MD orders
[2021-10-12 09:54] LABS: Folic Acid 6.5 ng/mL (2.76->20)
== END 2021-10-10 16:20 | DRG 641 ==
LOC: ANHED 11:52 → ANH3MEDSUR 15:05 → ANH2MED 15:08
PROVIDERS: Nurse Practitioner; Physician Assistant; Psychiatry & Neurology Psychiatry; Admitting Provider Internal Medicine; Emergency Provider Emergency Medicine; PCP Family Medicine; Visit Provider Physician Assistant
DX: E87.6 Hypokalemia (principal); I47.1 Supraventricular tachycardia; R44.3 Hallucinations, unspecified; Z20.822 Contact with and (suspected) exposure to COVID-19; F03.90 Unspecified dementia, unspecified severity, without behavioral disturbance, psychotic disturbance, mood disturbance, and anxiety; R41.0 Disorientation, unspecified; I25.10 Atherosclerotic heart disease of native coronary artery without angina pectoris; J44.9 Chronic obstructive pulmonary disease, unspecified; F17.210 Nicotine dependence, cigarettes, uncomplicated; I10 Essential (primary) hypertension; F41.9 Anxiety disorder, unspecified; E78.5 Hyperlipidemia, unspecified; M47.892 Other spondylosis, cervical region; M17.12 Unilateral primary osteoarthritis, left knee; M81.0 Age-related osteoporosis without current pathological fracture; I71.2 Thoracic aortic aneurysm, without rupture; I70.0 Atherosclerosis of aorta; D72.829 Elevated white blood cell count, unspecified; S01.81XA Laceration without foreign body of other part of head, initial encounter; T14.8XXA Other injury of unspecified body region, initial encounter; R29.6 Repeated falls; W19.XXXA Unspecified fall, initial encounter; Z23 Encounter for immunization; Z79.899 Other long term (current) drug therapy
CPT/HCPCS: 36415; 70450; 70553; 71045; 71260; 72125; 73080; 73110; 73130; 73562; 74177; 80048; 80053; 80074; 80307; 81001; 82140; 82607; 82746; 82948; 83605; 83615; 83735; 84100; 84132; 84443; 84484; 85014; 85018; 85025; 85055; 85610; 85730; 86140; 86592; 86703; 87426; 90715; 93005; 93306; 93880; 94640; 96361; 96365; 96366; 96367; 96372; 96375; 96376; 97162; 97166; 97167; 97530; 97535; 99285; A9270; A9577; C9803; G0378; G0432; J1200; J1630; J1650; J2060; J3475; J3480; J7030; J7512; Q9967

== ENCOUNTER 2021-10-15 21:54 | Emergency (ER) | payer MEDICARE, MEDICAID, SELFPAY ==
--- NOTE | ~2021-10-15 | CT_ITS ---
EXAMINATION: CT brain wo con DATE: 10/15/2021 22:33 INDICATION: Fall with head injury TECHNIQUE: Computed tomography (CT) of the head was performed without intravenous contrast. Sagittal and coronal reconstructions were performed. The mA was adjusted according to patient size. Iterative reconstruction technique was employed. The dose-length product was 605.33 mGy-cm. COMPARISON: head CT dated 10/02/2021 FINDINGS: No fracture. No acute intracranial hemorrhage, acute infarction or abnormal extra axial fluid collect ion. Small old lacunar infarct at the right basal ganglia. There is mild scattered white matter hypoa ttenuation consistent with chronic small vessel ischemic disease. Ventricles are normal and symmetri c. No mass/mass effect. Changes of bilateral intraocular lens replacement. The orbits, paranasal sinu ses and mastoid air cells are normal. IMPRESSION: 1. No fracture or acute intracranial process. 2. Unchanged small old lacunar infarct in the right basal ganglia. Reviewed, dictated and finalized at location . ARD PEELER
--- NOTE | ~2021-10-15 | CT_ITS ---
EXAMINATION: CT cervical spine wo con DATE: 10/15/2021 22:33 INDICATION: Fall with head injury TECHNIQUE: Computed tomography (CT) of the cervical spine was performed without intravenous contrast. Automated exposure control and iterative reconstruction technique were employed. The dose-length pro duct was 133.91 mGy-cm. COMPARISON: 10/02/2021 FINDINGS: Mild cervical thoracic dextrocurvature. No interval change in exaggerated cervical lordosis and 2 mm retrolisthesis C4 on C5 and C5 on C6. Vertebral body heights are normal. No fracture. Moderate disc h eight loss at C5-C6 and mild disc height loss at C2-C3 and C4-C5. Atherosclerotic calcification is at the bilateral carotid bulbs. Cervical soft tissues are otherwise unremarkable. Emphysema and chronic scarring at the bilateral apices of the lungs. IMPRESSION: 1. No acute osseous abnormality. 2. Moderate cervical spondylosis. See report from 10/02/2021 for level by level detail. Reviewed, dictated and finalized at location H. IC TERRAZZO SETTER
[2021-10-15 22:00] VITALS: BP 121/93; PULSE 95; RESP 25; TEMP 36.4; O2SAT 96
--- NOTE | 2021-10-15 22:23 | ED.GENADULT ---
HPI - General Adult General Chief complaint: Fall Stated complaint: glf hit head, sob Time Seen by Provider: 10/15/21 21:57 Source: patient and RN notes reviewed History of Present Illness HPI narrative: Patient is a 71 y/o female sent here for a fall. She states that she fell when she was trying to get up from a wheel chair. She hit her right side of head. She has a right sided headache. She rates rates her pain as 7/10. There is no alleviating or exacerbating factor. She has no neck pain, back pain, chest pain or abdominal pain. Related Data Home Medications Medication Instructions Recorded Confirmed albuterol sulfate 90 mcg/actuation 2 puff INHALATION Q4H PRN 11/24/19 10/02/21 aerosol inhaler ipratropium 0.5 mg-albuterol 3 mg 3 ml INHALATION Q4H 11/24/19 10/02/21 (2.5 mg base)/3 mL nebulization soln rosuvastatin 10 mg PO DAILY 01/03/21 10/02/21 metoprolol tartrate 12.5 mg PO BID 10/02/21 10/02/21 sucralfate 1 g PO QID 10/02/21 10/02/21 Allergies Allergy/AdvReac Type Severity Reaction Status Date / Time codeine AdvReac Unknown Nausea and Verified 10/02/21 18:26 Vomiting propoxyphene AdvReac Unknown Nausea Verified 10/02/21 18:26 Review of Systems Constitutional: Constitutional: Denies chills, Denies fever(s), Reports headache(s) and Denies weakness Eyes: Eyes: Denies blurry vision ENT: Reports headache(s) and Denies neck pain Cardiovascular: Cardiovascular: Denies chest pain and Denies dyspnea Respiratory: Respiratory: Denies cough and Denies dyspnea Gastrointestinal: Gastrointestinal: Denies abdominal pain, Denies diarrhea, Denies nausea and Denies vomiting Genitourinary: Genitourinary: Denies hematuria and Denies dysuria Musculoskeletal: Musculoskeletal: Denies back pain and Denies neck pain Neurologic: Reports headache(s) and Denies weakness PMFSH Past Medical History Medical History Anxiety Asthma COPD (chronic obstructive pulmonary disease) Coronary artery disease Hypertension Osteoarthritis of left knee Osteoporosis Surgical History Surgical History H/O Spinal surgery 5, 6, 7 = Nov 2017 Family History Family History Other Unknown family medical history Social History Social History Social History: The patient is listed as a full code. She is listed as currently being a smoker. He is not known how much she drinks Smoking packs per day: 0.5 Smoking cigarettes per day: 10.0 Years smoked: 40 Smoking pack-years: 20.00 Smoking status: Current every day smoker Tobacco type: cigarettes Alcohol intake: never Alcohol use details: Occasional Substance use: never Substance use type: does not use Additional living arrangements comments: Sister & brother in law Gender identity (if verbalized by the patient): Female Spiritual care concerns: No Exam Const: General: no acute distress and well developed Orientation/consciousness: oriented to person, oriented to place, oriented to time and patient oriented x3 HENMT: Head: normocephalic Ears: external ears normal General nose exam: Normal external nose present Eyes: General: appearance normal, both eyes and all related structures Conjunctivae: conjunctivae normal Neck: Neck: normal visual inspection and full ROM Chest: Chest palpation & inspection: normal inspection of the chest and no tenderness Resp: Effort & Inspection: normal respiratory effort Auscultation: clear to auscultation bilaterally Cardio: Rate: regular rate Rhythm: regular rhythm GI: GI Palp: No abdominal tenderness and Yes Soft to palpation Skin: General skin exam: normal color and turgor normal Neuro: General: oriented to person, oriented to place, oriented to time and patient oriented x3 Cognition (Neuro): n
[2021-10-15 22:37] VITALS: BP 133/77; PULSE 97; RESP 26; O2SAT 98
[2021-10-15] MEDS: LORazepam (*CRX) 0.5 MG TABLET PO (22:49)
[2021-10-15 23:31] VITALS: BP 113/57; PULSE 88; RESP 24; O2SAT 96
[2021-10-15 23:58] LABS: Basophils Absolute Auto 0.1 K/mm3 (0.0-0.1); Basophils Percent Auto 0.6 % (0.2-1.2); Eosinophils Absolute Auto 0.4 K/mm3 (0-0.3); Eosinophils Percent Auto 3.5 % (0-4.4); Hematocrit 29.2 % (37.0-47.0); Hemoglobin 9.5 g/dL (12.0-15.0); Immature Granulocyte Percent A 0.8 % (0-0.5); Lymphocytes Absolute Auto 1.63 K/mm3 (0.9-3.2); Lymphocytes Percent Auto 13.4 % (18.3-44.2); Mean Corpuscular HGB Conc 32.5 g/dl (32-36); Mean Corpuscular Hemoglobin 29.8 pg (26-34); Mean Corpuscular Volume 91.5 fl (80-100); Mean Platelet Volume 9.9 fl (7.4-10.4); Monocytes Absolute Auto 1.5 K/mm3 (0.1-0.6); Neutrophils Absolute Auto 8.5 K/mm3 (1.3-6.7); Neutrophils Percent Auto 69.7 % (45.5-73.1); Platelet Count Result 219 k/mm3 (150-375); Red Blood Count 3.19 M/mm3 (4.2-5.4); Red Cell Distribution Width 14.7 % (11.5-14.5); White Blood Count 12.1 K/mm3 (4.5-10.0)
[2021-10-16 00:01] VITALS: BP 129/81; PULSE 91; RESP 17; O2SAT 96
[2021-10-16 00:07] LABS: Alanine Aminotransferase 11 U/L (4-35); Albumin Level 3.2 g/dL (3.5-5.1); Alkaline Phosphatase 76 U/L (38-126); Anion Gap 7 mmol/L (8-16); Aspartate Amino Transferase 15 U/L (14-36); Bilirubin,Total 0.4 mg/dL (0.2-1.3); Blood Urea Nitrogen 25 mg/dL (7-17); Carbon Dioxide 24 mmol/L (22-30); Chloride 102 mmol/L (98-107); Estimated CRCL calculation 40 ml/min; Estimated Glomerular Filt Rate > 60; Glucose 113 mg/dL (65-110); Potassium 3.1 mmol/L (3.4-5.0); Sodium 133 mmol/L (137-145)
[2021-10-16 00:51] LABS: Add Urine Microscopic? NO; Appearance Urine Clear (Clear); Bilirubin Urine Negative (Negative); Blood Urine Negative (Negative); Color Urine Yellow (Yellow); Glucose Urine UA Negative (Negative); Ketones Urine Negative (Negative); Leukocyte Esterase Ur Negative LEU/UL (Negative); Nitrate Urine Negative (Negative); Protein Urine Negative (Negative); Specific Grav Ur 1.021 (1.001-1.035); Urobilinogen Urine Negative mg/dL (<2.0)
[2021-10-16] MEDS: POTASSIUM CHLORIDE 20 MEQ TABLET 40 MEQ PO (01:17)
[2021-10-16 01:43] VITALS: BP 123/83; PULSE 98; RESP 22; O2SAT 97
--- NOTE | 2021-10-16 03:06 | PC.NURSE ---
vrbo erp dr rahman for ativan 0.5mg iv to help with pt screaming and combativeness
[2021-10-16] MEDS: LORazepam INJ (*CRX) 2 MG/ML VIAL 0.5 MG IV PUSH ×2 (03:13→03:37)
--- NOTE | 2021-10-16 04:20 | PC.NURSE ---
Addendum entered by Kierra Santacruz 10/16/21 04:26: PATIENT IS GOING TO [facility] Original Note: 0150: CALLED [facility] FOR RETURN TRANSPORT TO [facility]. ETA 0600 0329: NEW ETA 0500 0329: CALLED TO [facility]SP[facility] WITH A DIFFERENT PATIENT: NEW ETA 06 0332: CALLED [facility]...DECLINED 331: CALLED [facility]...DECLINED
== END 2021-10-16 06:49 ==
PROVIDERS: Emergency Provider Emergency Medicine; PCP Family Medicine
DX: S00.83XA Contusion of other part of head, initial encounter (principal); J44.9 Chronic obstructive pulmonary disease, unspecified; I25.10 Atherosclerotic heart disease of native coronary artery without angina pectoris; I10 Essential (primary) hypertension; M81.0 Age-related osteoporosis without current pathological fracture; M17.12 Unilateral primary osteoarthritis, left knee; F17.210 Nicotine dependence, cigarettes, uncomplicated; W05.0XXA Fall from non-moving wheelchair, initial encounter
CPT/HCPCS: 36415; 51701; 70450; 72125; 80053; 81003; 85025; 96374; 96375; 99284; A9270; J2060

== ENCOUNTER 2021-10-29 07:04 | Inpatient (IN) | payer MEDICARE, MEDICAID, SELFPAY ==
[2021-10-29] VITALS (25 sets, daily range): BP systolic 116–157; BP diastolic 62–99; PULSE 88–137; RESP 18–37; TEMP 36.6–37.7; O2SAT 92–100; BMI 15.8
--- NOTE | ~2021-10-29 | CT_ITS ---
EXAMINATION: CT brain wo con DATE: 10/30/2021 00:55 INDICATION: Fall. TECHNIQUE: Computed tomography (CT) of the head was performed without intravenous contrast. The mA wa s adjusted according to patient size. Iterative reconstruction technique was employed. Exam dose: 68 1.00 mGy-cm total exam DLP. COMPARISON: 10/29/2021 CT brain FINDINGS: Left vertebral and bilateral carotid siphon internal carotid artery calcifications. There is nonspecific diminished attenuation of the cerebral white matter, likely due to chronic small vessel ischemic changes. Small focal old right cerebellar infarct. No intracranial mass lesion or hemorrhage, midline shift or mass effect or recent cerebrovascular accident is noted. No midline shift or mass effect. No subdura l or epidural hematoma. Moderately prominent cerebral volume loss. No orbital mass lesion. No fracture or bone destruction of the cranial vault. IMPRESSION: Cerebral atherosclerosis and chronic small vessel ischemic changes of the cerebral white matter Small chronic right cerebellar infarct No acute intracranial finding Reviewed, dictated and finalized at Location A. Reviewed, dictated and finalized at location A. L ADMINISTRATIVE ASSISTANT
--- NOTE | ~2021-10-29 | XR_ITS ---
EXAMINATION: XR chest 1V portable INDICATION: Shortness of breath TECHNIQUE: Portable AP chest at 1155 hours COMPARISON: 10/29/2021 FINDINGS: The lungs are hyperinflated but free of acute opacities. There is no pleural effusion or pn eumothorax. The cardiomediastinal silhouette is normal. A healed right sixth rib fracture gives the a ppearance of a nodule in the right midlung zone. There are vertebroplasty changes in the thoracic spi ne with evidence of vertebroplasty material left of the spine as well as in the right lower lung zone . IMPRESSION: 1. No acute cardiopulmonary abnormality. Reviewed, dictated and finalized at location A. CTOR OF SOFTWARE ENGINEERING
--- NOTE | ~2021-10-29 | CT_ITS ---
EXAMINATION: CT brain wo con DATE: 10/29/2021 08:27 INDICATION: Fall. Posterior head pain. Hallucinations. TECHNIQUE: Computed tomography (CT) of the head was performed without intravenous contrast. The mA wa s adjusted according to patient size. Iterative reconstruction technique was employed. Exam dose: 60 5.33 mGy-cm total exam DLP. COMPARISON: 10/15/2021 CT brain 10/03/2021 MRI brain/brainstem 10/02/2021 and 09/13/2020 CT brain FINDINGS: Small chronic posteromedial right cerebellar hemispheric infarct is suggested. Small chronic right basal ganglia lacunar infarct. There is nonspecific diminished attenuation of the cerebral white matter, likely due to chronic small vessel ischemic change. There are bilateral carotid siphon internal carotid artery calcifications as well as left vertebral a rtery calcification. No intracranial mass lesion or hemorrhage or recent cerebrovascular accident, midline shift or mass e ffect effect or subdural or epidural hematoma is detected. No fracture or bone destruction of the cranial vault. The paranasal sinuses and mastoid air cells are normally developed and aerated. IMPRESSION: Small chronic right cerebellar infarct and right basal ganglia chronic lacunar infarct Cerebral atherosclerosis and chronic small vessel ischemic changes of the cerebral white matter No acute intracranial finding Reviewed, dictated and finalized at Location A. Reviewed, dictated and finalized at location A. OL COMMUNITY RELATIONS COORDINATOR IMPRESSION: Small chronic right cerebellar infarct and right basal ganglia chr onic lacunar infarct Cerebral atherosclerosis and chronic small vessel ischemic changes of the cereb ral white matter No acute intracranial finding
--- NOTE | ~2021-10-29 | XR_ITS ---
EXAMINATION: XR wrist LT min 3V DATE: 10/29/2021 07:55 INDICATION: Left wrist injury. TECHNIQUE: 4 views of left wrist were obtained. COMPARISON: Left hand radiographs 10/02/2021 FINDINGS: Bone alignment is normal. No fracture. There is moderate osteoarthritis of distal radioulna r joint. There is degenerative cystic change in proximal lunate. There is mild osteoarthritis of issac caphe joint and moderate osteoarthritis of first carpometacarpal joint. IMPRESSION: 1. Polyarticular osteoarthritis. Reviewed, dictated and finalized at location A. OR WINDOWS ENGINEER
--- NOTE | ~2021-10-29 | XR_ITS ---
EXAMINATION: XR shoulder RT min 2V DATE: 10/30/2021 01:02 INDICATION: Right shoulder pain. Fall. TECHNIQUE: 4 views of right shoulder were obtained. COMPARISON: None. FINDINGS: Bone alignment is normal. No fracture. Glenohumeral joint is normal. There is mild acromioc lavicular joint osteoarthritis. There is scarring at the lung apices. There is an old right rib fract ure. There are changes of vertebroplasty at 2 levels. IMPRESSION: 1. Mild acromioclavicular joint osteoarthritis. Reviewed, dictated and finalized at location A. EMAN
--- NOTE | ~2021-10-29 | XR_ITS ---
EXAMINATION: XR wrist RT min 3V DATE: 10/29/2021 07:55 INDICATION: Right wrist injury. TECHNIQUE: 4 views of right wrist were obtained. COMPARISON: Right wrist radiographs 10/02/2021 FINDINGS: There is dorsal tilt of lunate. No fracture. There is mild osteoarthritis of distal radioul jayme joint, severe osteoarthritis of triscaphe joint, and mild osteoarthritis of first carpometacarpal joint. There is mild osteoarthritis of some of the interphalangeal joints. IMPRESSION: 1. Polyarticular osteoarthritis. 2. Dorsal tilt of lunate, consistent with dorsal intercalated segmental instability (DISI). Reviewed, dictated and finalized at location A. ET PHOTOGRAPHER IMPRESSION: 1. Polyarticular osteoarthritis. 2. Dorsal tilt of lunate, consistent with dorsal intercalated segmental instabi lity (DISI).
--- NOTE | ~2021-10-29 | XR_ITS ---
EXAMINATION: XR chest 1V portable DATE: 10/29/2021 07:55 INDICATION: Chest pain. Fall. TECHNIQUE: A single frontal view of the chest was obtained. COMPARISON: Chest single view 10/04/2021, chest CT 10/02/2021 FINDINGS: There is scarring at the lung apices. There are lucencies in the lungs, consistent with emp hysema. No pleural effusion or pneumothorax. The heart size is normal. There are changes of vertebrop lasty at 2 levels. There is an old right rib fracture. IMPRESSION: 1. Stable scarring at the lung apices. 2. Emphysema. Reviewed, dictated and finalized at location A. IST
--- NOTE | 2021-10-29 07:29 | ECG_ITS ---
Measurements Intervals [place] Rate: 95 P: 79 MT: 144 QRS: -57 QRSD: 142 T: 42 QT: 389 QTc: 491 Interpretive Statements SINUS RHYTHM VENTRICULAR BIGEMINY RIGHT BUNDLE BRANCH BLOCK LEFT ANTERIOR FASCICULAR BLOCK BASELINE ARTIFACT- I, II, III, AVR, AVL, AVF, V1, V3-V6 ABNORMAL ECG Electronically Signed On 10-29-2021 9:11:42 LATHER APPRENTICE by Gerson Zazueta D.O.
--- NOTE | 2021-10-29 07:55 | PC.NURSE ---
[employer] states she will complete EKG
[2021-10-29 08:57] LABS: Basophils Percent Auto 0.5 % (0.2-1.2); Eosinophils Percent Auto 0.7 % (0-4.4); Hematocrit 29.7 % (37.0-47.0); Hemoglobin 9.4 g/dL (12.0-15.0); Immature Granulocyte Absolute 0.07 K/mm3 (0.00-0.031); Immature Granulocyte Percent A 1.6 % (0-0.5); Lymphocytes Absolute Auto 0.47 K/mm3 (0.9-3.2); Lymphocytes Percent Auto 10.9 % (18.3-44.2); Mean Corpuscular HGB Conc 31.6 g/dl (32-36); Mean Corpuscular Hemoglobin 29.3 pg (26-34); Mean Corpuscular Volume 92.5 fl (80-100); Mean Platelet Volume 9.5 fl (7.4-10.4); Monocytes Absolute Auto 0.4 K/mm3 (0.1-0.6); Neutrophils Absolute Auto 3.3 K/mm3 (1.3-6.7); Neutrophils Percent Auto 77.3 % (45.5-73.1); Platelet Count Result 151 k/mm3 (150-375); Red Blood Count 3.21 M/mm3 (4.2-5.4); Red Cell Distribution Width 15.2 % (11.5-14.5); White Blood Count 4.3 K/mm3 (4.5-10.0)
[2021-10-29 09:11] LABS: Anion Gap 12 mmol/L (8-16); Blood Urea Nitrogen 16 mg/dL (7-17); Calcium 8.3 mg/dL (8.4-10.2); Carbon Dioxide 17 mmol/L (22-30); Chloride 103 mmol/L (98-107); Estimated CRCL calculation 31 ml/min; Estimated Glomerular Filt Rate > 60; Glucose 77 mg/dL (65-110); Potassium 4.7 mmol/L (3.4-5.0); Sodium 132 mmol/L (137-145)
[2021-10-29 09:22] LABS: INR 1.1; Prothrombin Time 13.7 Seconds (11.1-14.7); Troponin I < 0.012 ng/mL (0.000-0.034)
[2021-10-29 09:23] LABS: Partial Thromboplastin Time 32.9 SECONDS (22.3-36.8)
--- NOTE | 2021-10-29 09:35 | ED.GENADULT ---
HPI - General Adult General Chief complaint: Fall Stated complaint: fall, wrist, cp ( covid +) Time Seen by Provider: 10/29/21 07:06 History of Present Illness HPI narrative: Patient is a 71-year-old female who presents ER status post fall. Patient was at her [facility] when she fell over the bedside tray. Unsure if she lost consciousness. Patient believes she was walking up steps and got dizzy while coming in from her car however this is not possible saying as she lives in a [facility]. Patient has had recent work-up for dementia/confusion. Patient is known to be Covid positive. Patient reports pain in her wrist bilaterally and there are skin tears on her hands that been repaired with Steri-Strips. Patient denies any additional injury or pain. Chart review shows patient takes Plavix. Covid positive on 10/27/2021. Related Data Home Medications Medication Instructions Recorded Confirmed albuterol sulfate 90 mcg/actuation 2 puff INHALATION Q4H PRN 11/24/19 10/02/21 aerosol inhaler ipratropium 0.5 mg-albuterol 3 mg 3 ml INHALATION Q4H 11/24/19 10/02/21 (2.5 mg base)/3 mL nebulization soln rosuvastatin 10 mg PO DAILY 01/03/21 10/02/21 metoprolol tartrate 12.5 mg PO BID 10/02/21 10/02/21 sucralfate 1 g PO QID 10/02/21 10/02/21 Allergies Allergy/AdvReac Type Severity Reaction Status Date / Time codeine AdvReac Unknown Nausea and Verified 10/02/21 18:26 Vomiting propoxyphene AdvReac Unknown Nausea Verified 10/02/21 18:26 Review of Systems Review of Systems: ROS unobtainable: Yes other (Limited due to dementia) Gastrointestinal: Gastrointestinal: Denies nausea and Denies vomiting Musculoskeletal: Musculoskeletal: Reports arthralgias, Denies joint swelling and Denies muscle cramps Integumentary/Breasts: Skin/Breast: Denies erythema and Denies rash Comments: Skin tears Neurologic: Reports dizziness, Denies headache(s), Denies focal weakness and Denies numbness PMFSH Past Medical History Medical History Anxiety Asthma COPD (chronic obstructive pulmonary disease) Coronary artery disease Hypertension Osteoarthritis of left knee Osteoporosis Surgical History Surgical History H/O Spinal surgery 5, 6, 7 = Nov 2017 Family History Family History Other Unknown family medical history Social History Social History Social History: The patient is listed as a full code. She is listed as currently being a smoker. He is not known how much she drinks Smoking packs per day: 0.5 Smoking cigarettes per day: 10.0 Years smoked: 40 Smoking pack-years: 20.00 Smoking status: Current every day smoker Tobacco type: cigarettes Alcohol intake: never Alcohol use details: Occasional Substance use: never Substance use type: does not use Additional living arrangements comments: Sister & brother in law Gender identity (if verbalized by the patient): Female Spiritual care concerns: No Exam Narrative: GENERAL: Chronically ill-appearing, underweight, and in no acute distress. HEAD: Normocephalic, atraumatic. EYES: PERRL and EOMI. NECK: Supple. CHEST: Clear to auscultation. No respiratory distress. HEART: Regular rate and rhythm. Normal peripheral pulses. ABDOMEN: Soft, nontender, nondistended. EXTREMITIES: Normal range of motion with mild tenderness of the wrists but no snuffbox tenderness. No edema. SKIN: Warm, dry, no rash. Skin tears bilateral hands and right wrist. Wrist not amenable to repair. Hand Steri-Stripped already. NEURO: No focal deficits. Alert and oriented x2-3. Course Course Emergency Course: Unremarkable evaluation. Patient may be discharged back to [facility]. Vital Signs Vital signs: Vital Signs Temperature 97.9 F 10/29/21 07:26 Pulse Ra
[2021-10-29 09:47] LABS: Add Urine Microscopic? YES; Appearance Urine Clear (Clear); Bilirubin Urine Negative (Negative); Blood Urine Negative (Negative); Color Urine Yellow (Yellow); Glucose Urine UA Negative (Negative); Ketones Urine 1+ mg/dL (Negative); Leukocyte Esterase Ur Negative LEU/UL (Negative); Mucus Urine Rare /lpf; Nitrate Urine Negative (Negative); Protein Urine Negative (Negative); Specific Grav Ur 1.015 (1.001-1.035); Squamous Epithelial Cell Urine Rare /hpf (Few); Urobilinogen Urine Negative mg/dL (<2.0); WBC Urine 0-3 /hpf
--- NOTE | 2021-10-29 11:00 | PC.NURSE ---
Updated daughter Loki of pt condition and plan
[2021-10-29 11:14] LABS: Troponin I < 0.012 ng/mL (0.000-0.034)
--- NOTE | 2021-10-29 11:15 | PC.NURSE ---
Pt HR slightly increased Dr. Sky ordered fluids before discharge
[2021-10-29] MEDS: SODIUM CHLORIDE 0.9% IV 1,000 ML 999 ML IV CONT (11:27)
[2021-10-29] MEDS: LORazepam INJ (*CRX) 2 MG/ML VIAL 0.5 MG IV PUSH (11:56)
--- NOTE | 2021-10-29 12:00 | PC.NURSE ---
Pt denied EKG and stated no more test, while getting out of bed, Dr. Alexander aware and assisted pt back in bed with multiple attempts of redirection
--- NOTE | 2021-10-29 12:30 | PC.NURSE ---
Pt continues to get out of bed,anxious,removing gown and monitoring slightly combative, Dr. Alexander aware, bed alarm active
[2021-10-29] MEDS: OLANZapine 10 MG INJ VIAL 5 MG IM (12:58)
[2021-10-29] MEDS: WATER, STERILE FOR INJECTION 10 ML VIAL XX (12:59)
--- NOTE | 2021-10-29 13:51 | PC.NURSE ---
Dr. Sky ordered to cancel 6hr troponin
[2021-10-29] MEDS: LACTATED RINGERS 1,000 ML 125 ML IV CONT ×2 (15:35→23:26)
--- NOTE | 2021-10-29 17:08 | PC.NURSE ---
Attempted to give IMU RN report x1 no response
--- NOTE | 2021-10-29 19:26 | PC.NURSE ---
attempted to call report to 3med/surg nurse will call back
--- NOTE | 2021-10-29 19:51 | PC.NURSE ---
pt refuses to answer questions states I don't have a name . Sitter at door for patient safety.
--- NOTE | 2021-10-29 20:14 | PC.NURSE ---
ert was taking ekg lead off left forearm and skin started to tear. lead removed taking skin off 2x1cm open area left forearm dressing applied
--- NOTE | 2021-10-29 20:32 | ADMGEN ---
This patient, Marcella Hernández, was admitted to 3 [facility] Surg Room 304-02. Patient/family oriented to hospital policies and general routines including ID bracelet, bed and alarms, visiting hours, pain management, procedures, bathroom and other care routines, personal items, smoking policy, room service/diet, and visiting hours. Information on how to activate the Rapid Response Team has been discussed. Patient/Family are encouraged to report perceived risks to care and to ask questions if they do not understand what they are told or what they should do.
--- NOTE | 2021-10-29 22:20 | ECG_ITS ---
Measurements Intervals [place] Rate: 104 P: 67 GA: 146 QRS: -70 QRSD: 141 T: 49 QT: 408 QTc: 538 Interpretive Statements SINUS TACHYCARDIA FREQUENT VENTRICULAR PREMATURE COMPLEXES RIGHT BUNDLE BRANCH BLOCK LEFT ANTERIOR FASCICULAR BLOCK BASELINE ARTIFACT- I, II, III, AVR, AVL, AVF, V1-V6 ABNORMAL ECG Electronically Signed On 10-30-2021 6:35:39 PROPERTY FIELD ADJUSTER by Gerson Zazueta D.O.
[2021-10-30] VITALS (9 sets, daily range): BP systolic 123–138; BP diastolic 80–81; PULSE 75–96; RESP 16–20; TEMP 36.8–37.3; O2SAT 97–98; BMI 15.8
--- NOTE | 2021-10-30 04:15 | PM.IMHP ---
H&P: HPI History of Present Illness Date/Time: 10/30/21 04:15 Chief Complaint: Agitation Narrative: This is a 71-year-old female with past medical history significant for dementia, recurrent falls, COPD/emphysema, stroke, patient has been agitated she resides at alf and was brought to the emergency room for evaluation . At the time of my visit patient was very confused and fidgety and restless she was noted to have several skin tears in her hand and bruises in limbs, she was also admitted to the hospital and discharged in the early part of September of 2021 in which he was treated for similar problems and was evaluated and seen by Neurology and Psychiatry however patient comes back with same issues. At the time of my visit I was unable to get any history from the patient she had pressured speech loose associations and was only oriented to person. Preliminary workup was significant for CT of the head which showed chronic infarct x-rays of hands and wrist did not show acute fractures chemistry panel was significant for sodium of 132, A urinalysis shows some RBCs and hyaline cast. Patient has been admitted for further evaluation ,treatment and management. Review of Systems Review of Systems: ROS unobtainable: Yes unobtainable due to medical condition (Dementia) and unobtainable due to mental status (Delirious) PMFSH Past Medical History Medical History Anxiety Asthma COPD (chronic obstructive pulmonary disease) Coronary artery disease Hypertension Osteoarthritis of left knee Osteoporosis Surgical History Surgical History H/O Spinal surgery 5, 6, 7 = Nov 2017 Family History Family History (Updated 10/30/21 @ 02:30 by Alena Mcguire RN) Mother Unknown family medical history Father Unknown family medical history Social History Social History Social History: The patient is listed as a full code. She is listed as currently being a smoker. He is not known how much she drinks Smoking packs per day: 0.5 Smoking cigarettes per day: 10.0 Years smoked: 40 Smoking pack-years: 20.00 Smoking status: Unknown if ever smoked Tobacco type: cigarettes Alcohol intake: unknown Alcohol use details: Occasional Substance use: unknown Substance use type: does not use Additional living arrangements comments: Sister & brother in law Gender identity (if verbalized by the patient): Female Spiritual care concerns: No Meds Home Medications and Allergies Home Medications Medication Instructions Recorded Confirmed Type ipratropium 0.5 mg-albuterol 3 mg 3 ml INHALATION Q4H 11/24/19 10/30/21 History (2.5 mg base)/3 mL nebulization soln rosuvastatin 10 mg PO DAILY 01/03/21 10/30/21 History metoprolol tartrate 12.5 mg PO BID 10/02/21 10/30/21 History sucralfate 1 g PO QID 10/02/21 10/30/21 History nicotine [Nicoderm CQ] 1 patch TRANSDERMAL QAM #0 ea 10/07/21 10/30/21 Rx nystatin 5 ml PO QID 7 Days #0 ml 10/07/21 10/30/21 Rx pantoprazole 40 mg PO Q12HR #30 tablet 10/07/21 10/30/21 Rx sertraline [Zoloft] 50 mg PO QAM #0 tablet 10/07/21 10/30/21 Rx Fleet Enema Extra 1 unit RECTAL Q12H PRN MDD 2 10/30/21 10/30/21 History acetaminophen 650 mg PO Q4H PRN 10/30/21 10/30/21 History albuterol sulfate 2.5 mg INHALATION Q4H PRN 10/30/21 10/30/21 History aspirin [Enteric Coated Aspirin] 81 mg PO QAM 10/30/21 10/30/21 History bisacodyl 10 mg RECTAL PRN PRN 10/30/21 10/30/21 History budesonide-formoterol 2 puff INHALATION Q12H 10/30/21 10/30/21 History collagen (bovine) [Triple [place] 1 ea TOPICAL DAILY 10/30/21 10/30/21 History Collagen] guaifenesin 600 mg PO BID 10/30/21 10/30/21 History lorazepam 0.5 mg PO Q6H PRN 10/30/21 10/30/21 History magnesium hydroxide [Milk of 30 ml PO BID PRN 10/30/21 10/30/21 History Magnesia] olanzapine [Zyprexa] 5 mg
[2021-10-30] MEDS: SILVER SULFADIAZINE 1% CR 50 GM JAR (*BKC) 1 APPLIC TOPICAL (08:05)
[2021-10-30] MEDS: NYSTATIN 100,000 UNITS/ML SUSP 5 ML ORAL.SUSP PO ×4 (10:11→21:04)
[2021-10-30] MEDS: METOPROLOL TARTRATE 12.5 MG TABLET PO ×2 (10:12→21:04)
[2021-10-30] MEDS: guaiFENesin 12 HR 600 MG TABCR PO ×2 (10:12→21:04)
[2021-10-30] MEDS: SERTRALINE HCL 50 MG TABLET PO (10:12)
[2021-10-30] MEDS: SUCRALFATE 1 GM TABLET PO ×4 (10:12→21:04)
[2021-10-30] MEDS: POTASSIUM CHLORIDE 10 MEQ TABLET.ER 20 MEQ PO ×2 (10:12→18:11)
[2021-10-30] MEDS: ROSUVASTATIN 10 MG TABLET PO (10:12)
[2021-10-30] MEDS: OLANZapine 5 MG TABLET PO (10:13)
[2021-10-30] MEDS: NICOTINE (*PBKC) 21 MG PATCH 1 PATCH TRANSDERM (10:13)
[2021-10-30] MEDS: PANTOPRAZOLE 40 MG TABLET PO ×2 (10:13→21:05)
[2021-10-30] MEDS: ASPIRIN 81 MG ENTERIC TABLET PO (10:13)
[2021-10-30] MEDS: LACTATED RINGERS 1,000 ML 125 ML IV CONT (18:03)
[2021-10-30] MEDS: ALBUTEROL SULFATE NEB 2.5 MG/0.5 ML INH INHALATION (20:43)
[2021-10-30] MEDS: IPRATROPIUM BR 0.02% INH SOLN 0.5 MG/2.5 ML VIAL INHALATION (20:44)
[2021-10-31] VITALS (8 sets, daily range): BP systolic 123–180; BP diastolic 79–93; PULSE 77–99; RESP 14–20; TEMP 36.4–37.3; O2SAT 96–100
--- NOTE | 2021-10-31 02:30 | PCRCNOTE ---
Window of time for administration has passed. See next scheduled administration.
[2021-10-31] MEDS: ALBUTEROL SULFATE NEB 2.5 MG/0.5 ML INH INHALATION ×3 (03:38→14:21)
[2021-10-31] MEDS: IPRATROPIUM BR 0.02% INH SOLN 0.5 MG/2.5 ML VIAL INHALATION ×3 (03:39→14:22)
[2021-10-31 07:43] LABS: Anion Gap 11 mmol/L (8-16); Blood Urea Nitrogen 9 mg/dL (7-17); Calcium 8.1 mg/dL (8.4-10.2); Carbon Dioxide 15 mmol/L (22-30); Chloride 107 mmol/L (98-107); Estimated CRCL calculation 43 ml/min; Estimated Glomerular Filt Rate > 60; Glucose 53 mg/dL (65-110); Sodium 133 mmol/L (137-145)
[2021-10-31 09:17] LABS: Glucose Point of Care 44 mg/dl (65-105)
[2021-10-31 09:17] LABS: Glucose Point of Care 169 mg/dl (65-105)
[2021-10-31] MEDS: NYSTATIN 100,000 UNITS/ML SUSP 5 ML ORAL.SUSP PO ×3 (09:49→21:15)
[2021-10-31] MEDS: NICOTINE (*PBKC) 21 MG PATCH 1 PATCH TRANSDERM (09:49)
[2021-10-31] MEDS: SERTRALINE HCL 50 MG TABLET PO (09:50)
[2021-10-31] MEDS: ASPIRIN 81 MG ENTERIC TABLET PO (09:50)
[2021-10-31] MEDS: SILVER SULFADIAZINE 1% CR 50 GM JAR (*BKC) 1 APPLIC TOPICAL (09:50)
[2021-10-31] MEDS: DEXTROSE 50% 25 GM/50 ML SYRINGE IV PUSH (09:50)
[2021-10-31] MEDS: ENOXAPARIN 40 MG/0.4 ML SYRINGE SUB-Q (09:50)
[2021-10-31] MEDS: PANTOPRAZOLE 40 MG TABLET PO ×2 (09:50→21:15)
[2021-10-31] MEDS: OLANZapine 5 MG TABLET PO (09:50)
[2021-10-31] MEDS: DEXAMETHASONE 4 MG TABLET PO (09:51)
[2021-10-31] MEDS: POTASSIUM CHLORIDE 10 MEQ TABLET.ER 20 MEQ PO ×2 (09:51→20:01)
[2021-10-31] MEDS: METOPROLOL TARTRATE 12.5 MG TABLET PO ×2 (09:52→21:15)
[2021-10-31] MEDS: guaiFENesin 12 HR 600 MG TABCR PO ×2 (09:52→21:15)
[2021-10-31] MEDS: ROSUVASTATIN 10 MG TABLET PO (09:53)
[2021-10-31] MEDS: SUCRALFATE 1 GM TABLET PO ×3 (09:54→21:15)
[2021-10-31] MEDS: LACTATED RINGERS 1,000 ML 125 ML IV CONT (10:06)
[2021-10-31 12:39] LABS: Glucose Point of Care 71 mg/dl (65-105)
--- NOTE | 2021-10-31 15:37 | PM.IMPN ---
Progress Note: A&P Assessment and Plan (1) Fall: Qualifiers: Encounter type: initial encounter Qualified Code(s): W19.XXXA - Unspecified fall, initial encounter Code(s): W19.XXXA - Unspecified fall, initial encounter Status: Acute Assessment and Plan: Patient has been having recurrent falls at the senior care with trauma to hands and limbs Patient also had fall while here while the patient try to get up from bed Patient is noted to be very cachectic and on a good amount of psychotropic meds which could potentially be interacting and contributing to this For precautions 10/31/2021 Interval history: 71 year female with history of psychotic and dementia was brought emergency depart for agitation currently patient is calm and cooperative, patient is a very poor appetite this morning patient was hypoglycemic and treated will start the patient on D5 normal saline and monitor, resume patient's home medication. will have a PT OT evaluate the patient and further recommendation to follow. (2) Delirium due to another medical condition, acute, hyperactive: Code(s): F05 - Delirium due to known physiological condition Status: Acute Assessment and Plan: Suspect secondary to multiple psychotropic meds Patient also noted to have mild hyponatremia CBC reviewed, BMP reviewed coma ECG reviewed coma x-rays reviewed, CT of the head reviewed.\ Patient is also noted to have orthostatic hypertension, tachycardia in the low 100s and a temp of 99? degrees Patient also noted to be on a combination of non serotonin reuptake inhibitors, benzodiazepines, and a typical antipsychotic No rigidity on physical exam so serotonin syndrome less likely Supportive care Push for oral intake (3) Skin tear: Status: Acute Assessment and Plan: Local care (4) Tobacco dependence: Code(s): F17.200 - Nicotine dependence, unspecified, uncomplicated Status: Chronic Assessment and Plan: Nicotine patch as needed (5) Acute exacerbation of chronic obstructive pulmonary disease: Code(s): J44.1 - Chronic obstructive pulmonary disease with (acute) exacerbation Status: Acute Assessment and Plan: Continue nebulizers Continue to monitor Subjective Date/time seen: 10/31/21 15:37 Chief Complaint: Agitation Narrative: This is a 71-year-old female with past medical history significant for dementia, recurrent falls, COPD/emphysema, stroke, patient has been agitated she resides at senior care and was brought to the emergency room for evaluation . At the time of my visit patient was very confused and fidgety and restless she was noted to have several skin tears in her hand and bruises in limbs, she was also admitted to the hospital and discharged in the early part of September of 2021 in which he was treated for similar problems and was evaluated and seen by Neurology and Psychiatry however patient comes back with same issues. At the time of my visit I was unable to get any history from the patient she had pressured speech loose associations and was only oriented to person. Preliminary workup was significant for CT of the head which showed chronic infarct x-rays of hands and wrist did not show acute fractures chemistry panel was significant for sodium of 132, A urinalysis shows some RBCs and hyaline cast. Patient has been admitted for further evaluation ,treatment and management. 10/31/2021 Interval history: 71 year female with history of psychotic and dementia was brought emergency depart for agitation currently patient is calm and cooperative, patient is a very poor appetite this morning patient was hypoglycemic and treated will start the patient on D5 normal saline and monitor, resume patient's home medication. will have a PT OT evaluate the patient and further recommendation to follow. Review of Systems Review of Systems: ROS unobtainable: Yes unobtainable due to medical condition Exam Narr
[2021-10-31] MEDS: LORazepam (*CRX) 0.5 MG TABLET PO (21:15)
--- NOTE | 2021-10-31 23:23 | PCRCNOTE ---
Albuterol & atrovent nebulizer treatments scheduled for 10/31/21 at 20:00 not administered. RT not available during administration window due to priorities in Emergency Department.
[2021-11-01 00:24] LABS: Glucose Point of Care 107 mg/dl (65-105)
[2021-11-01 00:37] VITALS: BP 135/96; PULSE 97; RESP 20; TEMP 36.9; O2SAT 92
[2021-11-01 04:55] VITALS: BP 122/95; PULSE 61; RESP 20; TEMP 37.2; O2SAT 90
[2021-11-01] MEDS: SUCRALFATE 1 GM TABLET PO (06:23)
[2021-11-01] MEDS: LORazepam (*CRX) 0.5 MG TABLET PO (06:25)
[2021-11-01 06:56] LABS: Hematocrit 33.2 % (37.0-47.0); Hemoglobin 10.4 g/dL (12.0-15.0); Mean Corpuscular HGB Conc 31.3 g/dl (32-36); Mean Corpuscular Hemoglobin 28.2 pg (26-34); Mean Platelet Volume 10.8 fl (7.4-10.4); Platelet Count Result 146 k/mm3 (150-375); Red Blood Count 3.69 M/mm3 (4.2-5.4); Red Cell Distribution Width 15.4 % (11.5-14.5); White Blood Count 9.2 K/mm3 (4.5-10.0)
[2021-11-01 07:07] LABS: Anion Gap 18 mmol/L (8-16); Blood Urea Nitrogen 10 mg/dL (7-17); Calcium 8.5 mg/dL (8.4-10.2); Carbon Dioxide 13 mmol/L (22-30); Chloride 107 mmol/L (98-107); Estimated CRCL calculation 34 ml/min; Estimated Glomerular Filt Rate > 60; Glucose 111 mg/dL (65-110); Potassium 3.5 mmol/L (3.4-5.0); Sodium 138 mmol/L (137-145)
[2021-11-01] MEDS: ENOXAPARIN 40 MG/0.4 ML SYRINGE SUB-Q (08:00)
[2021-11-01] MEDS: SILVER SULFADIAZINE 1% CR 50 GM JAR (*BKC) 1 APPLIC TOPICAL (08:00)
[2021-11-01] MEDS: IPRATROPIUM BR 0.02% INH SOLN 0.5 MG/2.5 ML VIAL INHALATION ×2 (08:12→12:03)
[2021-11-01] MEDS: ALBUTEROL SULFATE NEB 2.5 MG/0.5 ML INH INHALATION ×2 (08:12→12:03)
[2021-11-01 08:13] VITALS: BP 147/90; PULSE 86; RESP 14; TEMP 36.7; O2SAT 91
[2021-11-01] MEDS: FLUTICASONE/SALMETEROL 45-21 MCG (*SP) INHALER 2 PUFF INHALATION (08:13)
[2021-11-01] MEDS: OLANZapine 5 MG TABLET PO (09:19)
[2021-11-01 09:40] LABS: Glucose Point of Care 97 mg/dl (65-105)
[2021-11-01] MEDS: OLANZapine 10 MG INJ VIAL 5 MG IM (09:50)
[2021-11-01] MEDS: WATER, STERILE FOR INJECTION 10 ML VIAL XX (09:50)
--- NOTE | 2021-11-01 10:17 | WPDCDIQUERY2 ---
CDI Query Clarification Request -EDP provider documented that patient was covid positive on 10/27/2021 . -Pt is on Dexamethasone 4mg po daily -No further mention of Covid in record. Please clarify if Covid is a current diagnosis for patient or if ruled out. <Deepali Cote RN - Last Filed: 11/01/21 10:21> Clarified Diagnosis (1) COVID: Code(s): U07.1 - COVID-19 <Deepali Cote RN - Last Filed: 11/01/21 10:21> Status: Acute <Deepali Cote RN - Last Filed: 11/01/21 10:21> Assessment and Plan: no COVID test was done <Raudel Taylor MD - Last Filed: 11/18/21 18:35>
--- NOTE | 2021-11-01 11:47 | PCNFU ---
Nutrition Follow-Up Complete: Inadequate oral intake related to covid as evidenced by reported intake of 0% Goal: Meet nutritional needs Pt. is progressing towards goal. No new goal at this time. Pt current nutrition is a heart healthy diet. Last recorded weight is 41.9 kg. Recommend re-weighing pt. prior to discharge to assess any significant weight fluctuations. Bowel Motility: + BM 11/01/2021 Labs Reviewed: Hgb 10.4, Hct 33.2, Glu 111 Meds Noted: Albuterol, Lovenox, Glucagon, Bisacodyl, Glucose, Novolog, Atrovent Neb, Lopressor, Protonix, Kcl Tablet, Zoloft, Carafate Skin: No skin break down at this time. WNL. Additional Notes: Pt. is eating little to nothing at meals. She refuses most meals and if not refusing the meal she consumes 0-10% of the meal. She is ordered ensure compact BID providing an additional 220 calories and 9 grams of protein to increase oral intake. Pt. is COVID positive so not able to physically speak with her. Attempted calling several times with no answer. If oral intake does not increase recommend advanced nutrition support depending on pt. and family wishes. Will monitor labs, wt, medication, and reported intake every 3 days
[2021-11-01] MEDS: DEXTROSE 50% 25 GM/50 ML SYRINGE IV PUSH (11:49)
[2021-11-01 11:52] LABS: Alveolar/Arterial O2 Gradient 326.3 mmHg; Base Excess ABG -11.7 mEq/l (+/-2.0); Fractional Inspired Oxygen 100 %; HCO3 ABG 11.9 mEq/l (22.0-26.0); Oxygen Content ABG 16.1 %vol (16.0-22.0); Oxygen Saturation ABG 99.8 % (95.0-100.0); Oxyhemoglobin 98.4 % THb (90.0-100.0); PO2 ABG 365.3 mmHg (80.0-100.0); PO2 FiO2 Ratio Arterial Blood 3.65 %; Total Hemoglobin 10.9 g/dL (12.0-18.0); pH ABG 7.362 (7.350-7.450)
[2021-11-01 11:54] LABS: Device NON-REBREATHER MASK; Modified Allen's Test Pass; PCO2 ABG 21.4 mmHg (35.0-45.0); Site Drawn LEFT BRACHIAL
[2021-11-01 11:56] VITALS: BP 91/73; PULSE 91; RESP 16; TEMP 36.8; O2SAT 91
[2021-11-01 12:03] VITALS: PULSE 105; RESP 22
[2021-11-01 12:27] LABS: Glucose Point of Care 116 mg/dl (65-105)
[2021-11-01 13:35] LABS: D Dimer 1.67 ug/mL (<0.48)
[2021-11-01] MEDS: NICOTINE (*PBKC) 21 MG PATCH 1 PATCH TRANSDERM (15:07)
[2021-11-01] MEDS: WATER FOR IRRIGATION, STERILE 1,000 ML BOTTLE 1000 ML (15:08)
[2021-11-01] MEDS: SODIUM CHLORIDE 0.9% IV 250 ML 999 ML IV CONT (15:09)
--- NOTE | 2021-11-01 15:10 | PC.NURSE ---
Patient admitted under [facility] services. New V number obtained.
--- NOTE | 2021-11-01 15:52 | PM.DS ---
DS: Admitting Diagnosis Discharge Date 11/01/21 Admitting Diagnosis agitation DS: Discharge Diagnosis Discharge Diagnosis (1) Fall: Qualifiers: Encounter type: initial encounter Qualified Code(s): W19.XXXA - Unspecified fall, initial encounter Code(s): W19.XXXA - Unspecified fall, initial encounter Status: Acute Assessment and Plan: Patient has been having recurrent falls at the correction with trauma to hands and limbs Patient also had fall while here while the patient try to get up from bed Patient is noted to be very cachectic and on a good amount of psychotropic meds which could potentially be interacting and contributing to this For precautions 10/31/2021 Interval history: 71 year female with history of psychotic and dementia was brought emergency depart for agitation currently patient is calm and cooperative, patient is a very poor appetite this morning patient was hypoglycemic and treated will start the patient on D5 normal saline and monitor, resume patient's home medication. will have a PT OT evaluate the patient and further recommendation to follow. (2) Delirium due to another medical condition, acute, hyperactive: Code(s): F05 - Delirium due to known physiological condition Status: Acute Assessment and Plan: Suspect secondary to multiple psychotropic meds Patient also noted to have mild hyponatremia CBC reviewed, BMP reviewed coma ECG reviewed coma x-rays reviewed, CT of the head reviewed.\ Patient is also noted to have orthostatic hypertension, tachycardia in the low 100s and a temp of 99? degrees Patient also noted to be on a combination of non serotonin reuptake inhibitors, benzodiazepines, and a typical antipsychotic No rigidity on physical exam so serotonin syndrome less likely Supportive care Push for oral intake (3) Skin tear: Status: Acute Assessment and Plan: Local care (4) Tobacco dependence: Code(s): F17.200 - Nicotine dependence, unspecified, uncomplicated Status: Chronic Assessment and Plan: Nicotine patch as needed (5) Acute exacerbation of chronic obstructive pulmonary disease: Code(s): J44.1 - Chronic obstructive pulmonary disease with (acute) exacerbation Status: Acute Assessment and Plan: Continue nebulizers Continue to monitor DS: Summary Hospital Course Reason for hospitalization: Chief Complaint: Agitation Narrative: This is a 71-year-old female with past medical history significant for dementia, recurrent falls, COPD/emphysema, stroke, patient has been agitated she resides at [facility] and was brought to the emergency room for evaluation . At the time of my visit patient was very confused and fidgety and restless she was noted to have several skin tears in her hand and bruises in limbs, she was also admitted to the hospital and discharged in the early part of September of 2021 in which he was treated for similar problems and was evaluated and seen by Neurology and Psychiatry however patient comes back with same issues. At the time of my visit I was unable to get any history from the patient she had pressured speech loose associations and was only oriented to person. Preliminary workup was significant for CT of the head which showed chronic infarct x-rays of hands and wrist did not show acute fractures chemistry panel was significant for sodium of 132, A urinalysis shows some RBCs and hyaline cast. Patient has been admitted for further evaluation ,treatment and management. Hospital Course: 10/31/2021 Interval history: 71 year female with history of psychotic and dementia was brought emergency depart for agitation currently patient is calm and cooperative, patient is a very poor appetite this morning patient was hypoglycemic and treated will start the patient on D5 normal saline and monitor, resume patient's home medication. will have a PT OT evaluate the patient and further recommendation to follow
== END 2021-11-01 15:11 | disposition hospice, inpatient (51) | DRG 884 ==
LOC: ANHED 10:32 → ANH3MEDSUR 19:00
PROVIDERS: Family Medicine; Admitting Provider Student in an Organized Health Care Education/Training Program; Emergency Provider Emergency Medicine; PCP Family Medicine; Visit Provider Family Medicine
DX: F03.91 Unspecified dementia, unspecified severity, with behavioral disturbance (principal); U07.1 COVID-19; F05 Delirium due to known physiological condition; R64 Cachexia; Z68.1 Body mass index [BMI] 19.9 or less, adult; E87.1 Hypo-osmolality and hyponatremia; T43.95XA Adverse effect of unspecified psychotropic drug, initial encounter; J43.9 Emphysema, unspecified; S61.412A Laceration without foreign body of left hand, initial encounter; S61.411A Laceration without foreign body of right hand, initial encounter; W19.XXXA Unspecified fall, initial encounter; I95.1 Orthostatic hypotension; I49.3 Ventricular premature depolarization; I25.10 Atherosclerotic heart disease of native coronary artery without angina pectoris; M17.12 Unilateral primary osteoarthritis, left knee; M81.0 Age-related osteoporosis without current pathological fracture; F17.210 Nicotine dependence, cigarettes, uncomplicated; R29.6 Repeated falls; Z86.73 Personal history of transient ischemic attack (TIA), and cerebral infarction without residual deficits
CPT/HCPCS: 36415; 36600; 51701; 70450; 71045; 73030; 73110; 80048; 81001; 82805; 82948; 84484; 85025; 85027; 85380; 85610; 85730; 93005; 94640; 96361; 96372; 96374; 96375; 97161; 97165; 99285; A9270; G0378; J1650; J2060; J7030; J7120; J8540

== ENCOUNTER 2021-11-01 10:35 | Outpatient (RCR) | payer OTHER, MEDICARE, MEDICAID, SELFPAY | END 2021-11-02 10:40 | disposition hospice, inpatient (51) | LOC: ANHPT 10:35 | PROVIDERS: PCP Family Medicine; Visit Provider Orthopaedic Surgery | DX: M17.12 Unilateral primary osteoarthritis, left knee (principal); R26.89 Other abnormalities of gait and mobility | CPT/HCPCS: 99199 ==

== ENCOUNTER 2021-11-01 15:12 | HOS | payer OTHER, MEDICARE, MEDICAID, SELFPAY ==
[2021-11-01 15:12] VITALS: O2SAT 90; BMI 15.8
[2021-11-01] MEDS: HYDROmorphone HCL/PF (*CRX) 50 MG in SODIUM CHLORIDE 0.9% IV 95 ML IV CONT (16:15)
--- NOTE | 2021-11-01 16:23 | PM.IMHP ---
H&P: HPI History of Present Illness Date/Time: 11/01/21 16:23 Chief Complaint: Uncontrolled dyspnea and restlessness Narrative: 71-year-old female with history of COPD was living at home alone until recently when her daughters found that she was falling and impulsive and un reliable. Memory was an issue. They moved her to a long term. There she was confused and fell frequently. She was admitted to the hospital after fall on October. CT of the brain showed old small stroke and cerebral or atherosclerosis. Labs showed mild anemia. There was no sign of infection. She remained confused and agitated taking very little p.o. intake. Because of her confusion and declining functional status her daughter is opted to admit her to inpatient hospice for comfort care. Review of Systems Review of Systems: ROS unobtainable: Yes unobtainable due to medical condition PMFSH Past Medical History Medical History Anxiety Asthma COPD (chronic obstructive pulmonary disease) Coronary artery disease Hypertension Osteoarthritis of left knee Osteoporosis Surgical History Surgical History H/O Spinal surgery 5, 6, 7 = Nov 2017 Family History Family History Mother Unknown family medical history Father Unknown family medical history Social History Social History (Updated 11/01/21 @ 16:27 by Noé Key MD) Social History: DNR. Resides in facility. Smoker. Smoking packs per day: 0.5 Smoking cigarettes per day: 10.0 Years smoked: 40 Smoking pack-years: 20.00 Smoking status: Current every day smoker Tobacco type: cigarettes Alcohol intake: unknown Alcohol use details: Occasional Substance use: unknown Substance use type: does not use Living arrangements: long term Additional living arrangements comments: Sister & brother in law Gender identity (if verbalized by the patient): Female Spiritual care concerns: No Meds Home Medications and Allergies Home Medications Medication Instructions Recorded Confirmed Type ipratropium 0.5 mg-albuterol 3 mg 3 ml INHALATION Q4H 11/24/19 10/30/21 History (2.5 mg base)/3 mL nebulization soln rosuvastatin 10 mg PO DAILY 01/03/21 10/30/21 History metoprolol tartrate 12.5 mg PO BID 10/02/21 10/30/21 History sucralfate 1 g PO QID 10/02/21 10/30/21 History nicotine [Nicoderm CQ] 1 patch TRANSDERMAL QAM #0 ea 10/07/21 10/30/21 Rx nystatin 5 ml PO QID 7 Days #0 ml 10/07/21 10/30/21 Rx pantoprazole 40 mg PO Q12HR #30 tablet 10/07/21 10/30/21 Rx sertraline [Zoloft] 50 mg PO QAM #0 tablet 10/07/21 10/30/21 Rx Fleet Enema Extra 1 unit RECTAL Q12H PRN MDD 2 10/30/21 10/30/21 History acetaminophen 650 mg PO Q4H PRN 10/30/21 10/30/21 History albuterol sulfate 2.5 mg INHALATION Q4H PRN 10/30/21 10/30/21 History aspirin [Enteric Coated Aspirin] 81 mg PO QAM 10/30/21 10/30/21 History bisacodyl 10 mg RECTAL PRN PRN 10/30/21 10/30/21 History budesonide-formoterol 2 puff INHALATION Q12H 10/30/21 10/30/21 History collagen (bovine) [Triple [place] 1 ea TOPICAL DAILY 10/30/21 10/30/21 History Collagen] guaifenesin 600 mg PO BID 10/30/21 10/30/21 History lorazepam 0.5 mg PO Q6H PRN 10/30/21 10/30/21 History magnesium hydroxide [Milk of 30 ml PO BID PRN 10/30/21 10/30/21 History Magnesia] olanzapine [Zyprexa] 5 mg PO QAM 10/30/21 10/30/21 History potassium chloride [Klor-Con 10] 20 meq PO BID 10/30/21 10/30/21 History silver sulfadiazine 1 applic TOPICAL DAILY 10/30/21 10/30/21 History Allergies Allergy/AdvReac Type Severity Reaction Status Date / Time codeine AdvReac Unknown Nausea and Verified 10/30/21 06:36 Vomiting propoxyphene AdvReac Unknown Nausea Verified 10/30/21 06:36 Exam Narrative: Frail elderly appearing female who is nonverbal restless hyperventilating and moving arms and l
[2021-11-01] MEDS: HYDROmorphone HCL INJ (*CRX) 1 MG/ML SYR IV PUSH (16:30)
[2021-11-01] MEDS: MAGNESIUM SULF 2 GM/WATER 50ML 2 GM/50 ML BAG IVPB (17:16)
[2021-11-01] MEDS: PHENobarbitaL sodium (*CRX) 130 MG/ML VIAL 60 MG IV PUSH (22:41)
[2021-11-02 00:57] LABS: Glucose Point of Care 108 mg/dl (65-105)
[2021-11-02 08:43] VITALS: BP 55/33; PULSE 153; RESP 16; TEMP 37.2; O2SAT 82
[2021-11-02] MEDS: PHENobarbitaL sodium (*CRX) 130 MG/ML VIAL 60 MG IV PUSH (08:53)
--- NOTE | 2021-11-05 17:21 | P.DN_ITS ---
Discharge Summary Date and Time Date of : 11/02/21 Time of : 12:04 Provider Pronounced By: Angelika Hutchinson RN Probable Cause of Probable Cause of : ACUTE HYPOXIC RESPIRATORY FAILURE DUE TO COPD Summary Hospital Course: ADMITTED TO INPATIENT HOSPICE SERVICE DUE TO UNCONTROLLED DYSPNEA. MEDICATIONS TITRATED TO COMFORT. PATIENT PEACEFULLY. Additional Data Confirmation of as documented by pronouncing clinician: Pupillary Reflex, Palpable Pulses, Response to Stimuli, Heart Tones and Breath Sounds Name of Provider Notified: Noé Key Time Provider Notified: 12:15 Provider Requests Autopsy: No Family Requests Autopsy: No [employer] Notified: Yes Date [facility] Notified of : 11/02/21 Time [facility] Notified of : 12:23
== END 2021-11-02 12:04 | disposition expired | DRG 951 ==
LOC: ANH3MEDSUR 15:18
PROVIDERS: Admitting Provider Internal Medicine; PCP Family Medicine; Visit Provider Internal Medicine
DX: Z51.5 Encounter for palliative care (principal); J96.01 Acute respiratory failure with hypoxia; F05 Delirium due to known physiological condition; J44.9 Chronic obstructive pulmonary disease, unspecified; D64.9 Anemia, unspecified; I25.10 Atherosclerotic heart disease of native coronary artery without angina pectoris; I10 Essential (primary) hypertension; I67.2 Cerebral atherosclerosis; R29.6 Repeated falls; F17.210 Nicotine dependence, cigarettes, uncomplicated; Z86.73 Personal history of transient ischemic attack (TIA), and cerebral infarction without residual deficits; Z79.82 Long term (current) use of aspirin
CPT/HCPCS: 82948; J1170; J2560; J3475